=== PATIENT | female | born 1960 | race Two or more races ===

== ENCOUNTER → 2017-12-08 | Outpatient (CLI) | payer OTHER ==
--- NOTE | 2017-12-08 15:13 | RADIOLOGY REPORT (SQ) ---
EXAM DESCRIPTION: VENOUS BILATERAL LOWER COMPLETED DATE/TIME: 12/08/2017 3:01 pm REASON FOR STUDY: BLE LOCALIZED EDEMA R60.0 LOCALIZED EDEMA COMPARISON: None. TECHNIQUE: Dynamic and static mendoza scale and color images acquired of both lower extremity venous sy stems. Selected spectral images acquired with additional compression and augmentation maneuvers. Imag es stored on PACS. LIMITATIONS: None. FINDINGS: RIGHT LEG COMMON FEMORAL AND FEMORAL: Normal phasicity, compression and augmentation. No visualized echogenic m aterial on mendoza scale. No defects on color images. POPLITEAL: Normal compression and augmentation. No visualized echogenic material on mendoza scale. No de fects on color images. CALF VESSELS: Normal compression and augmentation. No visualized echogenic material on mendoza scale. No defects on color image. GSV AND SSV: Normal compression. No visualized echogenic material on mendoza scale. No defects on color images. ANY DEEP VENOUS INSUFFICIENCY: Not evaluated. ANY EVIDENCE OF POPLITEAL CYST: No. OTHER: No other significant finding. LEFT LEG COMMON FEMORAL AND FEMORAL: Normal phasicity, compression and augmentation. No visualized echogenic m aterial on mendoza scale. No defects on color images. POPLITEAL: Normal compression and augmentation. No visualized echogenic material on mendoza scale. No de fects on color images. CALF VESSELS: Normal compression and augmentation. No visualized echogenic material on mendoza scale. No defects on color images. GSV AND SSV: Normal compression. No visualized echogenic material on mendoza scale. No defects on color images. ANY DEEP VENOUS INSUFFICIENCY: Not evaluated. ANY EVIDENCE POPLITEAL CYST: No. OTHER: No other significant finding. IMPRESSION: NO EVIDENCE DVT OR SVT IN EITHER LEG. TECHNICAL DOCUMENTATION: JOB ID: [id number] [employer]- All Rights Reserved Reading location - IP/workstation name: [email or web address]
== END ==
LOC: SP 13:32
PROVIDERS: ATTEND Physician Assistant
DX: R60.0 Localized edema (principal)
CPT/HCPCS: 93970

== ENCOUNTER 2018-01-14 18:56 | Emergency (ER) | payer OTHER ==
--- NOTE | 2018-01-14 20:34 | EKG REPORT ---
SEVERITY:- BORDERLINE ECG - SINUS RHYTHM BORDERLINE PROLONGED QT INTERVAL : Confirmed by: Sp Fish 14-Jan-2018 17:34:01
[2018-01-14] MEDS ORDERED: ONDANSETRON HCL INJ/PF 4 MG/2 ML SDV IV ONE (20:36)
[2018-01-14] MEDS ORDERED: FENTANYL CITRATE INJ/PF 100 MCG/2 ML AMPUL IV ONE (20:37)
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
[2018-01-14] MEDS ORDERED: NORMAL SALINE 1000 ML 1,000 ML IV ONE (21:36)
--- NOTE | 2018-01-14 21:37 | ER Document Report ---
ED General - General Chief Complaint: Abdominal Pain Stated Complaint: ABDOMINAL PAIN, VOMITING Time Seen by Provider: 01/14/18 20:35 Notes: Patient is a 57-year-old female with a past medical history of hypertension, chronic alcohol use, restless leg syndrome, who presents with 4-5 hours of epigastric abdominal pain with associated nausea and vomiting. She states that the pain came on relatively abruptly and has been ongoing since that time. She describes it as a stabbing, moderate to severe pain to her epigastric region radiating through into her back. Nothing seems to improve or worsen her symptoms. She does admit to regular heavy alcohol use including today. She denies any history of pancreatitis in the past. She denies any history of alcohol withdrawal but does admit to drinking beer every day. She has not seen her general doctor regarding today's concerns. She denies any fever or constitutional symptoms. TRAVEL OUTSIDE OF THE [place] IN LAST 30 DAYS: No - Related Data Allergies/Adverse Reactions: No Known Allergies Allergy (Unverified 01/14/18 18:58) Past Medical History - General Information source: Patient - Social History Smoking Status: Current Every Day Smoker Cigarette use (# per day): Yes Frequency of alcohol use: Heavy Drug Abuse: None Lives with: Alone Family History: Reviewed & Not Pertinent Patient has suicidal ideation: No Patient has homicidal ideation: No Renal/ Medical History: Denies: Hx Peritoneal Dialysis Musculoskeletal Medical History: Reports Hx Arthritis Psychiatric Medical History: Reports: Hx Depression Past Surgical History: Reports: Hx Breast Surgery, Hx Oral Surgery, Hx Orthopedic Surgery Review of Systems - Review of Systems Notes: Constitutional: Negative for fever. HENT: Negative for sore throat. Eyes: Negative for visual changes. Cardiovascular: Negative for chest pain. Respiratory: Negative for shortness of breath. Gastrointestinal: Positive for abdominal pain and vomiting Genitourinary: Negative for dysuria. Musculoskeletal: Positive for mid back pain Skin: Negative for rash. Neurological: Negative for headaches, weakness or numbness. 10 point ROS negative except as marked above and in HPI. Physical Exam - Vital signs Vitals: Temp Pulse Resp BP Pulse Ox 97.5 F 64 20 128/70 H 96 01/14/18 19:11 01/14/18 19:11 01/14/18 19:11 01/14/18 19:11 01/14/18 19:11 Interpretation: Normal Notes: PHYSICAL EXAMINATION: GENERAL: Appears moderately uncomfortable but in no acute distress HEAD: Atraumatic, normocephalic. EYES: Pupils equal round and reactive to light, extraocular movements intact, sclera anicteric, conjunctiva are normal. ENT: nares patent, oropharynx clear without exudates. Moderately dry mucous membranes. NECK: Normal range of motion, supple without lymphadenopathy LUNGS: Breath sounds clear to auscultation bilaterally and equal. No wheezes rales or rhonchi. HEART: Regular rate and rhythm without murmurs ABDOMEN: Soft, focal tenderness to the epigastrium but no other localized areas of tenderness, normoactive bowel sounds. No guarding, no rebound. No masses appreciated. EXTREMITIES: Normal range of motion, no pitting or edema. No cyanosis. NEUROLOGICAL: No focal neurological deficits. Moves all extremities spontaneously and on command. PSYCH: Normal mood, normal affect. SKIN: Warm, Dry, normal turgor, no rashes or lesions noted. Course - Re-evaluation Re-evalutation: 01/14/18 21:36 Patient presents with clinical history and exam and labs to suggest acute pancreatitis. Lipase is markedly elevated today. Patient admits to alcohol use as the trigger for the acute episode of pancreatitis. Patient does have hyponatremia although we have no old for comparison but given both hyponatremia and hypochloremia consistent with heavy alcohol intake which patient does admit to. At time of arrival, patient's vitals are within normal limits, they are well-appearing and in no acute distress. The patient has tolerated oral intake without difficulty. Pain was able to be controlled here in the emergency department with oral medications. [place] score is 1. I have encouraged hospitalization for the patient given her hyponatremia and vomiting but she has declined stating she would like to go home and manage this as an outpatient. The patient states that she needs to go home, take care of her animals, and states that she will return if she is not improving. She has capacity, verbalizes understanding that she could get sicker as an outpatient which could include multiple complications including seizures, . I have emphasized with the patient that I am concerned about the low probability of success in outpatient management particularly given her frequent alcohol use. I have emphasized that I am also concerned about what would happen if she stopped drinking alcohol. The patient states that she has gone more than 24 hours repeatedly within the past 6 months without having any withdrawal symptoms and that she has never had significant alcohol withdrawal. She states that she is very confident that she can discontinue alcohol without any significant complications and does not wish to be hospitalized for management of any potential alcohol withdrawal symptoms. At this time, per patient request, will discharge with return precautions and follow-up recommendations. Verbal discharge instructions given a the bedside and opportunity for questions given. Medication warnings reviewed. Patient is in agreement with this plan and has verbalized understanding of return precautions and the need for primary care follow-up in the next 24 hours. - Vital Signs Vital signs: Temp Pulse Resp BP Pulse Ox 97.6 F 64 18 184/85 H 93 01/15/18 02:09 01/15/18 02:09 01/15/18 02:09 01/15/18 02:09 01/15/18 02:09 - Laboratory Result Diagrams: 01/14/18 21:43 01/14/18 21:43 Laboratory results interpreted by me: 01/14/18 01/14/18 01/14/18 21:43 21:43 21:43 RDW 16.1 H Seg Neutrophils % 86.7 H Lymphocytes % 9.0 L Sodium 121.5 L Potassium 3.5 L Chloride 79 L Direct Bilirubin 0.5 H AST 166 H ALT 64 H Alkaline Phosphatase 191 H Lipase 2945.5 H Urine Protein 30 H Urine Ketones TRACE H Urine Blood SMALL H - Diagnostic Test Radiology reviewed: Reports reviewed Discharge - Discharge Clinical Impression: Hyponatremia, Alcohol abuse Acute alcoholic pancreatitis Qualifiers: Acute pancreatitis complication: no infection or necrosis Qualified Code(s): K85.20 - Alcohol induced acute pancreatitis without necrosis or infection Nausea and vomiting Qualifiers: Vomiting type: unspecified Vomiting Intractability: non-intractable Qualified Code(s): R11.2 - Nausea with vomiting, unspecified Condition: Stable Disposition: HOME, SELF-CARE Additional Instructions: You were seen today for alcohol-induced pancreatitis. Please avoid alcohol in any quantity in the future as this could cause a recurrence of your pancreatitis. Please keep in mind that pancreatitis can be a very serious condition that can even result in . Your case today appears mild and it is safe for you to go home today with medications for pain and nausea. Please drink plenty of fluids such as Pedialyte, (try to avoid excessive plain water consumption because your salt level was low) over the next several days and try to avoid food ingestion until your pain is resolved. Please return to the emergency department immediately if you develop persistent vomiting that prohibits you from taking your medications or keeping fluids down, you have a seizure, you develop a fever of greater than 101F, you have worsening pain, you become confused, you become short of breath, or have any other symptoms that are worrisome to you. Please follow-up with your primary care doctor in the next 24-48 hours. Prescriptions: Morphine Sulfate [Morphine Ir 15 mg Tablet] 15 mg PO Q6HP PRN #12 tablet PRN Reason: Ondansetron [Zofran Odt 4 mg Tablet] 1 - 2 tab PO Q4H PRN #15 tab.rapdis PRN Reason: For Nausea/Vomiting Referrals: SAUL NÚÑEZ PA [Primary Care Provider] - Follow up tomorrow
[2018-01-14 22:02] LABS: ABSOLUTE LYMPHOCYTES (AUTO) 0.8 10^3/uL (0.5-4.7); ABSOLUTE MONOCYTES (AUTO) 0.3 10^3/uL (0.1-1.4); ABSOLUTE NEUT (AUTO) 7.3 10^3/uL (1.7-8.2); BASOPHILS % (AUTO) 0.3 % (0-2); EOSINOPHILS % (AUTO) 0.2 % (0-6); HEMATOCRIT 41.5 % (36.0-47.0); HEMOGLOBIN 14.7 g/dL (12.0-15.5); MEAN CORPUSCULAR HEMOGLOBIN 31.8 pg (27.0-33.4); MEAN CORPUSCULAR HGB CONC 35.4 g/dL (32.0-36.0); MEAN CORPUSCULAR VOLUME 90 fl (80-97); MONOCYTES % (AUTO) 3.8 % (3-13); PLATELET COUNT 215 10^3/uL (150-450); RED BLOOD COUNT 4.62 10^6/uL (3.72-5.28); RED CELL DISTRIBUTION WIDTH 16.1 % (11.5-14.0); SEGMENTED NEUTROPHILS % (AUTO) 86.7 % (42-78); TOTAL CELLS COUNTED % (AUTO) 100 %; WHITE BLOOD COUNT 8.4 10^3/uL (4.0-10.5)
[2018-01-14 22:18] LABS: APPEARANCE,URINE CLEAR; BILIRUBIN,URINE NEGATIVE (NEGATIVE); COLOR,URINE YELLOW; GLUCOSE, URINE NEGATIVE (NEGATIVE); KETONES,URINE TRACE mg/dL (NEGATIVE); LEUKOCYTE ESTERASE,URINE NEGATIVE (NEGATIVE); NITRITE,URINE NEGATIVE (NEGATIVE); PROTEIN,URINE 30 mg/dL (NEGATIVE); URINE SPECIFIC GRAVITY 1.016; UROBILINOGEN,URINE NEGATIVE mg/dL (<2.0)
[2018-01-14] MEDS: MORPHINE SULFATE 10 MG/ML INJ IV PRN (22:23)
[2018-01-14 22:43] LABS: ALANINE AMINOTRANSFERASE 64 U/L (9-52); ALBUMIN 4.1 g/dL (3.5-5.0); ALKALINE PHOSPHATASE 191 U/L (38-126); ANION GAP 16 (5-19); ASPARTATE AMINO TRANSFERASE 166 U/L (14-36); BILIRUBIN,DIRECT 0.5 mg/dL (0.0-0.4); BILIRUBIN,TOTAL 0.9 mg/dL (0.2-1.3); BLOOD UREA NITROGEN 11 mg/dL (7-20); CALCIUM 8.8 mg/dL (8.4-10.2); CARBON DIOXIDE 27 mmol/L (22-30); CHLORIDE 79 mmol/L (98-107); GLUCOSE 102 mg/dL (75-110); POTASSIUM 3.5 mmol/L (3.6-5.0); SODIUM 121.5 mmol/L (137-145); TOTAL PROTEIN 7.5 g/dL (6.3-8.2)
[2018-01-14 22:51] LABS: LIPASE 2945.5 U/L (23-300)
--- NOTE | 2018-01-15 00:22 | RADIOLOGY REPORT (SQ) ---
EXAM DESCRIPTION: US ABDOMEN LIMITED COMPLETED DATE/TME: 01/14/2018 21:37 CLINICAL HISTORY: upper abdominal pain, vomiting COMPARISON: None. TECHNIQUE: Real-time sonographic images of the right upper abdomen were obtained using a curved multihertz transducer. FINDINGS: Pancreas: Not visualized due to overlying structures. Vascular: The visualized portions of the aorta and IVC are unremarkable. Liver: The liver has normal contour and increased echogenicity. Hepatopedal flow in the portal vein. Findings confirmed with color and spectral Doppler imaging. The common bile duct is not visualized. Gallbladder: The gallbladder has a normal appearance. No gallstones identified. No wall thickening or pericholecystic fluid. Positive reported sonographic Albarran sign. Right Kidney: The right kidney measures 10.2 cm in length. No hydronephrosis, solid renal mass, or shadowing calculi. IMPRESSION: 1. No gallstones identified. 2. Hepatic steatosis.
[2018-01-15] MEDS: MORPHINE SULFATE 10 MG/ML INJ IV PRN (00:27)
[2018-01-15] MEDS ORDERED: NORMAL SALINE 1000 ML 1,000 ML IV ONE (00:29)
[2018-01-15] MEDS ORDERED: MORPHINE SULFATE IR 15 MG TABLET PO ONE (00:49)
[2018-01-15] MEDS ORDERED: ONDANSETRON ODT 4 MG TAB (6 TAB/ER DISP) PO PRN (00:57)
[2018-01-15 02:10] VITALS: BP 184/85
== END 2018-01-15 02:14 | disposition home or self-care (01) ==
LOC: ER 18:56
DX: K85.20 Alcohol induced acute pancreatitis without necrosis or infection (principal); F10.10 Alcohol abuse, uncomplicated; E87.1 Hypo-osmolality and hyponatremia; R11.2 Nausea with vomiting, unspecified; R10.13 Epigastric pain; F17.210 Nicotine dependence, cigarettes, uncomplicated
CPT/HCPCS: 93005; 99285; 96361; 96374; 96375; 36415; 83690; 85025; 80053; 81001; 87493; 76705; 93010; J3010; J2270 ×2; J2405; J7030

== ENCOUNTER 2018-03-24 18:19 | Emergency (ER) | payer OTHER ==
[2018-03-24] MEDS ORDERED: THIAMINE HCL 100 MG, FOLIC ACID 1 MG in NORMAL SALINE 250 ML IV ONE (19:31)
[2018-03-24] MEDS ORDERED: NORMAL SALINE 1000 ML 1,000 ML IV ONE (19:31)
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
[2018-03-24 19:39] LABS: HEMATOCRIT 37.6 % (36.0-47.0); HEMOGLOBIN 12.9 g/dL (12.0-15.5); MEAN CORPUSCULAR HEMOGLOBIN 31.8 pg (27.0-33.4); MEAN CORPUSCULAR HGB CONC 34.3 g/dL (32.0-36.0); MEAN CORPUSCULAR VOLUME 93 fl (80-97); PLATELET COUNT 114 10^3/uL (150-450); RED BLOOD COUNT 4.05 10^6/uL (3.72-5.28); RED CELL DISTRIBUTION WIDTH 14.5 % (11.5-14.0); WHITE BLOOD COUNT 2.4 10^3/uL (4.0-10.5)
[2018-03-24 19:55] LABS: ABSOLUTE MONOCYTES # (MANUAL) 0.1 10^3/uL (0.1-1.4); BASOPHILS % (MANUAL) 0 % (0-2); EOSINOPHILS % (MANUAL) 0 % (0-6); LYMPHOCYTES % (MANUAL) 26 % (13-45); MONOCYTES % (MANUAL) 4 % (3-13); SEGMENTED NEUTROPHILS % (MAN) 70 % (42-78); TOTAL CELLS COUNTED 100
[2018-03-24 19:56] LABS: ABSOLUTE LYMPHOCYTES# (MANUAL) 0.6 10^3/uL (0.5-4.7); ABSOLUTE NEUTROPHILS# (MANUAL) 1.7 10^3/uL (1.7-8.2)
[2018-03-24 19:57] LABS: ANISOCYTOSIS SLIGHT; PLATELET COMMENT ADEQUATE; POIKILOCYTOSIS SLIGHT; TARGET CELLS SLIGHT
[2018-03-24 21:18] LABS: APPEARANCE,URINE CLEAR; BILIRUBIN,URINE NEGATIVE (NEGATIVE); COLOR,URINE STRAW; GLUCOSE, URINE NEGATIVE (NEGATIVE); KETONES,URINE NEGATIVE (NEGATIVE); LEUKOCYTE ESTERASE,URINE NEGATIVE (NEGATIVE); NITRITE,URINE NEGATIVE (NEGATIVE); PROTEIN,URINE NEGATIVE (NEGATIVE); URINE SPECIFIC GRAVITY 1.002; UROBILINOGEN,URINE NEGATIVE mg/dL (<2.0)
[2018-03-24 21:23] LABS: ALANINE AMINOTRANSFERASE 132 U/L (9-52); ALCOHOL 213 mg/dL (NONE DETECTED); ALKALINE PHOSPHATASE 243 U/L (38-126); ANION GAP 18 (5-19); ASPARTATE AMINO TRANSFERASE 553 U/L (14-36); BILIRUBIN,DIRECT 0.4 mg/dL (0.0-0.4); BILIRUBIN,TOTAL 0.7 mg/dL (0.2-1.3); BLOOD UREA NITROGEN 3 mg/dL (7-20); CALCIUM 8.7 mg/dL (8.4-10.2); CARBON DIOXIDE 24 mmol/L (22-30); CHLORIDE 93 mmol/L (98-107); GLUCOSE 100 mg/dL (75-110); LIPASE 786.5 U/L (23-300); SODIUM 134.7 mmol/L (137-145)
[2018-03-24 21:36] LABS: ACETAMINOPHEN < 10 ug/mL (10-30); SALICYLATE < 1.0 mg/dL (2.0-20.0)
[2018-03-24 21:45] LABS: URINE AMPHETAMINES SCREEN NEGATIVE; URINE BARBITURATES SCREEN NEGATIVE; URINE BENZODIAZEPINES SCREEN UNCONFIRMED POSITIVE; URINE COCAINE SCREEN NEGATIVE; URINE MARIJUANA (THC) SCREEN NEGATIVE; URINE METHADONE SCREEN NEGATIVE; URINE PHENCYCLIDINE SCREEN NEGATIVE
[2018-03-24] MEDS ORDERED: KETOROLAC TROMETHAMINE INJ/PF 30 MG/1 ML SDV IV ONE (23:14)
[2018-03-24] MEDS ORDERED: LORAZEPAM 0.5 MG TABLET PO ONE (23:15)
[2018-03-24] MEDS ORDERED: BENZONATATE 100 MG CAPSULE PO ONE (23:15)
[2018-03-24] MEDS ORDERED: NICOTINE 21 MG/24 HR PATCH.TD24 TD ONE (23:15)
--- NOTE | 2018-03-24 23:44 | RADIOLOGY REPORT (SQ) ---
EXAM DESCRIPTION: XR THORACIC SPINE 2 VIEWS COMPLETED DATE/TME: 03/24/2018 23:14 CLINICAL HISTORY: 57 years, Female, pain COMPARISON: None. NUMBER OF VIEWS: 2 TECHNIQUE: Frontal and lateral views of the thoracic spine LIMITATIONS: None. FINDINGS: Vertebral body height and alignment is preserved. The disc spaces are maintained. IMPRESSION: Unremarkable exam 2010 [facility] [employer]- All Rights Reserved
[2018-03-25] MEDS ORDERED: DIPHENHYDRAMINE HCL 50 MG CAPSULE PO ONE (01:43)
[2018-03-25 06:07] VITALS: BP 177/85
[2018-03-25] MEDS ORDERED: BENZONATATE 100 MG CAPSULE PO ONE (06:08)
[2018-03-25] MEDS ORDERED: LORAZEPAM INJ 2 MG/1 ML VIAL IV ONE ×2 (06:08→08:06)
[2018-03-25] MEDS ORDERED: NORMAL SALINE 1000 ML 1,000 ML IV ONE (06:08)
[2018-03-25] MEDS ORDERED: LORAZEPAM INJ 2 MG/1 ML VIAL ONE (06:54)
[2018-03-25] MEDS ORDERED: KETOROLAC TROMETHAMINE INJ/PF 30 MG/1 ML SDV IV ONE (07:07)
[2018-03-25 07:17] LABS: ALANINE AMINOTRANSFERASE 116 U/L (9-52); ANION GAP 14 (5-19); ASPARTATE AMINO TRANSFERASE 542 U/L (14-36); BLOOD UREA NITROGEN 3 mg/dL (7-20); CALCIUM 8.7 mg/dL (8.4-10.2); CARBON DIOXIDE 28 mmol/L (22-30); CHLORIDE 94 mmol/L (98-107); GLUCOSE 99 mg/dL (75-110); POTASSIUM 3.7 mmol/L (3.6-5.0); SODIUM 136.3 mmol/L (137-145)
--- NOTE | 2018-03-25 12:40 | EKG REPORT ---
SEVERITY:- BORDERLINE ECG - SINUS RHYTHM BORDERLINE PROLONGED QT INTERVAL : Confirmed by: Cary Chopra MD 25-Mar-2018 12:39:07
--- NOTE | 2018-03-25 12:40 | EKG REPORT ---
SEVERITY:- OTHERWISE NORMAL ECG - SINUS TACHYCARDIA : Confirmed by: Cary Chopra MD 25-Mar-2018 12:39:04
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
== END 2018-03-25 14:49 | disposition home or self-care (01) ==
LOC: ER 18:19
DX: F10.10 Alcohol abuse, uncomplicated (principal); F17.200 Nicotine dependence, unspecified, uncomplicated; T43.591A Poisoning by other antipsychotics and neuroleptics, accidental (unintentional), initial encounter; X58.XXXA Exposure to other specified factors, initial encounter; Z88.2 Allergy status to sulfonamides; Z86.14 Personal history of Methicillin resistant Staphylococcus aureus infection
CPT/HCPCS: 93005 ×2; 96376; 99285; 96361; 96375; 96365; 36415; 80307 ×4; 83690; 84450; 84460; 85025; 80048; 80053; 81001; 72070; 93010 ×2; J3490; J1885 ×2; J2060; J3411; J7030 ×2; J7050

== ENCOUNTER 2018-03-26 15:39 | Emergency (ER) | payer OTHER ==
--- NOTE | 2018-03-26 16:40 | RADIOLOGY REPORT (SQ) ---
EXAM DESCRIPTION: CT HEAD WITHOUT COMPLETED DATE/TIME: 03/26/2018 4:18 pm REASON FOR STUDY: Fell and hit back of head, LOC, seizure COMPARISON: None. TECHNIQUE: Axial images acquired through the brain without intravenous contrast. Images reviewed wi th bone, brain and subdural windows. Images stored on PACS. All CT scanners at this facility use dose modulation, iterative reconstruction, and/or weight based d osing when appropriate to reduce radiation dose to as low as reasonably achievable (ALARA). [facility]: Dose Right [facility]: CareDose [facility]: Dose Right [facility]: Teradose 4D [facility]: [employer] RADIATION DOSE: CT Rad equipment meets quality standard of care and radiation dose reduction techniq ues were employed. CTDIvol: 53.2 mGy. DLP: 1070 mGy-cm. mGy. LIMITATIONS: None. FINDINGS: VENTRICLES: Normal size and contour. CEREBRUM: No masses. No hemorrhage. No midline shift. No evidence for acute infarction. Normal gra y/white matter differentiation. No areas of low density in the white matter. CEREBELLUM: No masses. No hemorrhage. No alteration of density. No evidence for acute infarction. EXTRAAXIAL SPACES: No fluid collections. No masses. ORBITS AND GLOBE: No intra- or extraconal masses. Normal contour of globe without masses. CALVARIUM: No fracture. PARANASAL SINUSES: No fluid or mucosal thickening. SOFT TISSUES: Posterior soft tissue swelling. OTHER: No other significant finding. IMPRESSION: No intracranial hemorrhage or fracture.Posterior soft tissue swelling. EVIDENCE OF ACUTE STROKE: NO. COMMENT: Quality ID # 436: Final reports with documentation of one or more dose reduction techniques (e.g., Automated exposure control, adjustment of the mA and/or kV according to patient size, use of iterative reconstruction technique) TECHNICAL DOCUMENTATION: JOB ID: [id number] [place]-72 2010 [email or web address]- All Rights Reserved Reading location - IP/workstation name: [email or web address]
--- NOTE | 2018-03-26 16:49 | RADIOLOGY REPORT (SQ) ---
EXAM DESCRIPTION: CT CERVICAL SPINE WITHOUT COMPLETED DATE/TIME: 03/26/2018 4:18 pm REASON FOR STUDY: Fell and hit back of head, LOC, seizure COMPARISON: None. TECHNIQUE: Axial images acquired through the cervical spine without intravenous contrast. Images re viewed with lung, soft tissue and bone windows. Reconstructed coronal and sagittal MPR images review ed. Images stored on PACS. All CT scanners at this facility use dose modulation, iterative reconstruction, and/or weight based d osing when appropriate to reduce radiation dose to as low as reasonably achievable (ALARA). [facility]: Dose Right [facility]: CareDose [facility]: Dose Right [facility]: Teradose 4D [facility]: [employer] RADIATION DOSE: CT Rad equipment meets quality standard of care and radiation dose reduction techniq ues were employed. CTDIvol: 21.3 mGy. DLP: 529 mGy-cm. mGy. LIMITATIONS: None. FINDINGS: ALIGNMENT: Anatomic. MINERALIZATION: Normal. VERTEBRAL BODIES: No fractures or dislocation. DISCS: No significant disc disease. FACETS, LATERAL MASSES, POSTERIOR ELEMENTS: No fractures. No dislocation. No acute findings. HARDWARE: None in the spine. VISUALIZED RIBS: No fractures. LUNG APICES AND SOFT TISSUES: Left thyroid inferior nodule with calcifications. OTHER: Fluid in the right middle ear, correlate for otitis. IMPRESSION: No evidence for acute osseous injury. Fluid in the right middle ear, correlate for otit is.Left thyroid inferior nodule with calcifications. TECHNICAL DOCUMENTATION: JOB ID: [id number] [place]-72 Quality ID # [id number]: Final reports with documentation of one or more dose reduction techniques (e.g., Au tomated exposure control, adjustment of the mA and/or kV according to patient size, use of iterative reconstruction technique) 2010 [employer]- All Rights Reserved Reading location - IP/workstation name: [email or web address]
[2018-03-26 17:18] LABS: ALANINE AMINOTRANSFERASE 111 U/L (9-52); ALBUMIN 4.2 g/dL (3.5-5.0); ALCOHOL 159 mg/dL (NONE DETECTED); ALKALINE PHOSPHATASE 254 U/L (38-126); ASPARTATE AMINO TRANSFERASE 408 U/L (14-36); BILIRUBIN,DIRECT 0.9 mg/dL (0.0-0.4); BILIRUBIN,TOTAL 1.8 mg/dL (0.2-1.3); BLOOD UREA NITROGEN 4 mg/dL (7-20); CALCIUM 8.9 mg/dL (8.4-10.2); GLUCOSE 105 mg/dL (75-110); POTASSIUM 3.8 mmol/L (3.6-5.0); TOTAL PROTEIN 7.4 g/dL (6.3-8.2)
[2018-03-26 17:23] LABS: ABSOLUTE LYMPHOCYTES (AUTO) 0.6 10^3/uL (0.5-4.7); ABSOLUTE MONOCYTES (AUTO) 0.4 10^3/uL (0.1-1.4); ABSOLUTE NEUT (AUTO) 6.6 10^3/uL (1.7-8.2); BASOPHILS % (AUTO) 0.2 % (0-2); CARBON DIOXIDE 26 mmol/L (22-30); CHLORIDE 79 mmol/L (98-107); EOSINOPHILS % (AUTO) 0.3 % (0-6); HEMATOCRIT 42.7 % (36.0-47.0); HEMOGLOBIN 14.8 g/dL (12.0-15.5); MEAN CORPUSCULAR HEMOGLOBIN 32.4 pg (27.0-33.4); MEAN CORPUSCULAR HGB CONC 34.7 g/dL (32.0-36.0); MEAN CORPUSCULAR VOLUME 93 fl (80-97); MONOCYTES % (AUTO) 4.7 % (3-13); RED BLOOD COUNT 4.58 10^6/uL (3.72-5.28); RED CELL DISTRIBUTION WIDTH 14.3 % (11.5-14.0); SEGMENTED NEUTROPHILS % (AUTO) 86.8 % (42-78); SODIUM 125.7 mmol/L (137-145); TOTAL CELLS COUNTED % (AUTO) 100 %
[2018-03-26 17:24] LABS: PLATELET COUNT 92 10^3/uL (150-450); WHITE BLOOD COUNT 7.6 10^3/uL (4.0-10.5)
[2018-03-26] MEDS ORDERED: LORAZEPAM INJ 2 MG/1 ML VIAL ONE (17:48)
[2018-03-26 17:51] LABS: ANION GAP 20 (5-19)
[2018-03-26] MEDS: NORMAL SALINE 1000 ML 1,000 ML IV PRN ×2 (18:00→18:01)
[2018-03-26] MEDS ORDERED: LORAZEPAM INJ 2 MG/1 ML VIAL IV ONE (18:32)
[2018-03-26] MEDS ORDERED: LEVETIRACETAM 1500 MG/NACL-ISO 1,500 MG/100 ML RTUPB IV ONE (18:40)
[2018-03-26] MEDS ORDERED: LIDOCAINE 1%/EPINEPHRINE INJ 20 ML VIAL INJ ONE (18:45)
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
--- NOTE | 2018-03-26 18:58 | RADIOLOGY REPORT (SQ) ---
EXAM DESCRIPTION: CHEST SINGLE VIEW COMPLETED DATE/TIME: 03/26/2018 6:47 pm REASON FOR STUDY: Seizure, rule out aspiration COMPARISON: None. EXAM PARAMETERS: NUMBER OF VIEWS: One view. TECHNIQUE: Single frontal radiographic view of the chest acquired. RADIATION DOSE: NA LIMITATIONS: None. FINDINGS: LUNGS AND PLEURA: No opacities, masses or pneumothorax. No pleural effusion. MEDIASTINUM AND HILAR STRUCTURES: No masses. Contour normal. HEART AND VASCULAR STRUCTURES: Heart normal in size. Normal vasculature. BONES: No acute findings. HARDWARE: None in the chest. OTHER: No other significant finding. IMPRESSION: NO ACUTE RADIOGRAPHIC FINDING IN THE CHEST. TECHNICAL DOCUMENTATION: JOB ID: [id number] [place]-72 2010 [employer]- All Rights Reserved Reading location - IP/workstation name: [email or web address]
[2018-03-26] MEDS ORDERED: LEVETIRACETAM INJ/PF 500 MG/5 ML SDV IV ONE (19:19)
[2018-03-26] MEDS ORDERED: LEVETIRACETAM 500 MG/NACL-ISO 500 MG/100 ML RTUPB IV ONE (20:26)
[2018-03-26] MEDS ORDERED: LEVETIRACETAM 1000 MG/NACL-ISO 1,000 MG/100 ML RTUPB IV ONE (20:26)
[2018-03-26] MEDS ORDERED: ONDANSETRON 4 MG TAB.RAPDIS PO ONE (20:26)
[2018-03-26] MEDS ORDERED: ONDANSETRON HCL INJ/PF 4 MG/2 ML SDV ONE (20:27)
[2018-03-26] MEDS ORDERED: ONDANSETRON HCL INJ/PF 4 MG/2 ML SDV IV ONE (20:32)
[2018-03-26 21:05] VITALS: BP 117/70
== END 2018-03-26 21:32 | disposition short-term general hospital (02) ==
LOC: ER 15:39
DX: S01.01XA Laceration without foreign body of scalp, initial encounter (principal); W19.XXXA Unspecified fall, initial encounter; Y92.009 Unspecified place in unspecified non-institutional (private) residence as the place of occurrence of the external cause; F10.129 Alcohol abuse with intoxication, unspecified; R56.9 Unspecified convulsions; E87.1 Hypo-osmolality and hyponatremia; F17.200 Nicotine dependence, unspecified, uncomplicated; Z88.2 Allergy status to sulfonamides
CPT/HCPCS: 99291; 96361; 96375; 96365; 36415; 80307; 85025; 80053; 71045; 70450; 72125; 12002; J3490; J2060; J2405; J7030; J1953

== ENCOUNTER 2018-07-29 11:23 | Inpatient (IN) | payer OTHER ==
[2018-07-29] MEDS ORDERED: NORMAL SALINE 500 ML IV ONE (11:44)
[2018-07-29 12:09] LABS: ABSOLUTE LYMPHOCYTES (AUTO) 0.9 10^3/uL (0.5-4.7); ABSOLUTE MONOCYTES (AUTO) 0.3 10^3/uL (0.1-1.4); ABSOLUTE NEUT (AUTO) 3.8 10^3/uL (1.7-8.2); BASOPHILS % (AUTO) 0.8 % (0-2); EOSINOPHILS % (AUTO) 0.2 % (0-6); HEMATOCRIT 37.9 % (36.0-47.0); HEMOGLOBIN 13.2 g/dL (12.0-15.5); LYMPHOCYTES % (AUTO) 17.6 % (13-45); MEAN CORPUSCULAR HEMOGLOBIN 30.5 pg (27.0-33.4); MEAN CORPUSCULAR VOLUME 87 fl (80-97); MONOCYTES % (AUTO) 6.7 % (3-13); PLATELET COUNT 130 10^3/uL (150-450); RED BLOOD COUNT 4.33 10^6/uL (3.72-5.28); RED CELL DISTRIBUTION WIDTH 15.8 % (11.5-14.0); SEGMENTED NEUTROPHILS % (AUTO) 74.7 % (42-78); TOTAL CELLS COUNTED % (AUTO) 100 %
[2018-07-29 12:39] LABS: ALANINE AMINOTRANSFERASE 144 U/L (9-52); ALKALINE PHOSPHATASE 280 U/L (38-126); ASPARTATE AMINO TRANSFERASE 506 U/L (14-36); BILIRUBIN,DIRECT 0.8 mg/dL (0.0-0.4); BILIRUBIN,TOTAL 1.3 mg/dL (0.2-1.3); BLOOD UREA NITROGEN 7 mg/dL (7-20); CARBON DIOXIDE 26 mmol/L (22-30); CHLORIDE 78 mmol/L (98-107); GLUCOSE 92 mg/dL (75-110); SODIUM 124.5 mmol/L (137-145); TOTAL PROTEIN 8.1 g/dL (6.3-8.2)
[2018-07-29 12:40] LABS: ACETAMINOPHEN < 10 ug/mL (10-30); SALICYLATE < 1.0 mg/dL (2.0-20.0)
[2018-07-29 12:45] LABS: ANION GAP 21 (5-19)
[2018-07-29 12:49] LABS: ALCOHOL 426 mg/dL (NONE DETECTED)
--- NOTE | 2018-07-29 13:06 | RADIOLOGY REPORT (SQ) ---
EXAM DESCRIPTION: CT HEAD WITHOUT COMPLETED DATE/TIME: 07/29/2018 12:43 pm REASON FOR STUDY: fall trauma SI attempt COMPARISON: 03/26/2018 TECHNIQUE: Axial images acquired through the brain without intravenous contrast. Images reviewed wi th bone, brain and subdural windows. Images stored on PACS. All CT scanners at this facility use dose modulation, iterative reconstruction, and/or weight based d osing when appropriate to reduce radiation dose to as low as reasonably achievable (ALARA). [facility]: Dose Right [facility]: CareDose [facility]: Dose Right [facility]: Teradose 4D [facility]: Smart [employer] RADIATION DOSE: CT Rad equipment meets quality standard of care and radiation dose reduction techniq ues were employed. CTDIvol: 53.2 mGy. DLP: 1070 mGy-cm. mGy. LIMITATIONS: None. FINDINGS: VENTRICLES: Normal size and contour. CEREBRUM: No masses. No hemorrhage. No midline shift. No evidence for acute infarction. Normal gra y/white matter differentiation. No areas of low density in the white matter. CEREBELLUM: No masses. No hemorrhage. No alteration of density. No evidence for acute infarction. EXTRAAXIAL SPACES: No fluid collections. No masses. ORBITS AND GLOBE: No intra- or extraconal masses. Normal contour of globe without masses. CALVARIUM: No fracture. PARANASAL SINUSES: No fluid or mucosal thickening. SOFT TISSUES: No mass or hematoma. OTHER: No other significant finding. IMPRESSION: No acute intracranial findings. EVIDENCE OF ACUTE STROKE: NO. COMMENT: Quality ID # 436: Final reports with documentation of one or more dose reduction techniques (e.g., Automated exposure control, adjustment of the mA and/or kV according to patient size, use of iterative reconstruction technique) TECHNICAL DOCUMENTATION: JOB ID: [id number] [place]-72 2010 [employer]- All Rights Reserved Reading location - IP/workstation name: [email or web address]
--- NOTE | 2018-07-29 13:11 | RADIOLOGY REPORT (SQ) ---
EXAM DESCRIPTION: CT CERVICAL SPINE WITHOUT COMPLETED DATE/TIME: 07/29/2018 12:43 pm REASON FOR STUDY: fall trauma SI attempt COMPARISON: None. TECHNIQUE: Axial images acquired through the cervical spine without intravenous contrast. Images re viewed with lung, soft tissue and bone windows. Reconstructed coronal and sagittal MPR images review ed. Images stored on PACS. All CT scanners at this facility use dose modulation, iterative reconstruction, and/or weight based d osing when appropriate to reduce radiation dose to as low as reasonably achievable (ALARA). [facility]: Dose Right [facility]: CareDose [facility]: Dose Right [facility]: Teradose 4D [facility]: [employer] RADIATION DOSE: CT Rad equipment meets quality standard of care and radiation dose reduction techniq ues were employed. CTDIvol: 22.3 mGy. DLP: 451 mGy-cm. mGy. LIMITATIONS: None. FINDINGS: ALIGNMENT: Anatomic. MINERALIZATION: Normal. VERTEBRAL BODIES: No fractures or dislocation. DISCS: Multilevel disc space narrowing with osteophytes. FACETS, LATERAL MASSES, POSTERIOR ELEMENTS: Facet arthropathy. No fractures. No dislocation. No ac dari findings. HARDWARE: None in the spine. VISUALIZED RIBS: No fractures. LUNG APICES AND SOFT TISSUES: No acute findings. Similar left thyroid nodule with calcifications. OTHER: No other significant finding. IMPRESSION: CHRONIC DEGENERATIVE CHANGES. NO ACUTE FINDINGS. Similar left thyroid nodule with calci fications. TECHNICAL DOCUMENTATION: JOB ID: [id number] [place]-72 Quality ID # [id number]: Final reports with documentation of one or more dose reduction techniques (e.g., Au tomated exposure control, adjustment of the mA and/or kV according to patient size, use of iterative reconstruction technique) 2010 [employer]- All Rights Reserved Reading location - IP/workstation name: [email or web address]
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
--- NOTE | 2018-07-29 13:26 | RADIOLOGY REPORT (SQ) ---
EXAM DESCRIPTION: CT ABD/PELVIS WITH IV ONLY COMPLETED DATE/TIME: 07/29/2018 12:48 pm REASON FOR STUDY: fall trauma SI attempt COMPARISON: None. TECHNIQUE: CT scan of the abdomen and pelvis performed using helical scanning technique with dynamic intravenous contrast injection. No oral contrast. Images reviewed with lung, soft tissue, and bone windows. Reconstructed coronal and sagittal MPR images reviewed. Delayed images for evaluation of the urinary system also acquired. All images stored on PACS. All CT scanners at this facility use dose modulation, iterative reconstruction, and/or weight based d osing when appropriate to reduce radiation dose to as low as reasonably achievable (ALARA). [facility]: Dose Right [facility]: CareDose [facility]: Dose Right [facility]: Teradose 4D [facility]: [employer] CONTRAST TYPE AND DOSE: contrast/concentration: Isovue 350.00 mg/ml; Total Contrast Delivered: 100.0 ml; Total Saline Delivered: 56.7 ml RENAL FUNCTION: Deferred by the emergency room physician RADIATION DOSE: 14 mGy. LIMITATIONS: None. FINDINGS: LOWER CHEST: No significant findings. No nodules or infiltrates. LIVER: Normal size. Diffuse low attenuation throughout the liver from profound fatty infiltration. SPLEEN: Normal size. No focal lesions. PANCREAS: Peripancreatic inflammation in the retroperitoneum on coronal image 31. No pancreatic pseu docyst is identified. GALLBLADDER: Multiple stones in the gallbladder ADRENAL GLANDS: No significant masses or asymmetry. RIGHT KIDNEY AND URETER: No solid masses. No significant calcifications. No hydronephrosis or hyd roureter. LEFT KIDNEY AND URETER: No solid masses. No significant calcifications. No hydronephrosis or hydr oureter. AORTA AND VESSELS: No aneurysm. No dissection. Renal arteries, SMA, celiac without stenosis. RETROPERITONEUM: No retroperitoneal adenopathy, hemorrhage or masses. BOWEL AND PERITONEAL CAVITY: No free intraperitoneal air or free intra-abdominal or pelvic fluid. No CT evidence of bowel obstruction. APPENDIX: Normal. PELVIS: No mass. No free fluid. Normal bladder. Normal size female pelvic organs ABDOMINAL WALL: No masses. No hernias. BONES: Biconcave vertebral body deformity at L2 with kyphoplasty. No acute fractures over the lumbar spine and bony pelvis OTHER: No other significant finding. IMPRESSION: Fatty liver Gallstones Peripancreatic retroperitoneal inflammation, question pancreatitis TECHNICAL DOCUMENTATION: JOB ID: [id number] Quality ID # [id number]: Final reports with documentation of one or more dose reduction techniques (e.g., Au tomated exposure control, adjustment of the mA and/or kV according to patient size, use of iterative reconstruction technique) 2010 [email or web address]- All Rights Reserved Reading location - IP/workstation name: [email or web address]
--- NOTE | 2018-07-29 13:33 | RADIOLOGY REPORT (SQ) ---
EXAM DESCRIPTION: CT CHEST WITH COMPLETED DATE/TIME: 07/29/2018 12:48 pm REASON FOR STUDY: fall trauma SI attempt COMPARISON: CT cervical spine same date TECHNIQUE: CT scan of the chest performed using helical scanning technique with dynamic intravenous contrast injection. Images reviewed with lung, soft tissue and bone windows. Reconstructed coronal and sagittal MPR and MIP images reviewed. All images stored on PACS. All CT scanners at this facility use dose modulation, iterative reconstruction, and/or weight based d osing when appropriate to reduce radiation dose to as low as reasonably achievable (ALARA). [facility]: Dose Right [facility]: CareDose [facility]: Dose Right [facility]: Teradose 4D [facility]: [email or web address] CONTRAST TYPE AND DOSE: 100 mL IV Omnipaque 350- low osmolar. RENAL FUNCTION: Deferred by the emergency room physician RADIATION DOSE: CT Rad equipment meets quality standard of care and radiation dose reduction techniq ues were employed. CTDIvol: 9.6 - 14.4 mGy. DLP: 1528 mGy-cm. . LIMITATIONS: None. FINDINGS: LUNGS AND PLEURA: No opacities, nodules, masses. No pneumothorax. No effusions. HILAR AND MEDIASTINAL STRUCTURES: No identified masses or abnormal nodes. HEART AND VASCULAR STRUCTURES: No aneurysm or dissection. No central pulmonary emboli. No pericardi al effusion. HARDWARE: None in the chest. UPPER ABDOMEN: Fatty liver, gallstones, peripancreatic retroperitoneal fluid worrisome for acute panc reatitis THYROID AND OTHER SOFT TISSUES: Partially calcified 1 cm left lower pole thyroid nodule BONES: No significant finding. OTHER: No other significant finding. IMPRESSION: No acute changes TECHNICAL DOCUMENTATION: JOB ID: [id number] Quality ID # [id number]: Final reports with documentation of one or more dose reduction techniques (e.g., Au tomated exposure control, adjustment of the mA and/or kV according to patient size, use of iterative reconstruction technique) 2010 [employer]- All Rights Reserved Reading location - IP/workstation name: [email or web address]
[2018-07-29 13:55] LABS: APPEARANCE,URINE SLIGHTLY-CLOUDY; BILIRUBIN,URINE NEGATIVE (NEGATIVE); COLOR,URINE YELLOW; GLUCOSE, URINE NEGATIVE (NEGATIVE); KETONES,URINE 20 mg/dL (NEGATIVE); LEUKOCYTE ESTERASE,URINE TRACE (NEGATIVE); NITRITE,URINE NEGATIVE (NEGATIVE); PROTEIN,URINE 30 mg/dL (NEGATIVE); URINE SPECIFIC GRAVITY 1.025; UROBILINOGEN,URINE NEGATIVE mg/dL (<2.0)
[2018-07-29 14:09] LABS: URINE AMPHETAMINES SCREEN NEGATIVE; URINE BARBITURATES SCREEN NEGATIVE; URINE BENZODIAZEPINES SCREEN NEGATIVE; URINE COCAINE SCREEN NEGATIVE; URINE MARIJUANA (THC) SCREEN NEGATIVE; URINE METHADONE SCREEN NEGATIVE; URINE PHENCYCLIDINE SCREEN NEGATIVE
[2018-07-29] MEDS ORDERED: KETOROLAC TROMETHAMINE INJ/PF 30 MG/1 ML SDV IV ONE (14:21)
[2018-07-29] MEDS ORDERED: NORMAL SALINE 1000 ML 1,000 ML IV ONE (14:21)
[2018-07-29] MEDS ORDERED: DIAZEPAM INJ 10 MG/2 ML DISP.SYRIN IV ONE (14:23)
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
[2018-07-29] MEDS: PROPRANOLOL HCL 20 MG TABLET PO SCH ×2 (17:35→21:54)
[2018-07-29] MEDS: LORAZEPAM INJ 2 MG/1 ML VIAL IV PRN ×2 (17:35→20:54)
[2018-07-29] MEDS: NORMAL SALINE 1000 ML 1,000 ML IV PRN (17:35)
[2018-07-29] MEDS ORDERED: THIAMINE HCL 500 MG in NORMAL SALINE 250 ML IV SCH (18:45)
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
[2018-07-29] MEDS: ACETAMINOPHEN 325 MG TABLET PO PRN (19:12)
[2018-07-29] MEDS: DULOXETINE HCL 30 MG CAPSULE.DR PO SCH (19:12)
[2018-07-29] MEDS: HYDROXYZINE PAMOATE 25 MG CAPSULE PO SCH ×2 (19:12→21:54)
--- NOTE | 2018-07-29 20:53 | EKG REPORT ---
SEVERITY:- OTHERWISE NORMAL ECG - SINUS TACHYCARDIA : Confirmed by: Cary Chopra MD 29-Jul-2018 20:52:44
[2018-07-29] MEDS: HEPARIN SOD (PORCINE) 5,000 UNIT/ML 1 ML SYRINGE SUBCUT SCH (21:51)
[2018-07-29] MEDS: THIAMINE HCL 100 MG TABLET PO SCH (21:51)
[2018-07-29] MEDS: ROPINIROLE HCL 1 MG TABLET PO SCH (21:54)
[2018-07-29] MEDS: QUETIAPINE FUMARATE 25 MG TABLET PO SCH (21:54)
[2018-07-29] MEDS: NALBUPHINE HCL INJ 10 MG/1 ML AMPULE IV PRN (21:55)
[2018-07-29] MEDS ORDERED: (PENDING PHARMACY ID) (Ropinirole Hcl [Requip] 0.5 MG) PO SCH (22:00)
[2018-07-30] MEDS: LORAZEPAM INJ 2 MG/1 ML VIAL IV PRN ×5 (02:28→23:26)
[2018-07-30] MEDS: NORMAL SALINE 1000 ML 1,000 ML IV PRN ×2 (02:33→13:48)
[2018-07-30] MEDS: NALBUPHINE HCL INJ 10 MG/1 ML AMPULE IV PRN (05:21)
[2018-07-30] MEDS: THIAMINE HCL 100 MG TABLET PO SCH ×3 (05:21→21:06)
[2018-07-30] MEDS: HEPARIN SOD (PORCINE) 5,000 UNIT/ML 1 ML SYRINGE SUBCUT SCH ×3 (05:21→21:07)
[2018-07-30 08:24] LABS: HEMOGLOBIN 12.5 g/dL (12.0-15.5); MEAN CORPUSCULAR HEMOGLOBIN 30.3 pg (27.0-33.4); MEAN CORPUSCULAR HGB CONC 34.8 g/dL (32.0-36.0); MEAN CORPUSCULAR VOLUME 87 fl (80-97); PLATELET COUNT 101 10^3/uL (150-450); RED BLOOD COUNT 4.14 10^6/uL (3.72-5.28); RED CELL DISTRIBUTION WIDTH 15.8 % (11.5-14.0); WHITE BLOOD COUNT 6.9 10^3/uL (4.0-10.5)
[2018-07-30] MEDS: DULOXETINE HCL 30 MG CAPSULE.DR PO SCH ×2 (09:01→17:43)
[2018-07-30] MEDS: PROPRANOLOL HCL 20 MG TABLET PO SCH ×2 (09:01→21:07)
[2018-07-30] MEDS: HYDROXYZINE PAMOATE 25 MG CAPSULE PO SCH ×4 (09:01→21:07)
[2018-07-30 09:43] LABS: CHOLESTEROL 256.45 mg/dL (0-200); TRIGLYCERIDES 56 mg/dL (<150)
[2018-07-30 09:53] LABS: DIRECT LDL 54 mg/dL (<100)
[2018-07-30 10:04] LABS: LIPASE 9352.1 U/L (23-300)
[2018-07-30] MEDS: AMLODIPINE BESYLATE 10 MG TABLET PO SCH (13:45)
[2018-07-30] MEDS: MAGNESIUM SULFATE/D5W 1 GM/100 ML RTUPB IV SCH ×2 (13:45→15:02)
[2018-07-30 15:20] LABS: ALANINE AMINOTRANSFERASE 125 U/L (9-52); ALBUMIN 4.5 g/dL (3.5-5.0); ALKALINE PHOSPHATASE 248 U/L (38-126); ANION GAP 16 (5-19); ASPARTATE AMINO TRANSFERASE 345 U/L (14-36); BILIRUBIN,DIRECT 0.7 mg/dL (0.0-0.4); BILIRUBIN,TOTAL 1.8 mg/dL (0.2-1.3); BLOOD UREA NITROGEN 5 mg/dL (7-20); CALCIUM 9.1 mg/dL (8.4-10.2); CARBON DIOXIDE 29 mmol/L (22-30); CHLORIDE 83 mmol/L (98-107); GLUCOSE 99 mg/dL (75-110); SODIUM 128.3 mmol/L (137-145); TOTAL PROTEIN 7.5 g/dL (6.3-8.2)
[2018-07-30 15:42] LABS: POTASSIUM 2.9 mmol/L (3.6-5.0)
--- NOTE | 2018-07-30 16:02 | PDOC PROGRESS REPORT ---
Subjective Progress Note for:: 07/30/18 Subjective:: The patient was seen earlier today on rounds. The patient was lying in bed. The patient was more awake and alert but still very slow to process. The patient has been tolerating her clear liquids without issue and denies any pain when asked. The patient denies any nausea, vomiting, diarrhea, shortness of breath, dizziness, chest pain, heart palpitations, fevers, or chills. The patient has remained afebrile. Blood pressures have been elevated. When prompted the patient voices no other concerns at this time. Review of systems: The rest of the review of systems is negative. Reason For Visit: PANCREATITIS, ETOH INTOXICATION Physical Exam Vital Signs: Temp Pulse Resp BP Pulse Ox 97.4 F 74 16 180/78 H 94 07/30/18 08:28 07/30/18 10:10 07/30/18 08:28 07/30/18 10:10 07/30/18 08:28 Intake & Output 07/28/18 07/29/18 07/30/18 23:59 23:59 23:59 Intake Total 1500 2574 Balance 1500 2574 Weight 69.7 kg 70.9 kg On examination the patient is awake, alert, oriented, to place but without insight to situation. The patient is verbal, conversational, ambulatory with assistance. Does not appear to be in any acute distress. Skin is warm and dry, no rash, not diaphoretic. Multiple areas of bruising. HEENT: no JVD. Pupils are reactive. CVS: Heart is regular, is no murmur or rub. Chest: Is clear to auscultation. Abdomen: Is soft, bowel sounds present. Extremities: There is no edema. Healing cuts. Psychiatric: Wernicke's type presentation Neurological: Uncooperative Results Laboratory Results: 07/30/18 07:09 07/30/18 08:58 07/29/18 07/30/18 07/30/18 11:47 07:09 07:09 WBC 6.9 RBC 4.14 Hgb 12.5 Hct 36.0 MCV 87 MCH 30.3 MCHC 34.8 RDW 15.8 H Plt Count 101 L Sodium Potassium Chloride Carbon Dioxide Anion Gap BUN Creatinine Est GFR ( Amer) Est GFR (Non-Af Amer) Glucose Calcium Magnesium 1.9 Cancelled Total Bilirubin AST ALT Alkaline Phosphatase Total Protein Albumin Triglycerides Cancelled Cholesterol Cancelled LDL Cholesterol Direct Cancelled VLDL Cholesterol Cancelled HDL Cholesterol Cancelled Lipase Cancelled 07/30/18 07/30/18 08:58 08:58 WBC RBC Hgb Hct MCV MCH MCHC RDW Plt Count Sodium 128.3 L Potassium 2.9 L* D Chloride 83 L Carbon Dioxide 29 Anion Gap 16 BUN 5 L Creatinine 0.34 L Est GFR ( Amer) > 60 Est GFR (Non-Af Amer) > 60 Glucose 99 Calcium 9.1 Magnesium 1.5 L Total Bilirubin 1.8 H AST 345 H ALT 125 H Alkaline Phosphatase 248 H Total Protein 7.5 Albumin 4.5 Triglycerides 56 Cholesterol 256.45 H LDL Cholesterol Direct 54 VLDL Cholesterol 11.0 HDL Cholesterol 86 Lipase 9352.1 H 07/29/18 11:47 Troponin I < 0.012 Impressions: Abdomen/Pelvis CT 07/29/18 11:42 IMPRESSION: Fatty liver Gallstones Peripancreatic retroperitoneal inflammation, question pancreatitis Cervical Spine CT 07/29/18 11:42 IMPRESSION: CHRONIC DEGENERATIVE CHANGES. NO ACUTE FINDINGS. Similar left thyroid nodule with calcifications. Chest CT 07/29/18 11:42 IMPRESSION: No acute changes Head CT 07/29/18 11:42 IMPRESSION: No acute intracranial findings. EVIDENCE OF ACUTE STROKE: NO. Assessment & Plan - Diagnosis (1) Acute alcohol intoxication Qualifiers: Complication of substance-induced condition: uncomplicated Qualified Code(s): F10.920 - Alcohol use, unspecified with intoxication, uncomplicated Is this a current diagnosis for this admission?: Yes Plan: Continue CIWA protocol. Replete magnesium level. Supplement high-dose thiamine. (2) Alcohol dependence, continuous Is this a current diagnosis for this admission?: Yes Plan: As per #1 (3) Hyponatremia Is this a current diagnosis for this admission?: Yes Plan: Secondary to the patient's alcoholism. Patient is being gently hydrated. (4) Pancreatitis Qualifiers: Pancreatitis type: unspecified pancreatitis type Acute pancreatitis complication: unspecified Is this a current diagnosis for this admission?: Yes Plan: Most likely due to her alcohol intake. Will continue to hydrate and continue fat-free clear liquids. (5) Suicide attempt Is this a current diagnosis for this admission?: Yes Plan: The patient has been IV DC'd and will be followed by mental health. Patient can be placed when medically cleared. (6) Hypokalemia Is this a current diagnosis for this admission?: Yes Plan: Will replete after magnesium. (7) Alcoholic hepatitis Qualifiers: Ascites presence: without ascites Qualified Code(s): K70.10 - Alcoholic hepatitis without ascites Is this a current diagnosis for this admission?: Yes Plan: Most likely has an underlying cirrhosis. It is trending down we will follow LFTs. - Time Time Spent with patient: 25-34 minutes Medications reviewed and adjusted accordingly: Yes Anticipated discharge: Other - Alcohol rehab Within: within 72 hours Disposition: The patient is a full code. Pending patient's symptomatology and diagnostic findings will reevaluate in the a.m.
[2018-07-30] MEDS ORDERED: HYDROXYZINE PAMOATE 50 MG CAPSULE PO PRN (17:33)
[2018-07-30] MEDS: BUSPIRONE HCL 10 MG TABLET PO SCH (17:42)
[2018-07-30] MEDS: OLANZAPINE 5 MG TABLET PO SCH (17:43)
[2018-07-30] MEDS: POTASSI CL 20 MEQ/50 ML RIDER 20 MEQ/50 ML RTUPB IV SCH ×2 (17:55→19:39)
[2018-07-30] MEDS ORDERED: POTASSIUM CHLORIDE 10 MEQ CAPSULE.ER PO ONE (17:55)
[2018-07-30] MEDS: ACETAMINOPHEN 325 MG TABLET PO PRN (21:07)
[2018-07-30] MEDS: ROPINIROLE HCL 1 MG TABLET PO SCH (21:07)
[2018-07-30] MEDS: QUETIAPINE FUMARATE 25 MG TABLET PO SCH (21:07)
[2018-07-31] MEDS: NORMAL SALINE 1000 ML 1,000 ML IV PRN ×3 (01:16→19:00)
[2018-07-31] MEDS: LORAZEPAM INJ 2 MG/1 ML VIAL IV PRN ×4 (03:20→23:46)
[2018-07-31] MEDS: HEPARIN SOD (PORCINE) 5,000 UNIT/ML 1 ML SYRINGE SUBCUT SCH ×3 (05:30→21:45)
[2018-07-31] MEDS: THIAMINE HCL 100 MG TABLET PO SCH ×3 (05:30→21:49)
[2018-07-31] MEDS: OLANZAPINE 5 MG TABLET PO SCH ×2 (09:02→17:38)
[2018-07-31] MEDS: DULOXETINE HCL 30 MG CAPSULE.DR PO SCH ×2 (09:02→17:37)
[2018-07-31] MEDS: HYDROXYZINE PAMOATE 25 MG CAPSULE PO SCH ×4 (09:02→21:48)
[2018-07-31] MEDS: PROPRANOLOL HCL 20 MG TABLET PO SCH ×2 (09:03→21:48)
[2018-07-31] MEDS: BUSPIRONE HCL 10 MG TABLET PO SCH ×2 (09:03→17:37)
[2018-07-31] MEDS: AMLODIPINE BESYLATE 10 MG TABLET PO SCH (09:03)
[2018-07-31] MEDS: BENZTROPINE MESYLATE 1 MG TABLET PO SCH (09:04)
[2018-07-31] MEDS: NICOTINE 21 MG/24 HR PATCH.TD24 TD SCH (09:04)
[2018-07-31 12:30] LABS: ALANINE AMINOTRANSFERASE 91 U/L (9-52); ALBUMIN 4.4 g/dL (3.5-5.0); ALKALINE PHOSPHATASE 250 U/L (38-126); ANION GAP 15 (5-19); ASPARTATE AMINO TRANSFERASE 157 U/L (14-36); BILIRUBIN,DIRECT 0.6 mg/dL (0.0-0.4); BILIRUBIN,TOTAL 1.8 mg/dL (0.2-1.3); BLOOD UREA NITROGEN 5 mg/dL (7-20); CALCIUM 9.6 mg/dL (8.4-10.2); CARBON DIOXIDE 27 mmol/L (22-30); CHLORIDE 84 mmol/L (98-107); GLUCOSE 123 mg/dL (75-110); POTASSIUM 3.1 mmol/L (3.6-5.0); SODIUM 125.6 mmol/L (137-145); TOTAL PROTEIN 7.5 g/dL (6.3-8.2)
[2018-07-31 12:39] LABS: LIPASE 2927.3 U/L (23-300)
--- NOTE | 2018-07-31 14:07 | PDOC PROGRESS REPORT ---
Subjective Progress Note for:: 07/31/18 Subjective:: The patient was seen earlier today on rounds. The patient was lying in bed. The patient was more awake and alert but still very slow to process. The patient has been tolerating her clear liquids without issue and denies any pain when asked. The patient denies any nausea, vomiting, diarrhea, shortness of breath, dizziness, chest pain, heart palpitations, fevers, or chills. The patient has remained afebrile. Blood pressures have been elevated. Remains confused. Brief history: The patient was admitted on Wednesday due to dehydration, hyponatremia, alcohol int oxication, alcoholic pancreatitis, and suicide attempt by slashing her wrist. The patient was admitted to [facility] and was placed on CIWA protocol. The patient has been supplemented high-dose thiamine and has been hydrated. Of course the patient has required significant electrolyte correction including magnesium and potassium. The patient has been evaluated by the psychiatric service for whom she is familiar with. Medication adjustments have been made by recommendation. Once the patient is stabilized she is to go to [facility]. Reason For Visit: PANCREATITIS, ETOH INTOXICATION Physical Exam Vital Signs: Temp Pulse Resp BP Pulse Ox 97.7 F 97 22 H 155/89 H 95 07/31/18 11:43 07/31/18 13:32 07/31/18 11:43 07/31/18 11:43 07/31/18 11:43 Intake & Output 07/29/18 07/30/18 08/01/18 23:59 23:59 00:59 Intake Total 1500 3989 1083 Output Total 1700 700 Balance 1500 2289 383 Weight 69.7 kg 70.9 kg 70.5 kg On examination the patient is awake, alert, oriented, to place but without insight to situation. The patient is verbal, conversational, ambulatory with assistance. Does not appear to be in any acute distress. Skin is warm and dry, no rash, not diaphoretic. Multiple areas of bruising. HEENT: no JVD. Pupils are reactive. CVS: Heart is regular, is no murmur or rub. Chest: Is clear to auscultation. Abdomen: Is soft, bowel sounds present. Extremities: There is no edema. Healing cuts. Psychiatric: Remains delirious Neurological: Uncooperative Results Laboratory Results: 07/30/18 07:09 07/31/18 12:02 07/30/18 07/31/18 07/31/18 08:58 12:02 12:02 Sodium 128.3 L 125.6 L Potassium 2.9 L* D 3.1 L Chloride 83 L 84 L Carbon Dioxide 29 27 Anion Gap 16 15 BUN 5 L 5 L Creatinine 0.34 L 0.34 L Est GFR ( Amer) > 60 > 60 Est GFR (Non-Af Amer) > 60 > 60 Glucose 99 123 H Calcium 9.1 9.6 Magnesium 1.5 L Total Bilirubin 1.8 H 1.8 H AST 345 H 157 H ALT 125 H 91 H Alkaline Phosphatase 248 H 250 H Ammonia 10.0 Total Protein 7.5 7.5 Albumin 4.5 4.4 Lipase 2927.3 H 07/29/18 11:47 Troponin I < 0.012 Impressions: Abdomen/Pelvis CT 07/29/18 11:42 IMPRESSION: Fatty liver Gallstones Peripancreatic retroperitoneal inflammation, question pancreatitis Cervical Spine CT 07/29/18 11:42 IMPRESSION: CHRONIC DEGENERATIVE CHANGES. NO ACUTE FINDINGS. Similar left thyroid nodule with calcifications. Chest CT 07/29/18 11:42 IMPRESSION: No acute changes Head CT 07/29/18 11:42 IMPRESSION: No acute intracranial findings. EVIDENCE OF ACUTE STROKE: NO. Assessment & Plan - Diagnosis (1) Acute alcohol intoxication Qualifiers: Complication of substance-induced condition: uncomplicated Qualified Code(s): F10.920 - Alcohol use, unspecified with intoxication, uncomplicated Is this a current diagnosis for this admission?: Yes Plan: Continue CIWA protocol. Replete magnesium level. Supplement high-dose thiamine. (2) Alcohol dependence, continuous Is this a current diagnosis for this admission?: Yes Plan: As per #1 (3) Hyponatremia Is this a current diagnosis for this admission?: Yes Plan: Secondary to the patient's alcoholism and most likely underlying cirrhosis (4) Pancreatitis Qualifiers: Chronicity: acute Pancreatitis type: alcohol induced Acute pancreatitis complication: unspecified Qualified Code(s): K85.20 - Alcohol induced acute pancreatitis without necrosis or infection Is this a current diagnosis for this admission?: Yes Plan: Most likely due to her alcohol intake. Will continue to hydrate and continue fat-free full liquids (5) Suicide attempt Is this a current diagnosis for this admission?: Yes Plan: The patient was IV DC'd and will be followed by mental health. Psych has rescinded the IVC. Patient can be placed when medically cleared. (6) Hypokalemia Is this a current diagnosis for this admission?: Yes Plan: Will replete after magnesium. (7) Alcoholic hepatitis Qualifiers: Ascites presence: without ascites Qualified Code(s): K70.10 - Alcoholic hepatitis without ascites Is this a current diagnosis for this admission?: Yes Plan: Most likely has an underlying cirrhosis. Transaminitis is clearing - Time Time Spent with patient: 25-34 minutes Medications reviewed and adjusted accordingly: Yes Anticipated discharge: Other - [facility] Within: within 48 hours Disposition: The patient is a full code. Pending patient's symptomatology and diagnostic findings will reevaluate in the a.m.
[2018-07-31] MEDS: MAGNESIUM SULFATE/D5W 1 GM/100 ML RTUPB IV SCH ×2 (14:24→15:34)
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
[2018-07-31] MEDS: POTASSI CL 20 MEQ/50 ML RIDER 20 MEQ/50 ML RTUPB IV SCH ×2 (17:39→18:59)
[2018-07-31] MEDS: ROPINIROLE HCL 1 MG TABLET PO SCH (21:48)
[2018-07-31] MEDS: QUETIAPINE FUMARATE 25 MG TABLET PO SCH (21:49)
[2018-08-01] MEDS: NORMAL SALINE 1000 ML 1,000 ML IV PRN ×3 (03:18→19:59)
[2018-08-01] MEDS: HEPARIN SOD (PORCINE) 5,000 UNIT/ML 1 ML SYRINGE SUBCUT SCH ×3 (06:11→21:58)
[2018-08-01] MEDS: THIAMINE HCL 100 MG TABLET PO SCH ×3 (06:12→22:16)
[2018-08-01 06:27] LABS: ALANINE AMINOTRANSFERASE 57 U/L (9-52); ALBUMIN 3.1 g/dL (3.5-5.0); ALKALINE PHOSPHATASE 185 U/L (38-126); ANION GAP 11 (5-19); ASPARTATE AMINO TRANSFERASE 84 U/L (14-36); BILIRUBIN,DIRECT 0.3 mg/dL (0.0-0.4); BILIRUBIN,TOTAL 1.3 mg/dL (0.2-1.3); BLOOD UREA NITROGEN 8 mg/dL (7-20); CALCIUM 8.6 mg/dL (8.4-10.2); CARBON DIOXIDE 25 mmol/L (22-30); CHLORIDE 92 mmol/L (98-107); GLUCOSE 110 mg/dL (75-110); LIPASE 1005.1 U/L (23-300); SODIUM 128.3 mmol/L (137-145); TOTAL PROTEIN 5.8 g/dL (6.3-8.2)
[2018-08-01 06:30] LABS: POTASSIUM 2.7 mmol/L (3.6-5.0)
[2018-08-01] MEDS: POTASSIUM CHLORIDE 20 MEQ/50 ML RTU IV SCH ×2 (06:56→09:08)
[2018-08-01] MEDS ORDERED: POTASSIUM CHLORIDE 10 MEQ CAPSULE.ER PO ONE (07:00)
[2018-08-01] MEDS: HYDROXYZINE PAMOATE 25 MG CAPSULE PO SCH ×4 (09:52→22:16)
[2018-08-01] MEDS: BENZTROPINE MESYLATE 1 MG TABLET PO SCH (09:52)
[2018-08-01] MEDS: BUSPIRONE HCL 10 MG TABLET PO SCH ×2 (09:53→18:07)
[2018-08-01] MEDS: NICOTINE 21 MG/24 HR PATCH.TD24 TD SCH (09:53)
[2018-08-01] MEDS: PROPRANOLOL HCL 20 MG TABLET PO SCH ×2 (09:53→22:16)
[2018-08-01] MEDS: OLANZAPINE 5 MG TABLET PO SCH ×2 (09:53→18:07)
[2018-08-01] MEDS: DULOXETINE HCL 30 MG CAPSULE.DR PO SCH ×2 (09:53→18:06)
[2018-08-01] MEDS: AMLODIPINE BESYLATE 10 MG TABLET PO SCH (09:53)
[2018-08-01 16:08] LABS: APPEARANCE,URINE SLIGHTLY-CLOUDY; BILIRUBIN,URINE NEGATIVE (NEGATIVE); COLOR,URINE AMBER; GLUCOSE, URINE NEGATIVE (NEGATIVE); KETONES,URINE TRACE mg/dL (NEGATIVE); LEUKOCYTE ESTERASE,URINE TRACE (NEGATIVE); NITRITE,URINE NEGATIVE (NEGATIVE); PROTEIN,URINE 100 mg/dL (NEGATIVE); URINE SPECIFIC GRAVITY 1.021
--- NOTE | 2018-08-01 16:18 | PDOC PROGRESS REPORT ---
Subjective Progress Note for:: 08/01/18 Subjective:: This is a 57 years old female patient with past medical history of depression and alcohol abuse brought by EMS for being suicide. Her initial blood work shows markedly elevated lipase of 9352 she has also elevated liver chemistry. Her BMP shows hypokalemia with potassium of 2.7. This morning I seen patient resting in bed and she has foul-smelling diarrhea which tested positive for C. difficile colitis. Reason For Visit: PANCREATITIS, ETOH INTOXICATION Physical Exam Vital Signs: Temp Pulse Resp BP Pulse Ox 98.4 F 74 18 122/73 99 08/01/18 11:21 08/01/18 11:21 08/01/18 11:21 08/01/18 11:21 08/01/18 11:21 Intake & Output 07/31/18 08/01/18 08/02/18 06:59 06:59 06:59 Intake Total 3521 1150 Output Total Balance 3521 1150 Weight 70.5 kg Results Laboratory Results: 07/30/18 07:09 08/01/18 05:20 08/01/18 08/01/18 05:20 12:30 Sodium 128.3 L Potassium 2.7 L* Chloride 92 L Carbon Dioxide 25 Anion Gap 11 BUN 8 Creatinine 0.43 L Est GFR ( Amer) > 60 Est GFR (Non-Af Amer) > 60 Glucose 110 Calcium 8.6 Magnesium 1.9 Total Bilirubin 1.3 AST 84 H ALT 57 H Alkaline Phosphatase 185 H Total Protein 5.8 L Albumin 3.1 L Lipase 1005.1 H Stool Occult Blood NEGATIVE 07/29/18 11:47 Troponin I < 0.012 Impressions: Abdomen/Pelvis CT 07/29/18 11:42 IMPRESSION: Fatty liver Gallstones Peripancreatic retroperitoneal inflammation, question pancreatitis Cervical Spine CT 07/29/18 11:42 IMPRESSION: CHRONIC DEGENERATIVE CHANGES. NO ACUTE FINDINGS. Similar left thyroid nodule with calcifications. Chest CT 07/29/18 11:42 IMPRESSION: No acute changes Head CT 07/29/18 11:42 IMPRESSION: No acute intracranial findings. EVIDENCE OF ACUTE STROKE: NO. Assessment & Plan - Diagnosis (1) Clostridium difficile colitis Is this a current diagnosis for this admission?: Yes Plan: Patient has been started on Flagyl and vancomycin. (2) Hypokalemia Is this a current diagnosis for this admission?: Yes Plan: Repleted (3) Acute pancreatitis Qualifiers: Pancreatitis type: alcohol induced Is this a current diagnosis for this admission?: Yes Plan: Bowel rest aggressive hydration and pain control. (4) Suicide attempt Is this a current diagnosis for this admission?: Yes Plan: Patient denies she is suicidal. Had been evaluated by psych and she is clipped.
[2018-08-01] MEDS: METRONIDAZOLE 500 MG TABLET PO SCH ×2 (18:06→23:53)
[2018-08-01] MEDS: VANCOMYCIN HCL INJ 500 MG VIAL PO SCH ×2 (18:07→23:53)
[2018-08-01] MEDS: LORAZEPAM INJ 2 MG/1 ML VIAL IV PRN (18:34)
[2018-08-01] MEDS: ROPINIROLE HCL 1 MG TABLET PO SCH (22:16)
[2018-08-01] MEDS: QUETIAPINE FUMARATE 25 MG TABLET PO SCH (22:16)
[2018-08-02] MEDS: NORMAL SALINE 1000 ML 1,000 ML IV PRN ×2 (04:05→12:06)
[2018-08-02] MEDS: HEPARIN SOD (PORCINE) 5,000 UNIT/ML 1 ML SYRINGE SUBCUT SCH ×3 (05:24→21:14)
[2018-08-02] MEDS: VANCOMYCIN HCL INJ 500 MG VIAL PO SCH ×4 (05:30→23:26)
[2018-08-02] MEDS: THIAMINE HCL 100 MG TABLET PO SCH ×3 (05:30→21:26)
[2018-08-02] MEDS: METRONIDAZOLE 500 MG TABLET PO SCH ×4 (05:30→23:26)
[2018-08-02] MEDS: AMLODIPINE BESYLATE 10 MG TABLET PO SCH (09:10)
[2018-08-02] MEDS: DULOXETINE HCL 30 MG CAPSULE.DR PO SCH ×2 (09:11→17:32)
[2018-08-02] MEDS: BENZTROPINE MESYLATE 1 MG TABLET PO SCH (09:11)
[2018-08-02] MEDS: NICOTINE 21 MG/24 HR PATCH.TD24 TD SCH (09:11)
[2018-08-02] MEDS: BUSPIRONE HCL 10 MG TABLET PO SCH ×2 (09:11→17:33)
[2018-08-02] MEDS: OLANZAPINE 5 MG TABLET PO SCH ×2 (09:11→17:33)
[2018-08-02] MEDS: PROPRANOLOL HCL 20 MG TABLET PO SCH ×2 (09:11→21:25)
[2018-08-02] MEDS: HYDROXYZINE PAMOATE 25 MG CAPSULE PO SCH ×4 (09:11→21:26)
[2018-08-02] MEDS: NALBUPHINE HCL INJ 10 MG/1 ML AMPULE IV PRN (11:59)
[2018-08-02 12:03] LABS: ANION GAP 9 (5-19); BLOOD UREA NITROGEN 5 mg/dL (7-20); CALCIUM 8.4 mg/dL (8.4-10.2); CARBON DIOXIDE 24 mmol/L (22-30); CHLORIDE 98 mmol/L (98-107); GLUCOSE 125 mg/dL (75-110); SODIUM 131.1 mmol/L (137-145)
[2018-08-02 12:09] LABS: POTASSIUM 2.7 mmol/L (3.6-5.0)
[2018-08-02] MEDS: POTASSIUM CHLORIDE 20 MEQ/50 ML RTU IV SCH ×4 (13:32→19:47)
--- NOTE | 2018-08-02 14:32 | PDOC PROGRESS REPORT ---
Subjective Progress Note for:: 08/02/18 Subjective:: I seen patient resting in bed comfortably. She does not have new complaint. And she reports that the frequency of her diarrhea is relatively decreasing. Her repeat BMP shows still she has hypokalemia with potassium of 2.7. Despite getting K rider. Reason For Visit: PANCREATITIS, ETOH INTOXICATION Physical Exam Vital Signs: Temp Pulse Resp BP Pulse Ox 98.4 F 81 17 125/68 96 08/02/18 11:39 08/02/18 11:39 08/02/18 11:39 08/02/18 11:39 08/02/18 11:39 Intake & Output 08/01/18 08/02/18 08/03/18 06:59 06:59 06:59 Intake Total 3521 3268 1100 Balance 3521 3268 1100 Weight 70.5 kg 74.3 kg General appearance: PRESENT: no acute distress Eye exam: PRESENT: conjunctiva pink Mouth exam: PRESENT: moist Neck exam: ABSENT: carotid bruit, JVD, lymphadenopathy, thyromegaly Respiratory exam: PRESENT: clear to auscultation jose. ABSENT: rales, rhonchi, wheezes Cardiovascular exam: PRESENT: RRR. ABSENT: diastolic murmur, rubs, systolic murmur GI/Abdominal exam: PRESENT: normal bowel sounds, soft. ABSENT: distended, guarding, mass, organolmegaly, rebound, tenderness Neurological exam: PRESENT: alert, awake, oriented to person, oriented to place, oriented to time, oriented to situation, CN II-XII grossly intact. ABSENT: motor sensory deficit Psychiatric exam: PRESENT: normal mood Results Laboratory Results: 07/30/18 07:09 08/02/18 10:24 08/01/18 08/02/18 15:10 10:24 Sodium 131.1 L Potassium 2.7 L* Chloride 98 Carbon Dioxide 24 Anion Gap 9 BUN 5 L Creatinine 0.37 L Est GFR ( Amer) > 60 Est GFR (Non-Af Amer) > 60 Glucose 125 H Calcium 8.4 Urine Color MALCOM Urine Appearance SLIGHTLY-CLOUDY Urine pH 6.0 Ur Specific [place] 1.021 Urine Protein 100 H Urine Glucose (UA) NEGATIVE Urine Ketones TRACE H Urine Blood SMALL H Urine Nitrite NEGATIVE Ur Leukocyte Esterase TRACE H Urine WBC (Auto) 15 Urine RBC (Auto) 15 07/29/18 11:47 Troponin I < 0.012 Impressions: Abdomen/Pelvis CT 07/29/18 11:42 IMPRESSION: Fatty liver Gallstones Peripancreatic retroperitoneal inflammation, question pancreatitis Cervical Spine CT 07/29/18 11:42 IMPRESSION: CHRONIC DEGENERATIVE CHANGES. NO ACUTE FINDINGS. Similar left thyroid nodule with calcifications. Chest CT 07/29/18 11:42 IMPRESSION: No acute changes Head CT 07/29/18 11:42 IMPRESSION: No acute intracranial findings. EVIDENCE OF ACUTE STROKE: NO. Assessment & Plan - Diagnosis (1) Clostridium difficile colitis Is this a current diagnosis for this admission?: Yes Plan: Patient has been started on Flagyl and vancomycin. (2) Hypokalemia Is this a current diagnosis for this admission?: Yes Plan: I started her with Sean hernandez (3) Acute pancreatitis Qualifiers: Pancreatitis type: alcohol induced Is this a current diagnosis for this admission?: Yes Plan: Bowel rest aggressive hydration and pain control. (4) Suicide attempt Is this a current diagnosis for this admission?: Yes Plan: Patient denies she is suicidal. Had been evaluated by psych and she is clipped. (5) Alcoholism /alcohol abuse Is this a current diagnosis for this admission?: Yes Plan: Patient advised to remain sober.
[2018-08-02] MEDS: LORAZEPAM INJ 2 MG/1 ML VIAL IV PRN (18:51)
[2018-08-02] MEDS: ROPINIROLE HCL 1 MG TABLET PO SCH (21:25)
[2018-08-02] MEDS: QUETIAPINE FUMARATE 25 MG TABLET PO SCH (21:26)
[2018-08-02] MEDS: ACETAMINOPHEN 325 MG TABLET PO PRN (21:26)
[2018-08-03] MEDS: LORAZEPAM INJ 2 MG/1 ML VIAL IV PRN ×3 (02:51→21:26)
[2018-08-03] MEDS: HEPARIN SOD (PORCINE) 5,000 UNIT/ML 1 ML SYRINGE SUBCUT SCH ×3 (05:15→21:22)
[2018-08-03] MEDS: METRONIDAZOLE 500 MG TABLET PO SCH ×3 (05:18→18:17)
[2018-08-03] MEDS: THIAMINE HCL 100 MG TABLET PO SCH ×3 (05:18→21:23)
[2018-08-03] MEDS: VANCOMYCIN HCL INJ 500 MG VIAL PO SCH ×3 (05:18→18:17)
[2018-08-03] MEDS: ACETAMINOPHEN 325 MG TABLET PO PRN (05:19)
[2018-08-03 06:47] LABS: ALANINE AMINOTRANSFERASE 45 U/L (9-52); ALBUMIN 3.3 g/dL (3.5-5.0); ALKALINE PHOSPHATASE 142 U/L (38-126); ANION GAP 7 (5-19); ASPARTATE AMINO TRANSFERASE 47 U/L (14-36); BILIRUBIN,DIRECT 0.2 mg/dL (0.0-0.4); BILIRUBIN,TOTAL 0.7 mg/dL (0.2-1.3); BLOOD UREA NITROGEN 5 mg/dL (7-20); CALCIUM 8.7 mg/dL (8.4-10.2); CARBON DIOXIDE 25 mmol/L (22-30); CHLORIDE 101 mmol/L (98-107); GLUCOSE 157 mg/dL (75-110); POTASSIUM 3.1 mmol/L (3.6-5.0); SODIUM 133.2 mmol/L (137-145); TOTAL PROTEIN 6.2 g/dL (6.3-8.2)
[2018-08-03] MEDS: DULOXETINE HCL 30 MG CAPSULE.DR PO SCH ×2 (10:38→18:16)
[2018-08-03] MEDS: AMLODIPINE BESYLATE 10 MG TABLET PO SCH (10:38)
[2018-08-03] MEDS: PROPRANOLOL HCL 20 MG TABLET PO SCH ×2 (10:38→21:23)
[2018-08-03] MEDS: BUSPIRONE HCL 10 MG TABLET PO SCH ×2 (10:38→18:17)
[2018-08-03] MEDS: BENZTROPINE MESYLATE 1 MG TABLET PO SCH (10:38)
[2018-08-03] MEDS: OLANZAPINE 5 MG TABLET PO SCH ×2 (10:38→18:17)
[2018-08-03] MEDS: HYDROXYZINE PAMOATE 25 MG CAPSULE PO SCH ×4 (10:38→21:24)
[2018-08-03] MEDS: NICOTINE 21 MG/24 HR PATCH.TD24 TD SCH (10:39)
--- NOTE | 2018-08-03 14:16 | PDOC PROGRESS REPORT ---
Subjective Progress Note for:: 08/03/18 Subjective:: No new complaint. Has diarrhea is subsiding. Her hypokalemia also improving. Reason For Visit: PANCREATITIS, ETOH INTOXICATION Physical Exam Vital Signs: Temp Pulse Resp BP Pulse Ox 97.8 F 83 18 140/95 H 95 08/03/18 12:41 08/03/18 12:41 08/03/18 12:41 08/03/18 12:41 08/03/18 12:41 Intake & Output 08/02/18 08/03/18 08/04/18 06:59 06:59 06:59 Intake Total 3268 2534 340 Output Total 550 500 Balance 3268 1984 -160 Weight 74.3 kg 76.3 kg General appearance: PRESENT: no acute distress Head exam: PRESENT: atraumatic Eye exam: PRESENT: conjunctiva pink Mouth exam: PRESENT: moist Neck exam: ABSENT: carotid bruit, JVD, lymphadenopathy, thyromegaly Respiratory exam: PRESENT: clear to auscultation jose. ABSENT: rales, rhonchi, wheezes Cardiovascular exam: PRESENT: RRR. ABSENT: diastolic murmur, rubs, systolic murmur GI/Abdominal exam: PRESENT: normal bowel sounds, soft. ABSENT: distended, guarding, mass, organolmegaly, rebound, tenderness Neurological exam: PRESENT: alert, awake, oriented to time, oriented to situation. ABSENT: motor sensory deficit Results Laboratory Results: 07/30/18 07:09 08/03/18 05:39 08/03/18 05:39 Sodium 133.2 L Potassium 3.1 L Chloride 101 Carbon Dioxide 25 Anion Gap 7 BUN 5 L Creatinine 0.42 L Est GFR ( Amer) > 60 Est GFR (Non-Af Amer) > 60 Glucose 157 H Calcium 8.7 Total Bilirubin 0.7 AST 47 H ALT 45 Alkaline Phosphatase 142 H Total Protein 6.2 L Albumin 3.3 L 07/29/18 11:47 Troponin I < 0.012 Impressions: Abdomen/Pelvis CT 07/29/18 11:42 IMPRESSION: Fatty liver Gallstones Peripancreatic retroperitoneal inflammation, question pancreatitis Cervical Spine CT 07/29/18 11:42 IMPRESSION: CHRONIC DEGENERATIVE CHANGES. NO ACUTE FINDINGS. Similar left thyroid nodule with calcifications. Chest CT 07/29/18 11:42 IMPRESSION: No acute changes Head CT 07/29/18 11:42 IMPRESSION: No acute intracranial findings. EVIDENCE OF ACUTE STROKE: NO. Assessment & Plan - Diagnosis (1) Elevated liver chemistry Is this a current diagnosis for this admission?: Yes Plan: Most probably related to her pancreatitis. Now it is trending down. (2) Clostridium difficile colitis Is this a current diagnosis for this admission?: Yes Plan: Patient has been started on Flagyl and vancomycin. (3) Hypokalemia Is this a current diagnosis for this admission?: Yes Plan: Improving (4) Acute pancreatitis Qualifiers: Pancreatitis type: alcohol induced Is this a current diagnosis for this admission?: Yes Plan: Bowel rest aggressive hydration and pain control. (5) Suicide attempt Is this a current diagnosis for this admission?: Yes Plan: Patient denies she is suicidal. Had been evaluated by psych and she is clipped. (6) Alcoholism /alcohol abuse Is this a current diagnosis for this admission?: Yes Plan: Patient advised to remain sober.
[2018-08-03] MEDS ORDERED: POTASSIUM CHLORIDE 10 MEQ CAPSULE.ER PO ONE (15:00)
[2018-08-03] MEDS: NALBUPHINE HCL INJ 10 MG/1 ML AMPULE IV PRN (19:51)
[2018-08-03] MEDS: ROPINIROLE HCL 1 MG TABLET PO SCH (21:24)
[2018-08-03] MEDS: QUETIAPINE FUMARATE 25 MG TABLET PO SCH (21:26)
[2018-08-04] MEDS: VANCOMYCIN HCL INJ 500 MG VIAL PO SCH ×4 (00:17→17:01)
[2018-08-04] MEDS: METRONIDAZOLE 500 MG TABLET PO SCH ×4 (00:17→17:05)
[2018-08-04] MEDS: NALBUPHINE HCL INJ 10 MG/1 ML AMPULE IV PRN ×4 (03:35→21:24)
[2018-08-04] MEDS: THIAMINE HCL 100 MG TABLET PO SCH ×3 (05:29→21:36)
[2018-08-04] MEDS: HEPARIN SOD (PORCINE) 5,000 UNIT/ML 1 ML SYRINGE SUBCUT SCH ×3 (05:30→21:22)
[2018-08-04] MEDS: LORAZEPAM INJ 2 MG/1 ML VIAL IV PRN ×4 (07:11→19:34)
[2018-08-04 07:22] LABS: ANION GAP 10 (5-19); BLOOD UREA NITROGEN 5 mg/dL (7-20); CALCIUM 9.1 mg/dL (8.4-10.2); CARBON DIOXIDE 26 mmol/L (22-30); CHLORIDE 101 mmol/L (98-107); GLUCOSE 153 mg/dL (75-110); LIPASE 611.7 U/L (23-300); POTASSIUM 3.5 mmol/L (3.6-5.0); SODIUM 137.2 mmol/L (137-145)
[2018-08-04] MEDS: AMLODIPINE BESYLATE 10 MG TABLET PO SCH (09:43)
[2018-08-04] MEDS: OLANZAPINE 5 MG TABLET PO SCH ×2 (09:43→17:02)
[2018-08-04] MEDS: NICOTINE 21 MG/24 HR PATCH.TD24 TD SCH (09:44)
[2018-08-04] MEDS: BUSPIRONE HCL 10 MG TABLET PO SCH ×2 (09:44→17:02)
[2018-08-04] MEDS: BENZTROPINE MESYLATE 1 MG TABLET PO SCH (09:44)
[2018-08-04] MEDS: PROPRANOLOL HCL 20 MG TABLET PO SCH ×2 (09:44→21:22)
[2018-08-04] MEDS: HYDROXYZINE PAMOATE 25 MG CAPSULE PO SCH ×4 (09:44→21:22)
[2018-08-04] MEDS: DULOXETINE HCL 30 MG CAPSULE.DR PO SCH ×2 (09:44→17:02)
[2018-08-04] MEDS ORDERED: POTASSIUM CHLORIDE 10 MEQ CAPSULE.ER PO ONE (10:30)
--- NOTE | 2018-08-04 10:38 | PDOC PROGRESS REPORT ---
Subjective Progress Note for:: 08/04/18 Subjective:: Seen patient sitting up in bed enjoying her breakfast. The frequency" assistance of her diarrhea has markedly improved. Since patient is deconditioned physical therapy consulted and will follow their recommendation. Reason For Visit: PANCREATITIS, ETOH INTOXICATION Physical Exam Vital Signs: Temp Pulse Resp BP Pulse Ox 97.7 F 79 16 136/83 H 96 08/04/18 08:14 08/04/18 08:14 08/04/18 08:14 08/04/18 08:14 08/04/18 08:14 Intake & Output 08/03/18 08/04/18 08/05/18 06:59 06:59 06:59 Intake Total 2534 577 Output Total 550 1950 Balance 1983 Weight 76.3 kg 73.7 kg General appearance: PRESENT: no acute distress, well-developed, well-nourished Head exam: PRESENT: atraumatic, normocephalic Eye exam: PRESENT: conjunctiva pink, EOMI, PERRLA. ABSENT: scleral icterus Ear exam: PRESENT: normal external ear exam Mouth exam: PRESENT: moist, tongue midline Neck exam: ABSENT: carotid bruit, JVD, lymphadenopathy, thyromegaly Respiratory exam: PRESENT: clear to auscultation jose. ABSENT: rales, rhonchi, wheezes Cardiovascular exam: PRESENT: RRR. ABSENT: diastolic murmur, rubs, systolic murmur Pulses: PRESENT: normal dorsalis pedis pul Vascular exam: PRESENT: normal capillary refill GI/Abdominal exam: PRESENT: normal bowel sounds, soft. ABSENT: distended, guarding, mass, organolmegaly, rebound, tenderness Rectal exam: PRESENT: deferred Extremities exam: PRESENT: full ROM. ABSENT: calf tenderness, clubbing, pedal edema Neurological exam: PRESENT: alert, awake, oriented to person, oriented to place, oriented to time, oriented to situation, CN II-XII grossly intact. ABSENT: motor sensory deficit Psychiatric exam: PRESENT: appropriate affect, normal mood. ABSENT: homicidal ideation, suicidal ideation Skin exam: PRESENT: dry, intact, warm. ABSENT: cyanosis, rash Results Laboratory Results: 07/30/18 07:09 08/04/18 06:12 08/04/18 06:12 Sodium 137.2 Potassium 3.5 L Chloride 101 Carbon Dioxide 26 Anion Gap 10 BUN 5 L Creatinine 0.45 L Est GFR ( Amer) > 60 Est GFR (Non-Af Amer) > 60 Glucose 153 H Calcium 9.1 Lipase 611.7 H 08/01/18 12:30 Stool - Stool - Final 07/29/18 11:47 Troponin I < 0.012 Impressions: Abdomen/Pelvis CT 07/29/18 11:42 IMPRESSION: Fatty liver Gallstones Peripancreatic retroperitoneal inflammation, question pancreatitis Cervical Spine CT 07/29/18 11:42 IMPRESSION: CHRONIC DEGENERATIVE CHANGES. NO ACUTE FINDINGS. Similar left thyroid nodule with calcifications. Chest CT 07/29/18 11:42 IMPRESSION: No acute changes Head CT 07/29/18 11:42 IMPRESSION: No acute intracranial findings. EVIDENCE OF ACUTE STROKE: NO. Assessment & Plan - Diagnosis (1) Elevated liver chemistry Is this a current diagnosis for this admission?: Yes Plan: Most probably related to her pancreatitis. Now it is trending down. (2) Clostridium difficile colitis Is this a current diagnosis for this admission?: Yes Plan: Patient has been started on Flagyl and vancomycin. (3) Hypokalemia Is this a current diagnosis for this admission?: Yes Plan: Improving (4) Acute pancreatitis Qualifiers: Pancreatitis type: alcohol induced Is this a current diagnosis for this admission?: Yes Plan: Bowel rest aggressive hydration and pain control. (5) Suicide attempt Is this a current diagnosis for this admission?: Yes Plan: Patient denies she is suicidal. Had been evaluated by psych and she is clipped. (6) Alcoholism /alcohol abuse Is this a current diagnosis for this admission?: Yes Plan: Patient advised to remain sober.
[2018-08-04] MEDS: ACETAMINOPHEN 325 MG TABLET PO PRN (15:30)
[2018-08-04] MEDS: QUETIAPINE FUMARATE 25 MG TABLET PO SCH (21:22)
[2018-08-04] MEDS: ROPINIROLE HCL 1 MG TABLET PO SCH (21:22)
[2018-08-05] MEDS: LORAZEPAM INJ 2 MG/1 ML VIAL IV PRN ×4 (00:03→22:41)
[2018-08-05] MEDS: METRONIDAZOLE 500 MG TABLET PO SCH ×5 (00:05→23:12)
[2018-08-05] MEDS: VANCOMYCIN HCL INJ 500 MG VIAL PO SCH ×5 (00:05→23:12)
[2018-08-05] MEDS: THIAMINE HCL 100 MG TABLET PO SCH ×3 (05:01→21:23)
[2018-08-05] MEDS: HEPARIN SOD (PORCINE) 5,000 UNIT/ML 1 ML SYRINGE SUBCUT SCH ×3 (05:08→21:26)
[2018-08-05] MEDS: NALBUPHINE HCL INJ 10 MG/1 ML AMPULE IV PRN (10:24)
[2018-08-05] MEDS: HYDROXYZINE PAMOATE 25 MG CAPSULE PO SCH ×4 (10:25→21:19)
[2018-08-05] MEDS: BUSPIRONE HCL 10 MG TABLET PO SCH ×2 (10:25→17:17)
[2018-08-05] MEDS: PROPRANOLOL HCL 20 MG TABLET PO SCH ×2 (10:25→21:19)
[2018-08-05] MEDS: AMLODIPINE BESYLATE 10 MG TABLET PO SCH (10:25)
[2018-08-05] MEDS: BENZTROPINE MESYLATE 1 MG TABLET PO SCH (10:25)
[2018-08-05] MEDS: NICOTINE 21 MG/24 HR PATCH.TD24 TD SCH (10:25)
[2018-08-05] MEDS: DULOXETINE HCL 30 MG CAPSULE.DR PO SCH ×2 (10:25→17:17)
[2018-08-05] MEDS: OLANZAPINE 5 MG TABLET PO SCH ×2 (10:25→17:17)
[2018-08-05] MEDS: DIAZEPAM 5 MG TABLET PO SCH ×3 (11:27→21:19)
--- NOTE | 2018-08-05 12:45 | PDOC PROGRESS REPORT ---
Subjective Progress Note for:: 08/05/18 Subjective:: I seen patient resting in bed. Reportedly she had an episode of hallucination agitation and reportedly patient is awake alert but oriented to self only. Physical therapy recommended SNF placement at Reason For Visit: PANCREATITIS, ETOH INTOXICATION Physical Exam Vital Signs: Temp Pulse Resp BP Pulse Ox 97.5 F 97 18 149/77 H 97 08/05/18 11:17 08/05/18 11:17 08/05/18 11:17 08/05/18 11:17 08/05/18 11:17 Intake & Output 08/04/18 08/05/18 08/06/18 06:59 06:59 06:59 Intake Total 577 1700 360 Output Total 1950 1200 0 Balance -1373 500 360 Weight 73.7 kg 74.7 kg General appearance: PRESENT: no acute distress Eye exam: PRESENT: conjunctiva pink Respiratory exam: PRESENT: clear to auscultation jose. ABSENT: rales, rhonchi, wheezes Cardiovascular exam: PRESENT: RRR. ABSENT: diastolic murmur, rubs, systolic murmur GI/Abdominal exam: PRESENT: normal bowel sounds, soft. ABSENT: distended, guarding, mass, organolmegaly, rebound, tenderness Neurological exam: PRESENT: alert, awake Results Laboratory Results: 07/30/18 07:09 08/04/18 06:12 07/31/18 12:02 Blood Blood Culture - Final NO GROWTH IN 5 DAYS 08/01/18 12:30 Stool - Stool - Final 08/01/18 12:30 Stool - Stool Stool Culture - Final NO SALMONELLA, SHIGELLA, CAMPYLOBACTER, OR E.COLI 0157 RECOVERED. NEGATIVE FOR SHIGA TOXINS 1&2. 07/29/18 11:47 Troponin I < 0.012 Impressions: Abdomen/Pelvis CT 07/29/18 11:42 IMPRESSION: Fatty liver Gallstones Peripancreatic retroperitoneal inflammation, question pancreatitis Cervical Spine CT 07/29/18 11:42 IMPRESSION: CHRONIC DEGENERATIVE CHANGES. NO ACUTE FINDINGS. Similar left thyroid nodule with calcifications. Chest CT 07/29/18 11:42 IMPRESSION: No acute changes Head CT 07/29/18 11:42 IMPRESSION: No acute intracranial findings. EVIDENCE OF ACUTE STROKE: NO. Assessment & Plan - Diagnosis (1) Elevated liver chemistry Is this a current diagnosis for this admission?: Yes Plan: Trended down markedly (2) Clostridium difficile colitis Is this a current diagnosis for this admission?: Yes Plan: Patient has been started on Flagyl and vancomycin. (3) Hypokalemia Is this a current diagnosis for this admission?: Yes Plan: Improving (4) Acute pancreatitis Qualifiers: Pancreatitis type: alcohol induced Is this a current diagnosis for this admission?: Yes Plan: Her lipase trended down markedly (5) Suicide attempt Is this a current diagnosis for this admission?: Yes Plan: Patient denies she is suicidal. Had been evaluated by psych and she is clipped. (6) Alcoholism /alcohol abuse Is this a current diagnosis for this admission?: Yes Plan: Patient advised to remain sober.
[2018-08-05] MEDS: ROPINIROLE HCL 1 MG TABLET PO SCH (21:19)
[2018-08-05] MEDS: QUETIAPINE FUMARATE 25 MG TABLET PO SCH (21:23)
[2018-08-06] MEDS: LORAZEPAM INJ 2 MG/1 ML VIAL IV PRN ×3 (00:38→14:35)
[2018-08-06] MEDS: DIAZEPAM 5 MG TABLET PO SCH ×3 (06:00→18:26)
[2018-08-06] MEDS: METRONIDAZOLE 500 MG TABLET PO SCH ×3 (06:01→18:26)
[2018-08-06] MEDS: THIAMINE HCL 100 MG TABLET PO SCH ×3 (06:01→21:41)
[2018-08-06] MEDS: VANCOMYCIN HCL INJ 500 MG VIAL PO SCH ×3 (06:02→18:27)
[2018-08-06] MEDS: HEPARIN SOD (PORCINE) 5,000 UNIT/ML 1 ML SYRINGE SUBCUT SCH ×3 (06:02→21:41)
[2018-08-06] MEDS: NICOTINE 21 MG/24 HR PATCH.TD24 TD SCH (09:40)
[2018-08-06] MEDS: OLANZAPINE 5 MG TABLET PO SCH ×2 (09:41→18:26)
[2018-08-06] MEDS: BENZTROPINE MESYLATE 1 MG TABLET PO SCH (09:41)
[2018-08-06] MEDS: BUSPIRONE HCL 10 MG TABLET PO SCH ×2 (09:41→18:26)
[2018-08-06] MEDS: DULOXETINE HCL 30 MG CAPSULE.DR PO SCH ×2 (09:41→18:26)
[2018-08-06] MEDS: PROPRANOLOL HCL 20 MG TABLET PO SCH ×2 (09:41→21:38)
[2018-08-06] MEDS: HYDROXYZINE PAMOATE 25 MG CAPSULE PO SCH ×4 (09:41→21:41)
[2018-08-06] MEDS: AMLODIPINE BESYLATE 10 MG TABLET PO SCH (09:41)
--- NOTE | 2018-08-06 10:52 | PDOC PROGRESS REPORT ---
Subjective Progress Note for:: 08/06/18 Subjective:: I seen patient sleeping quietly. Reportedly patient still confused. Her diarrhea has subsided. PT recommended nursing home facility placement. Reason For Visit: PANCREATITIS, ETOH INTOXICATION Physical Exam Vital Signs: Temp Pulse Resp BP Pulse Ox 98.0 F 83 16 153/75 H 99 08/06/18 07:42 08/06/18 07:42 08/06/18 04:07 08/06/18 07:42 08/06/18 07:42 Intake & Output 08/05/18 08/06/18 08/07/18 06:59 06:59 06:59 Intake Total 1700 1060 Output Total 1200 1550 Balance 500 -490 Weight 74.7 kg 68.1 kg General appearance: PRESENT: no acute distress Eye exam: PRESENT: conjunctiva pink Neck exam: ABSENT: carotid bruit, JVD, lymphadenopathy, thyromegaly Respiratory exam: PRESENT: clear to auscultation jose. ABSENT: rales, rhonchi, wheezes Cardiovascular exam: PRESENT: RRR. ABSENT: diastolic murmur, rubs, systolic murmur GI/Abdominal exam: PRESENT: normal bowel sounds, soft. ABSENT: distended, guarding, mass, organolmegaly, rebound, tenderness Results Laboratory Results: 07/30/18 07:09 08/04/18 06:12 07/31/18 13:25 Blood Blood Culture - Final NO GROWTH IN 5 DAYS 07/31/18 12:02 Blood Blood Culture - Final NO GROWTH IN 5 DAYS 07/29/18 11:47 Troponin I < 0.012 Impressions: Abdomen/Pelvis CT 07/29/18 11:42 IMPRESSION: Fatty liver Gallstones Peripancreatic retroperitoneal inflammation, question pancreatitis Cervical Spine CT 07/29/18 11:42 IMPRESSION: CHRONIC DEGENERATIVE CHANGES. NO ACUTE FINDINGS. Similar left thyroid nodule with calcifications. Chest CT 07/29/18 11:42 IMPRESSION: No acute changes Head CT 07/29/18 11:42 IMPRESSION: No acute intracranial findings. EVIDENCE OF ACUTE STROKE: NO. Assessment & Plan - Diagnosis (1) Elevated liver chemistry Is this a current diagnosis for this admission?: Yes Plan: Improved (2) Clostridium difficile colitis Is this a current diagnosis for this admission?: Yes Plan: Patient has been started on Flagyl and vancomycin. (3) Hypokalemia Is this a current diagnosis for this admission?: Yes Plan: Improving (4) Acute pancreatitis Qualifiers: Pancreatitis type: alcohol induced Is this a current diagnosis for this admission?: Yes Plan: Her lipase trended down markedly (5) Suicide attempt Is this a current diagnosis for this admission?: Yes Plan: Patient denies she is suicidal. Had been evaluated by psych and she is clipped. (6) Alcoholism /alcohol abuse Is this a current diagnosis for this admission?: Yes Plan: Patient advised to remain sober.
[2018-08-06] MEDS: NALBUPHINE HCL INJ 10 MG/1 ML AMPULE IV PRN (11:11)
[2018-08-06] MEDS: ROPINIROLE HCL 1 MG TABLET PO SCH (21:40)
[2018-08-06] MEDS: QUETIAPINE FUMARATE 25 MG TABLET PO SCH (21:41)
[2018-08-07] MEDS: VANCOMYCIN HCL INJ 500 MG VIAL PO SCH ×5 (00:11→23:06)
[2018-08-07] MEDS: DIAZEPAM 5 MG TABLET PO SCH ×5 (00:12→23:05)
[2018-08-07] MEDS: METRONIDAZOLE 500 MG TABLET PO SCH ×5 (00:12→23:06)
[2018-08-07] MEDS: ACETAMINOPHEN 325 MG TABLET PO PRN (03:11)
[2018-08-07] MEDS: THIAMINE HCL 100 MG TABLET PO SCH ×3 (05:06→22:24)
[2018-08-07] MEDS: HEPARIN SOD (PORCINE) 5,000 UNIT/ML 1 ML SYRINGE SUBCUT SCH ×3 (05:07→22:10)
[2018-08-07 05:42] LABS: ANION GAP 9 (5-19); BLOOD UREA NITROGEN 5 mg/dL (7-20); CALCIUM 9.6 mg/dL (8.4-10.2); CARBON DIOXIDE 32 mmol/L (22-30); CHLORIDE 98 mmol/L (98-107); GLUCOSE 137 mg/dL (75-110); LIPASE 457.8 U/L (23-300); POTASSIUM 3.6 mmol/L (3.6-5.0); SODIUM 138.8 mmol/L (137-145)
[2018-08-07] MEDS: LORAZEPAM INJ 2 MG/1 ML VIAL IV PRN (08:26)
[2018-08-07] MEDS ORDERED: ROPINIROLE HCL 1 MG TABLET PO ONE ×2 (08:28→10:00)
[2018-08-07] MEDS: HYDROXYZINE PAMOATE 25 MG CAPSULE PO SCH ×4 (09:49→22:19)
[2018-08-07] MEDS: AMLODIPINE BESYLATE 10 MG TABLET PO SCH (09:49)
[2018-08-07] MEDS: DULOXETINE HCL 30 MG CAPSULE.DR PO SCH ×2 (09:49→18:30)
[2018-08-07] MEDS: BENZTROPINE MESYLATE 1 MG TABLET PO SCH (09:49)
[2018-08-07] MEDS: OLANZAPINE 5 MG TABLET PO SCH ×2 (09:49→18:31)
[2018-08-07] MEDS: BUSPIRONE HCL 10 MG TABLET PO SCH ×2 (09:49→18:30)
[2018-08-07] MEDS: NICOTINE 21 MG/24 HR PATCH.TD24 TD SCH (09:50)
[2018-08-07] MEDS: PROPRANOLOL HCL 20 MG TABLET PO SCH ×2 (09:50→22:19)
[2018-08-07] MEDS: GABAPENTIN 400 MG CAPSULE PO SCH ×3 (09:51→22:19)
--- NOTE | 2018-08-07 10:33 | PDOC PROGRESS REPORT ---
Subjective Progress Note for:: 08/07/18 Subjective:: Patient seen awake alert and conversant. She complains of restless leg syndrome and she requested to increase the frequency of her Requip from once a day to twice a day. Her diarrhea has subsided. Patient is severely deconditioned. She may benefit short-term acute rehab. Physical therapy recommended SNF placement Reason For Visit: PANCREATITIS, ETOH INTOXICATION Physical Exam Vital Signs: Temp Pulse Resp BP Pulse Ox 99.0 F 79 14 137/74 H 97 08/07/18 07:17 08/07/18 07:17 08/07/18 07:17 08/07/18 07:17 08/07/18 07:17 Intake & Output 08/06/18 08/07/18 08/08/18 06:59 06:59 06:59 Intake Total 1060 1000 Output Total 1550 600 Balance -490 400 Weight 68.1 kg 67.5 kg General appearance: PRESENT: no acute distress Eye exam: PRESENT: conjunctiva pink Mouth exam: PRESENT: moist Neck exam: ABSENT: carotid bruit, JVD, lymphadenopathy, thyromegaly Respiratory exam: PRESENT: clear to auscultation jose. ABSENT: rales, rhonchi, wheezes Cardiovascular exam: PRESENT: RRR. ABSENT: diastolic murmur, rubs, systolic murmur GI/Abdominal exam: PRESENT: normal bowel sounds, soft. ABSENT: distended, guarding, mass, organolmegaly, rebound, tenderness Neurological exam: PRESENT: alert, awake Results Laboratory Results: 07/30/18 07:09 08/07/18 05:07 08/07/18 05:07 Sodium 138.8 Potassium 3.6 Chloride 98 Carbon Dioxide 32 H Anion Gap 9 BUN 5 L Creatinine 0.51 L Est GFR ( Amer) > 60 Est GFR (Non-Af Amer) > 60 Glucose 137 H Calcium 9.6 Lipase 457.8 H 07/29/18 11:47 Troponin I < 0.012 Impressions: Abdomen/Pelvis CT 07/29/18 11:42 IMPRESSION: Fatty liver Gallstones Peripancreatic retroperitoneal inflammation, question pancreatitis Cervical Spine CT 07/29/18 11:42 IMPRESSION: CHRONIC DEGENERATIVE CHANGES. NO ACUTE FINDINGS. Similar left thy roid nodule with calcifications. Chest CT 07/29/18 11:42 IMPRESSION: No acute changes Head CT 07/29/18 11:42 IMPRESSION: No acute intracranial findings. EVIDENCE OF ACUTE STROKE: NO. Assessment & Plan - Diagnosis (1) Elevated liver chemistry Is this a current diagnosis for this admission?: Yes Plan: Resolved (2) Clostridium difficile colitis Is this a current diagnosis for this admission?: Yes Plan: Improving (3) Hypokalemia Is this a current diagnosis for this admission?: Yes Plan: Improving (4) Acute pancreatitis Qualifiers: Pancreatitis type: alcohol induced Is this a current diagnosis for this admission?: Yes Plan: Her lipase trended down markedly her latest lipase is 457.8 (5) Suicide attempt Is this a current diagnosis for this admission?: Yes Plan: Patient denies she is suicidal. Had been evaluated by psych and she is clipped. (6) Alcoholism /alcohol abuse Is this a current diagnosis for this admission?: Yes Plan: Patient advised to remain sober.
[2018-08-07] MEDS: NALBUPHINE HCL INJ 10 MG/1 ML AMPULE IV PRN (11:16)
[2018-08-07] MEDS ORDERED: ROPINIROLE HCL 1 MG TABLET PO SCH (22:00)
[2018-08-07] MEDS: ROPINIROLE HCL 1 MG TABLET PO SCH ×2 (22:19→22:20)
[2018-08-07] MEDS: QUETIAPINE FUMARATE 25 MG TABLET PO SCH (22:23)
[2018-08-08] MEDS: METRONIDAZOLE 500 MG TABLET PO SCH ×2 (05:38→12:08)
[2018-08-08] MEDS: THIAMINE HCL 100 MG TABLET PO SCH ×3 (05:38→21:17)
[2018-08-08] MEDS: VANCOMYCIN HCL INJ 500 MG VIAL PO SCH ×2 (05:38→12:08)
[2018-08-08] MEDS: DIAZEPAM 5 MG TABLET PO SCH ×4 (05:38→23:20)
[2018-08-08] MEDS: GABAPENTIN 400 MG CAPSULE PO SCH ×3 (05:39→21:18)
[2018-08-08] MEDS: HEPARIN SOD (PORCINE) 5,000 UNIT/ML 1 ML SYRINGE SUBCUT SCH ×3 (05:39→21:14)
[2018-08-08] MEDS: LORAZEPAM INJ 2 MG/1 ML VIAL IV PRN (08:34)
[2018-08-08] MEDS: ROPINIROLE HCL 1 MG TABLET PO SCH ×3 (10:01→21:18)
[2018-08-08] MEDS: BENZTROPINE MESYLATE 1 MG TABLET PO SCH (10:01)
[2018-08-08] MEDS: AMLODIPINE BESYLATE 10 MG TABLET PO SCH (10:01)
[2018-08-08] MEDS: DULOXETINE HCL 30 MG CAPSULE.DR PO SCH ×2 (10:01→17:44)
[2018-08-08] MEDS: BUSPIRONE HCL 10 MG TABLET PO SCH ×2 (10:01→17:44)
[2018-08-08] MEDS: OLANZAPINE 5 MG TABLET PO SCH ×2 (10:01→17:44)
[2018-08-08] MEDS: HYDROXYZINE PAMOATE 25 MG CAPSULE PO SCH ×4 (10:01→21:18)
[2018-08-08] MEDS: NICOTINE 21 MG/24 HR PATCH.TD24 TD SCH (10:01)
[2018-08-08] MEDS: PROPRANOLOL HCL 20 MG TABLET PO SCH ×2 (10:01→21:18)
--- NOTE | 2018-08-08 10:52 | PDOC PROGRESS REPORT ---
Subjective Subjective:: This is a 57 years old female patient with past medical history of depression and alcohol abuse brought by EMS for being suicide. Her initial blood work shows markedly elevated lipase of 9352 she has also elevated liver chemistry no both values has remarkably improved. Patient able to eat and tolerate well. Her BMP shows hypokalemia with potassium of 2.7 which is replaced now it is 3.6. Admission patient also found to have very foul-smelling diarrhea and her stool test is positive for C. difficile colitis and she has been managed with p.o. Flagyl and vancomycin. Now her diarrhea has subsided now that she is constipated. Patient evaluated by PT who recommended SNF placement. Reason For Visit: PANCREATITIS, ETOH INTOXICATION Physical Exam Vital Signs: Temp Pulse Resp BP Pulse Ox 98.2 F 92 14 136/72 H 95 08/08/18 04:30 08/08/18 07:59 08/08/18 07:59 08/08/18 07:59 08/08/18 07:59 Intake & Output 08/07/18 08/08/18 08/09/18 06:59 06:59 06:59 Intake Total 1000 1147 Output Total 600 950 Balance 400 197 Weight 67.5 kg 67.5 kg General appearance: PRESENT: no acute distress Eye exam: PRESENT: conjunctiva pink Mouth exam: PRESENT: moist Neck exam: ABSENT: carotid bruit, JVD, lymphadenopathy, thyromegaly Cardiovascular exam: PRESENT: RRR. ABSENT: diastolic murmur, rubs, systolic murmur GI/Abdominal exam: PRESENT: normal bowel sounds, soft. ABSENT: distended, guarding, mass, organolmegaly, rebound, tenderness Neurological exam: PRESENT: alert, awake Results Laboratory Results: 07/30/18 07:09 08/07/18 05:07 07/29/18 11:47 Troponin I < 0.012 Impressions: Abdomen/Pelvis CT 07/29/18 11:42 IMPRESSION: Fatty liver Gallstones Peripancreatic retroperitoneal inflammation, question pancreatitis Cervical Spine CT 07/29/18 11:42 IMPRESSION: CHRONIC DEGENERATIVE CHANGES. NO ACUTE FINDINGS. Similar left thyroid nodule with calcifications. Chest CT 07/29/18 11:42 IMPRESSION: No acute changes Head CT 07/29/18 11:42 IMPRESSION: No acute intracranial findings. EVIDENCE OF ACUTE STROKE: NO. Assessment & Plan - Diagnosis (1) Intermittent altered mental status Is this a current diagnosis for this admission?: Yes Plan: Most probably related to her underlying psychiatric disorder and alcohol withdrawal. She is on Ativan and diazepam. (2) Elevated liver chemistry Is this a current diagnosis for this admission?: Yes (3) Clostridium difficile colitis Is this a current diagnosis for this admission?: Yes (4) Hypokalemia Is this a current diagnosis for this admission?: Yes (5) Acute pancreatitis Qualifiers: Pancreatitis type: alcohol induced Is this a current diagnosis for this admission?: Yes (6) Suicide attempt Is this a current diagnosis for this admission?: Yes (7) Alcoholism /alcohol abuse Is this a current diagnosis for this admission?: Yes
[2018-08-08] MEDS: ACETAMINOPHEN 325 MG TABLET PO PRN (21:17)
[2018-08-08] MEDS: QUETIAPINE FUMARATE 25 MG TABLET PO SCH (21:17)
[2018-08-08] MEDS ORDERED: DIAZEPAM 5 MG TABLET ONE (23:25)
[2018-08-09] MEDS: HEPARIN SOD (PORCINE) 5,000 UNIT/ML 1 ML SYRINGE SUBCUT SCH ×3 (05:04→21:21)
[2018-08-09] MEDS: DIAZEPAM 5 MG TABLET PO SCH ×4 (05:15→23:40)
[2018-08-09] MEDS: GABAPENTIN 400 MG CAPSULE PO SCH ×3 (05:15→21:21)
[2018-08-09] MEDS: THIAMINE HCL 100 MG TABLET PO SCH ×3 (05:15→23:06)
[2018-08-09] MEDS: NICOTINE 21 MG/24 HR PATCH.TD24 TD SCH (09:55)
[2018-08-09] MEDS: ROPINIROLE HCL 1 MG TABLET PO SCH ×2 (09:58→21:21)
[2018-08-09] MEDS: BENZTROPINE MESYLATE 1 MG TABLET PO SCH (09:58)
[2018-08-09] MEDS: AMLODIPINE BESYLATE 10 MG TABLET PO SCH (09:58)
[2018-08-09] MEDS: BUSPIRONE HCL 10 MG TABLET PO SCH ×2 (09:58→17:21)
[2018-08-09] MEDS: DULOXETINE HCL 30 MG CAPSULE.DR PO SCH ×2 (09:58→17:21)
[2018-08-09] MEDS: PROPRANOLOL HCL 20 MG TABLET PO SCH ×2 (09:59→21:21)
[2018-08-09] MEDS: OLANZAPINE 5 MG TABLET PO SCH ×2 (09:59→17:21)
[2018-08-09] MEDS: HYDROXYZINE PAMOATE 25 MG CAPSULE PO SCH ×4 (09:59→21:21)
[2018-08-09] MEDS ORDERED: BISACODYL 10 MG SUPP.RECT PR PRN (14:17)
--- NOTE | 2018-08-09 14:37 | PDOC PROGRESS REPORT ---
Subjective Progress Note for:: 08/09/18 Subjective:: 57 years old female patient with past medical history of depression and alcohol abuse brought by EMS for being suicide. Her initial blood work shows markedly elevated lipase of 9352 she has also elevated liver chemistry no both values has remarkably improved. Patient able to eat and tolerate well. Her BMP shows hypokalemia with potassium of 2.7 which is replaced now it is 3.6. Admission patient also found to have very foul-smelling diarrhea and her stool test is positive for C. difficile colitis and she has been managed with p.o. Flagyl and vancomycin. Now her diarrhea has subsided now that she is constipated. Patient evaluated by PT who recommended SNF placement. 08/09/2018-I had a long discussion with the patient's daughter and the she re ally thinks patient has hallucinations on daily bais/ having the suicidal thoughts and ideations she thinks she is unsafe for her mom to be discharged she wants this psychiatric team to come and evaluate her mom but I spoke to the 1 of the staff from the psychiatric team they told me that patient is cleared no need for further follow-up and I was also notified that patient does not qualify for inpatient psych rehab. May be the hospital administration will help in arranging a meeting with the psychiatric team and the patient's daughter so they can come to a understandable plan and management. Nurse is telling me patient is constipated requesting suppositories and was to start on mechanical soft diet agreed with the request. Nurse called me just now to notify me that patient is agitated and anxious combative requesting soft restraints. Reason For Visit: PANCREATITIS, ETOH INTOXICATION Physical Exam Vital Signs: Temp Pulse Resp BP Pulse Ox 98.0 F 82 20 124/69 97 08/09/18 11:38 08/09/18 14:00 08/09/18 11:38 08/09/18 11:38 08/09/18 11:38 Intake & Output 08/08/18 08/09/18 08/10/18 06:59 06:59 06:59 Intake Total 1147 1403 474 Output Total 950 800 550 Balance 197 603 -76 Weight 67.5 kg 67 kg General appearance: PRESENT: mild distress Head exam: PRESENT: atraumatic Eye exam: PRESENT: PERRLA Mouth exam: PRESENT: moist, tongue midline Neck exam: ABSENT: carotid bruit, JVD, lymphadenopathy, thyromegaly Respiratory exam: PRESENT: decreased breath sounds Cardiovascular exam: PRESENT: tachycardia GI/Abdominal exam: PRESENT: normal bowel sounds, soft. ABSENT: distended, guarding, mass, organolmegaly, rebound, tenderness Extremities exam: PRESENT: full ROM. ABSENT: calf tenderness, clubbing, pedal edema Neurological exam: PRESENT: alert, awake, CN II-XII grossly intact Psychiatric exam: PRESENT: agitated, anxious Results Laboratory Results: 07/30/18 07:09 08/07/18 05:07 07/29/18 11:47 Troponin I < 0.012 Impressions: Abdomen/Pelvis CT 07/29/18 11:42 IMPRESSION: Fatty liver Gallstones Peripancreatic retroperitoneal inflammation, question pancreatitis Cervical Spine CT 07/29/18 11:42 IMPRESSION: CHRONIC DEGENERATIVE CHANGES. NO ACUTE FINDINGS. Similar left thyroid nodule with calcifications. Chest CT 07/29/18 11:42 IMPRESSION: No acute changes Head CT 07/29/18 11:42 IMPRESSION: No acute intracranial findings. EVIDENCE OF ACUTE STROKE: NO. Assessment and Plan - Diagnosis (1) Intermittent altered mental status Is this a current diagnosis for this admission?: Yes Plan: Most probably related to her underlying psychiatric disorder and alcohol withdrawal. She is on Ativan and diazepam. 08/09/2018-patient was agitated and anxious today not cooperative and combative going to put her on a soft restraints. Altered mental status probably secondary to underlying psychiatric disorders. Patient is presently on IV Ativan and po diazepam. Patient's home medications are restarted today. (2) Elevated liver chemistry Is this a current diagnosis for this admission?: Yes Plan: 08/09/18 14:34 Patient is admitted with elevated liver enzymes the gradually coming back to normal. It is most likely secondary to alcoholic liver disease. (3) Clostridium difficile colitis Is this a current diagnosis for this admission?: Yes Plan: 08/09/18 14:35 Patient was admitted with C. difficile colitis and a severe diarrhea stool culture is positive for C. difficile now she is severely constipated to start her on Dulcolax suppositories p.o. vancomycin was discontinued. (4) Acute pancreatitis Qualifiers: Pancreatitis type: alcohol induced Is this a current diagnosis for this admission?: Yes Plan: 08/09/18 14:36 08/09/2018 patient is admitted with acute pancreatitis most likely secondary to chronic alcohol abuse. (5) Suicide attempt Is this a current diagnosis for this admission?: Yes Plan: 08/09/18 14:36 08/09/2018 patient admitted with suicidal ideation and attempt patient is cleared by psychiatric team. - Time Time Spent with patient: 15-24 minutes Smoking Cessation Education: over 10 minutes Medications reviewed and adjusted accordingly: Yes Anticipated discharge: Home
[2018-08-09] MEDS: QUETIAPINE FUMARATE 25 MG TABLET PO SCH (23:06)
[2018-08-10] MEDS: LORAZEPAM INJ 2 MG/1 ML VIAL IV PRN ×3 (00:30→10:45)
[2018-08-10] MEDS: HEPARIN SOD (PORCINE) 5,000 UNIT/ML 1 ML SYRINGE SUBCUT SCH ×3 (05:26→21:30)
[2018-08-10] MEDS: THIAMINE HCL 100 MG TABLET PO SCH ×3 (05:54→21:29)
[2018-08-10] MEDS: GABAPENTIN 400 MG CAPSULE PO SCH ×3 (05:54→21:29)
[2018-08-10] MEDS: DIAZEPAM 5 MG TABLET PO SCH ×4 (05:55→23:17)
[2018-08-10 07:12] LABS: ALANINE AMINOTRANSFERASE 25 U/L (9-52); ALBUMIN 3.2 g/dL (3.5-5.0); ALKALINE PHOSPHATASE 116 U/L (38-126); ANION GAP 11 (5-19); ASPARTATE AMINO TRANSFERASE 39 U/L (14-36); BILIRUBIN,DIRECT 0.4 mg/dL (0.0-0.4); BILIRUBIN,TOTAL 0.4 mg/dL (0.2-1.3); BLOOD UREA NITROGEN 6 mg/dL (7-20); CALCIUM 9.6 mg/dL (8.4-10.2); CARBON DIOXIDE 27 mmol/L (22-30); CHLORIDE 101 mmol/L (98-107); GLUCOSE 122 mg/dL (75-110); POTASSIUM 4.2 mmol/L (3.6-5.0); SODIUM 138.9 mmol/L (137-145); TOTAL PROTEIN 6.4 g/dL (6.3-8.2)
[2018-08-10 08:43] LABS: ABSOLUTE BASOPHILS # (AUTO) 0.1 10^3/uL (0.0-0.2); ABSOLUTE EOSINOPHILS # (AUTO) 0.1 10^3/uL (0.0-0.6); ABSOLUTE LYMPHOCYTES (AUTO) 1.3 10^3/uL (0.5-4.7); ABSOLUTE MONOCYTES (AUTO) 0.8 10^3/uL (0.1-1.4); ABSOLUTE NEUT (AUTO) 3.9 10^3/uL (1.7-8.2); BASOPHILS % (AUTO) 1.3 % (0-2); EOSINOPHILS % (AUTO) 1.8 % (0-6); HEMATOCRIT 35.7 % (36.0-47.0); HEMOGLOBIN 12.1 g/dL (12.0-15.5); LYMPHOCYTES % (AUTO) 21.1 % (13-45); MEAN CORPUSCULAR HEMOGLOBIN 30.8 pg (27.0-33.4); MEAN CORPUSCULAR HGB CONC 33.9 g/dL (32.0-36.0); PLATELET COUNT 461 10^3/uL (150-450); RED BLOOD COUNT 3.94 10^6/uL (3.72-5.28); RED CELL DISTRIBUTION WIDTH 15.5 % (11.5-14.0); SEGMENTED NEUTROPHILS % (AUTO) 62.8 % (42-78); TOTAL CELLS COUNTED % (AUTO) 100 %; WHITE BLOOD COUNT 6.3 10^3/uL (4.0-10.5)
[2018-08-10 08:44] LABS: MEAN CORPUSCULAR VOLUME 91 fl (80-97)
[2018-08-10] MEDS ORDERED: GABAPENTIN 300 MG CAPSULE PO SCH (10:00)
[2018-08-10] MEDS: OLANZAPINE 5 MG TABLET PO SCH ×2 (10:19→18:33)
[2018-08-10] MEDS: ROPINIROLE HCL 1 MG TABLET PO SCH ×2 (10:19→21:29)
[2018-08-10] MEDS: DULOXETINE HCL 30 MG CAPSULE.DR PO SCH ×2 (10:19→18:33)
[2018-08-10] MEDS: HYDROXYZINE PAMOATE 25 MG CAPSULE PO SCH ×4 (10:19→21:29)
[2018-08-10] MEDS: AMLODIPINE BESYLATE 10 MG TABLET PO SCH (10:19)
[2018-08-10] MEDS: PROPRANOLOL HCL 20 MG TABLET PO SCH ×2 (10:19→21:29)
[2018-08-10] MEDS: NICOTINE 21 MG/24 HR PATCH.TD24 TD SCH (10:19)
[2018-08-10] MEDS: BENZTROPINE MESYLATE 1 MG TABLET PO SCH (10:19)
[2018-08-10] MEDS: BUSPIRONE HCL 10 MG TABLET PO SCH ×2 (10:19→18:33)
--- NOTE | 2018-08-10 13:50 | PDOC PROGRESS REPORT ---
Subjective Progress Note for:: 08/10/18 Subjective:: 57 years old female patient with past medical history of depression and alcohol abuse brought by EMS for being suicide. Her initial blood work shows markedly elevated lipase of 9352 she has also elevated liver chemistry no both values has remarkably improved. Patient able to eat and tolerate well. Her BMP shows hypokalemia with potassium of 2.7 which is replaced now it is 3.6. Admission patient also found to have very foul-smelling diarrhea and her stool test is positive for C. difficile colitis and she has been managed with p.o. Flagyl and vancomycin. Now her diarrhea has subsided now that she is constipated. Patient evaluated by PT who recommended SNF placement. 08/09/2018-I had a long discussion with the patient's daughter and the she re ally thinks patient has hallucinations on daily bais/ having the suicidal thoughts and ideations she thinks she is unsafe for her mom to be discharged she wants this psychiatric team to come and evaluate her mom but I spoke to the 1 of the staff from the psychiatric team they told me that patient is cleared no need for further follow-up and I was also notified that patient does not qualify for inpatient psych rehab. May be the hospital administration will help in arranging a meeting with the psychiatric team and the patient's daughter so they can come to a understandable plan and management. Nurse is telling me patient is constipated requesting suppositories and was to start on mechanical soft diet agreed with the request. Nurse called me just now to notify me that patient is agitated and anxious combative requesting soft restraints. 08/10/2018-no acute events in the last 24 hours. Patient is afebrile. Patient had fluctuation in the moods. I spoke to patient's daughter Tracy she want her mom to go to AA long-term care facility and she is not in a situation to take care of her mom at home. But the patient is insisting that she is going home she is not going to a long-term care facility. The daughter and psychiatric team going to meet today to evaluate the plan of care. Reason For Visit: PANCREATITIS, ETOH INTOXICATION Physical Exam Vital Signs: Temp Pulse Resp BP Pulse Ox 98.1 F 83 18 129/66 H 95 08/10/18 11:24 08/10/18 11:24 08/10/18 11:24 08/10/18 11:24 08/10/18 11:24 Intake & Output 08/09/18 08/10/18 08/11/18 06:59 06:59 06:59 Intake Total 1403 1001 Output Total 800 1705 650 Balance 084 -426 -140 Weight 67 kg 68.6 kg General appearance: PRESENT: no acute distress Head exam: PRESENT: atraumatic Eye exam: PRESENT: PERRLA Mouth exam: PRESENT: moist, tongue midline Neck exam: ABSENT: carotid bruit, JVD, lymphadenopathy, thyromegaly Respiratory exam: PRESENT: decreased breath sounds Cardiovascular exam: PRESENT: tachycardia GI/Abdominal exam: PRESENT: normal bowel sounds, soft. ABSENT: distended, guarding, mass, organolmegaly, rebound, tenderness Extremities exam: PRESENT: full ROM. ABSENT: calf tenderness, clubbing, pedal edema Neurological exam: PRESENT: alert, awake, oriented to person, oriented to place, oriented to time, oriented to situation, CN II-XII grossly intact. ABSENT: motor sensory deficit Psychiatric exam: PRESENT: appropriate affect, normal mood. ABSENT: homicidal ideation, suicidal ideation Results Laboratory Results: 08/10/18 08:10 08/10/18 05:51 08/09/18 08/10/18 08/10/18 19:21 05:51 05:51 WBC Cancelled RBC Cancelled Hgb Cancelled Hct Cancelled MCV Cancelled MCH Cancelled MCHC Cancelled RDW Cancelled Plt Count Cancelled Seg Neutrophils % Cancelled Lymphocytes % Cancelled Monocytes % Cancelled Eosinophils % Cancelled Basophils % Cancelled Absolute Neutrophils Cancelled Absolute Lymphocytes Cancelled Absolute Monocytes Cancelled Absolute Eosinophils Cancelled Absolute Basophils Cancelled Sodium 138.9 Potassium 4.2 Chloride 101 Carbon Dioxide 27 Anion Gap 11 BUN 6 L Creatinine 0.50 L Est GFR ( Amer) > 60 Est GFR (Non-Af Amer) > 60 Glucose 122 H Calcium 9.6 Magnesium 1.9 Total Bilirubin 0.4 AST 39 H ALT 25 Alkaline Phosphatase 116 Total Protein 6.4 Albumin 3.2 L Lipase 279.8 08/10/18 08:10 WBC 6.3 RBC 3.94 Hgb 12.1 Hct 35.7 L MCV 91 D MCH 30.8 MCHC 33.9 RDW 15.5 H Plt Count 461 H Seg Neutrophils % 62.8 Lymphocytes % 21.1 Monocytes % 13.0 Eosinophils % 1.8 Basophils % 1.3 Absolute Neutrophils 3.9 Absolute Lymphocytes 1.3 Absolute Monocytes 0.8 Absolute Eosinophils 0.1 Absolute Basophils 0.1 Sodium Potassium Chloride Carbon Dioxide Anion Gap BUN Creatinine Est GFR ( Amer) Est GFR (Non-Af Amer) Glucose Calcium Magnesium Total Bilirubin AST ALT Alkaline Phosphatase Total Protein Albumin Lipase 07/29/18 11:47 Troponin I < 0.012 Impressions: Abdomen/Pelvis CT 07/29/18 11:42 IMPRESSION: Fatty liver Gallstones Peripancreatic retroperitoneal inflammation, question pancreatitis Cervical Spine CT 07/29/18 11:42 IMPRESSION: CHRONIC DEGENERATIVE CHANGES. NO ACUTE FINDINGS. Similar left thyroid nodule with calcifications. Chest CT 07/29/18 11:42 IMPRESSION: No acute changes Head CT 07/29/18 11:42 IMPRESSION: No acute intracranial findings. EVIDENCE OF ACUTE STROKE: NO. Assessment and Plan - Diagnosis (1) Intermittent altered mental status Is this a current diagnosis for this admission?: Yes Plan: Most probably related to her underlying psychiatric disorder and alcohol withdrawal. She is on Ativan and diazepam. 08/09/2018-patient was agitated and anxious today not cooperative and combative going to put her on a soft restraints. Altered mental status probably secondary to underlying psychiatric disorders. Patient is presently on IV Ativan and po diazepam. Patient's home medications are restarted today. 08/10/2018-patient has fluctuation in the mood most likely secondary to underlying psychiatric disorders psych is going to reevaluate her today and they have plans to sit down and discuss the care with patient's daughter today. The meantime will continue the present management. (2) Elevated liver chemistry Is this a current diagnosis for this admission?: Yes Plan: 08/09/18 14:34 Patient is admitted with elevated liver enzymes the gradually coming back to normal. It is most likely secondary to alcoholic liver disease. 08/10/2018-patient was admitted with elevated liver enzymes the progressively coming towards normal. Today AST is 39 slightly elevated, ALT is 25 normal, alkaline phosphatase is 160 normal. Elevated liver enzymes probably acute insul t on the liver secondary to alcohol abuse. (3) Clostridium difficile colitis Is this a current diagnosis for this admission?: Yes Plan: 08/09/18 14:35 Patient was admitted with C. difficile colitis and a severe diarrhea stool cul ture is positive for C. difficile now she is severely constipated to start her on Dulcolax suppositories p.o. vancomycin was discontinued. 08/10/2018-patient was admitted with C. difficile colitis. C. difficile was positive. Diarrhea resolved. She has not had any bowel movement for the last 2 days. She still on contact isolation until repeat stool cultures are negative for C. difficile. She is off p.o. vancomycin. (4) Acute pancreatitis Qualifiers: Pancreatitis type: alcohol induced Is this a current diagnosis for this admission?: Yes Plan: 08/09/18 14:36 08/09/2018 patient is admitted with acute pancreatitis most likely secondary to chronic alcohol abuse. 08/10/2018-patient was admitted with acute on chronic pancreatitis most likely secondary to chronic alcohol abuse. Latest lipase is 279. (5) Suicide attempt Is this a current diagnosis for this admission?: Yes Plan: 08/09/18 14:36 08/09/2018 patient admitted with suicidal ideation and attempt patient is cleared by psychiatric team. 08/10/2018-patient is still having the mood swings and hallucinations. Denies any suicidal thoughts and ideations. - Time Time Spent with patient: 15-24 minutes Smoking Cessation Education: over 10 minutes Medications reviewed and adjusted accordingly: Yes Anticipated discharge: SNF
[2018-08-10] MEDS: QUETIAPINE FUMARATE 25 MG TABLET PO SCH (21:30)
[2018-08-11] MEDS: HEPARIN SOD (PORCINE) 5,000 UNIT/ML 1 ML SYRINGE SUBCUT SCH ×3 (05:45→22:34)
[2018-08-11] MEDS: THIAMINE HCL 100 MG TABLET PO SCH ×3 (07:54→22:33)
[2018-08-11] MEDS: DIAZEPAM 5 MG TABLET PO SCH ×3 (07:54→18:07)
[2018-08-11] MEDS: LORAZEPAM INJ 2 MG/1 ML VIAL IV PRN (07:54)
[2018-08-11] MEDS: GABAPENTIN 400 MG CAPSULE PO SCH ×3 (07:55→22:33)
[2018-08-11 09:39] LABS: HEPATITIS A AB IGM Negative (Negative); HEPATITIS B CORE AB IGM Negative (Negative); HEPATITS B SURFACE ANTIGEN Negative (Negative)
[2018-08-11] MEDS: DULOXETINE HCL 30 MG CAPSULE.DR PO SCH ×2 (09:52→18:07)
[2018-08-11] MEDS: AMLODIPINE BESYLATE 10 MG TABLET PO SCH (09:52)
[2018-08-11] MEDS: POLYETHYLENE GLYCOL 3350 POWDER 17 GM/1 PACKET PO SCH (09:52)
[2018-08-11] MEDS: BUSPIRONE HCL 10 MG TABLET PO SCH ×2 (09:52→18:07)
[2018-08-11] MEDS: NICOTINE 21 MG/24 HR PATCH.TD24 TD SCH (09:53)
[2018-08-11] MEDS: OLANZAPINE 5 MG TABLET PO SCH ×2 (09:53→18:07)
[2018-08-11] MEDS: ROPINIROLE HCL 1 MG TABLET PO SCH ×2 (09:53→22:34)
[2018-08-11] MEDS: BENZTROPINE MESYLATE 1 MG TABLET PO SCH (09:53)
[2018-08-11] MEDS: PROPRANOLOL HCL 20 MG TABLET PO SCH ×2 (09:53→22:33)
[2018-08-11] MEDS: HYDROXYZINE PAMOATE 25 MG CAPSULE PO SCH ×4 (09:53→22:33)
[2018-08-11 11:09] LABS: HEPATITIS C VIRUS ANTIBODY <0.1 s/co ratio (0.0-0.9)
--- NOTE | 2018-08-11 14:34 | PDOC PROGRESS REPORT ---
Subjective Progress Note for:: 08/11/18 Subjective:: 57 years old female patient with past medical history of depression and alcohol abuse brought by EMS for being suicide. Her initial blood work shows markedly elevated lipase of 9352 she has also elevated liver chemistry no both values has remarkably improved. Patient able to eat and tolerate well. Her BMP shows hypokalemia with potassium of 2.7 which is replaced now it is 3.6. Admission patient also found to have very foul-smelling diarrhea and her stool test is positive for C. difficile colitis and she has been managed with p.o. Flagyl and vancomycin. Now her diarrhea has subsided now that she is constipated. Patient evaluated by PT who recommended SNF placement. 08/09/2018-I had a long discussion with the patient's daughter and the she re ally thinks patient has hallucinations on daily bais/ having the suicidal thoughts and ideations she thinks she is unsafe for her mom to be discharged she wants this psychiatric team to come and evaluate her mom but I spoke to the 1 of the staff from the psychiatric team they told me that patient is cleared no need for further follow-up and I was also notified that patient does not qualify for inpatient psych rehab. May be the hospital administration will help in arranging a meeting with the psychiatric team and the patient's daughter so they can come to a understandable plan and management. Nurse is telling me patient is constipated requesting suppositories and was to start on mechanical soft diet agreed with the request. Nurse called me just now to notify me that patient is agitated and anxious combative requesting soft restraints. 08/10/2018-no acute events in the last 24 hours. Patient is afebrile. Patient had fluctuation in the moods. I spoke to patient's daughter Tracy she want her mom to go to AA long-term care facility and she is not in a situation to take care of her mom at home. But the patient is insisting that she is going home she is not going to a long-term care facility. The daughter and psychiatric team going to meet today to evaluate the plan of care. 08/11/2018-patient still agitated and confused having the occasional hallucinations. Patient is in restraints. Patient is to be off restraints at least for 24 hours for the [facility] to [facility]. So far it is not happening. No acute events in the last 24 hours. Patient is afebrile. Reason For Visit: PANCREATITIS, ETOH INTOXICATION Physical Exam Vital Signs: Temp Pulse Resp BP Pulse Ox 97.7 F 82 22 H 116/86 H 95 08/11/18 11:30 08/11/18 11:30 08/11/18 11:30 08/11/18 11:30 08/11/18 11:30 Intake & Output 08/10/18 08/11/18 08/12/18 06:59 06:59 06:59 Intake Total 1001 Output Total 1705 1075 Balance -704 -1075 Weight 68.6 kg 66.9 kg General appearance: PRESENT: mild distress, well-developed Head exam: PRESENT: atraumatic Eye exam: PRESENT: PERRLA Neck exam: ABSENT: carotid bruit, JVD, lymphadenopathy, thyromegaly Respiratory exam: PRESENT: clear to auscultation jose. ABSENT: rales, rhonchi, wheezes GI/Abdominal exam: PRESENT: normal bowel sounds, soft. ABSENT: distended, guarding, mass, organolmegaly, rebound, tenderness Extremities exam: PRESENT: full ROM. ABSENT: calf tenderness, clubbing, pedal edema Neurological exam: PRESENT: alert, awake, oriented to person, oriented to place, oriented to time, oriented to situation, CN II-XII grossly intact. ABSENT: motor sensory deficit Psychiatric exam: PRESENT: appropriate affect, normal mood. ABSENT: homicidal ideation, suicidal ideation Results Laboratory Results: 08/10/18 08:10 08/10/18 05:51 07/29/18 11:47 Troponin I < 0.012 Impressions: Abdomen/Pelvis CT 07/29/18 11:42 IMPRESSION: Fatty liver Gallstones Peripancreatic retroperitoneal inflammation, question pancreatitis Cervical Spine CT 07/29/18 11:42 IMPRESSION: CHRONIC DEGENERATIVE CHANGES. NO ACUTE FINDINGS. Similar left thyroid nodule with calcifications. Chest CT 07/29/18 11:42 IMPRESSION: No acute changes Head CT 07/29/18 11:42 IMPRESSION: No acute intracranial findings. EVIDENCE OF ACUTE STROKE: NO. Assessment and Plan - Diagnosis (1) Intermittent altered mental status Is this a current diagnosis for this admission?: Yes Plan: Most probably related to her underlying psychiatric disorder and alcohol withdrawal. She is on Ativan and diazepam. 08/09/2018-patient was agitated and anxious today not cooperative and combative going to put her on a soft restraints. Altered mental status probably secondary to underlying psychiatric disorders. Patient is presently on IV Ativan and po diazepam. Patient's home medications are restarted today. 08/10/2018-patient has fluctuation in the mood most likely secondary to underlying psychiatric disorders psych is going to reevaluate her today and they have plans to sit down and discuss the care with patient's daughter today. The meantime will continue the present management. 08/11/2018-patient has intermittent altered mental status with hallucinations agitation and anxiety. She is on soft restraints. We will try to remove the restraints this morning but patient try to come out of the bed and if she is at high risk for fall. Unfortunately we had to put the restraints back on. Psychiatric team is following the patient. (2) Elevated liver chemistry Is this a current diagnosis for this admission?: Yes Plan: 08/09/18 14:34 Patient is admitted with elevated liver enzymes the gradually coming back to normal. It is most likely secondary to alcoholic liver disease. 08/10/2018-patient was admitted with elevated liver enzymes the progressively coming towards normal. Today AST is 39 slightly elevated, ALT is 25 normal, alkaline phosphatase is 160 normal. Elevated liver enzymes probably acute insult on the liver secondary to alcohol abuse. 08/11/2018-elevated liver enzymes may be secondary to heavy alcohol use and toxic injury to the liver. Today LFTs are almost normal. (3) Clostridium difficile colitis Is this a current diagnosis for this admission?: Yes Plan: 08/09/18 14:35 Patient was admitted with C. difficile colitis and a severe diarrhea stool culture is positive for C. difficile now she is severely constipated to start her on Dulcolax suppositories p.o. vancomycin was discontinued. 08/10/2018-patient was admitted with C. difficile colitis. C. difficile was positive. Diarrhea resolved. She has not had any bowel movement for the last 2 days. She still on contact isolation until repeat stool cultures are negative for C. difficile. She is off p.o. vancomycin. 08/11/2018 patient is still on contact isolation is a C. difficile positive having the diarrhea now she is severely constipated we tried suppositories which had a lax is not helping I am going to put her on mag citrate from today. If this C. difficile is negative we will discontinue isolation. (4) Acute pancreatitis Qualifiers: Pancreatitis type: alcohol induced Is this a current diagnosis for this admission?: Yes Plan: 08/09/18 14:36 08/09/2018 patient is admitted with acute pancreatitis most likely secondary to chronic alcohol abuse. 08/10/2018-patient was admitted with acute on chronic pancreatitis most likely secondary to chronic alcohol abuse. Latest lipase is 279. 07/14/2018 patient was admitted with acute on chronic pancreatitis most likely secondary to chronic alcohol use. Denies any abdominal pains. Lipase levels are back to normal. (5) Suicide attempt Is this a current diagnosis for this admission?: Yes Plan: 08/09/18 14:36 08/09/2018 patient admitted with suicidal ideation and attempt patient is cleared by psychiatric team. 08/10/2018-patient is still having the mood swings and hallucinations. Denies any suicidal thoughts and ideations. 08/11/2018 -patient still having the episodes of agitation anxiety and h allucinations. Psychiatric team is following the patient. - Time Time Spent with patient: 15-24 minutes Medications reviewed and adjusted accordingly: Yes Anticipated discharge: SNF
[2018-08-11] MEDS ORDERED: MAGNESIUM CITRATE 296 ML BOTTLE PO ONE (15:00)
[2018-08-11] MEDS: QUETIAPINE FUMARATE 25 MG TABLET PO SCH (22:33)
[2018-08-12] MEDS ORDERED: RINGERS SOLUTION,LACTATED 1,000 ML IV ONE (01:30)
[2018-08-12] MEDS ORDERED: NORMAL SALINE 1000 ML 1,000 ML IV ONE (01:30)
[2018-08-12] MEDS: DIAZEPAM 5 MG TABLET PO SCH ×5 (01:42→23:52)
[2018-08-12] MEDS: THIAMINE HCL 100 MG TABLET PO SCH ×4 (05:56→22:07)
[2018-08-12] MEDS: GABAPENTIN 400 MG CAPSULE PO SCH ×4 (05:56→22:07)
[2018-08-12] MEDS: HEPARIN SOD (PORCINE) 5,000 UNIT/ML 1 ML SYRINGE SUBCUT SCH ×3 (05:57→21:26)
[2018-08-12] MEDS: LORAZEPAM INJ 2 MG/1 ML VIAL IV PRN (06:18)
[2018-08-12 07:04] LABS: ABSOLUTE EOSINOPHILS # (AUTO) 0.2 10^3/uL (0.0-0.6); ABSOLUTE LYMPHOCYTES (AUTO) 2.2 10^3/uL (0.5-4.7); ABSOLUTE MONOCYTES (AUTO) 0.7 10^3/uL (0.1-1.4); BASOPHILS % (AUTO) 0.3 % (0-2); EOSINOPHILS % (AUTO) 2.8 % (0-6); HEMOGLOBIN 12.9 g/dL (12.0-15.5); LYMPHOCYTES % (AUTO) 30.5 % (13-45); MEAN CORPUSCULAR HEMOGLOBIN 30.9 pg (27.0-33.4); MEAN CORPUSCULAR HGB CONC 34.1 g/dL (32.0-36.0); MEAN CORPUSCULAR VOLUME 91 fl (80-97); MONOCYTES % (AUTO) 9.3 % (3-13); PLATELET COUNT 447 10^3/uL (150-450); RED BLOOD COUNT 4.19 10^6/uL (3.72-5.28); RED CELL DISTRIBUTION WIDTH 15.2 % (11.5-14.0); SEGMENTED NEUTROPHILS % (AUTO) 57.1 % (42-78); TOTAL CELLS COUNTED % (AUTO) 100 %; WHITE BLOOD COUNT 7.1 10^3/uL (4.0-10.5)
[2018-08-12 07:26] LABS: ALANINE AMINOTRANSFERASE 27 U/L (9-52); ALBUMIN 2.6 g/dL (3.5-5.0); ALKALINE PHOSPHATASE 68 U/L (38-126); ANION GAP 5 (5-19); ASPARTATE AMINO TRANSFERASE 32 U/L (14-36); BILIRUBIN,DIRECT 0.3 mg/dL (0.0-0.4); BILIRUBIN,TOTAL 0.6 mg/dL (0.2-1.3); BLOOD UREA NITROGEN 18 mg/dL (7-20); CARBON DIOXIDE 21 mmol/L (22-30); CHLORIDE 116 mmol/L (98-107); GLUCOSE 75 mg/dL (75-110); POTASSIUM 3.9 mmol/L (3.6-5.0); SODIUM 142.3 mmol/L (137-145); TOTAL PROTEIN 5.7 g/dL (6.3-8.2)
[2018-08-12] MEDS: PROPRANOLOL HCL 20 MG TABLET PO SCH ×3 (10:15→22:06)
[2018-08-12] MEDS: BENZTROPINE MESYLATE 1 MG TABLET PO SCH (10:15)
[2018-08-12] MEDS: OLANZAPINE 5 MG TABLET PO SCH ×2 (10:15→17:45)
[2018-08-12] MEDS: NICOTINE 21 MG/24 HR PATCH.TD24 TD SCH (10:15)
[2018-08-12] MEDS: ROPINIROLE HCL 1 MG TABLET PO SCH ×3 (10:15→22:07)
[2018-08-12] MEDS: AMLODIPINE BESYLATE 10 MG TABLET PO SCH (10:15)
[2018-08-12] MEDS: HYDROXYZINE PAMOATE 25 MG CAPSULE PO SCH ×5 (10:15→22:07)
[2018-08-12] MEDS: BUSPIRONE HCL 10 MG TABLET PO SCH ×2 (10:15→17:46)
[2018-08-12] MEDS: DULOXETINE HCL 30 MG CAPSULE.DR PO SCH ×2 (10:15→17:45)
[2018-08-12] MEDS: POLYETHYLENE GLYCOL 3350 POWDER 17 GM/1 PACKET PO SCH (10:17)
--- NOTE | 2018-08-12 12:22 | PDOC PROGRESS REPORT ---
Subjective Progress Note for:: 08/12/18 Subjective:: 57 years old female patient with past medical history of depression and alcohol abuse brought by EMS for being suicide. Her initial blood work shows markedly elevated lipase of 9352 she has also elevated liver chemistry no both values has remarkably improved. Patient able to eat and tolerate well. Her BMP shows hypokalemia with potassium of 2.7 which is replaced now it is 3.6. Admission patient also found to have very foul-smelling diarrhea and her stool test is positive for C. difficile colitis and she has been managed with p.o. Flagyl and vancomycin. Now her diarrhea has subsided now that she is constipated. Patient evaluated by PT who recommended SNF placement. 08/09/2018-I had a long discussion with the patient's daughter and the she re ally thinks patient has hallucinations on daily bais/ having the suicidal thoughts and ideations she thinks she is unsafe for her mom to be discharged she wants this psychiatric team to come and evaluate her mom but I spoke to the 1 of the staff from the psychiatric team they told me that patient is cleared no need for further follow-up and I was also notified that patient does not qualify for inpatient psych rehab. May be the hospital administration will help in arranging a meeting with the psychiatric team and the patient's daughter so they can come to a understandable plan and management. Nurse is telling me patient is constipated requesting suppositories and was to start on mechanical soft diet agreed with the request. Nurse called me just now to notify me that patient is agitated and anxious combative requesting soft restraints. 08/10/2018-no acute events in the last 24 hours. Patient is afebrile. Patient had fluctuation in the moods. I spoke to patient's daughter Tracy she want her mom to go to AA long-term care facility and she is not in a situation to take care of her mom at home. But the patient is insisting that she is going home she is not going to a long-term care facility. The daughter and psychiatric team going to meet today to evaluate the plan of care. 08/11/2018-patient still agitated and confused having the occasional hallucinations. Patient is in restraints. Patient is to be off restraints at least for 24 hours for [facility]. So far it is not happening. No acute events in the last 24 hours. Patient is afebrile. 08/12/2018-patient found to be hypotensive last night she was given 1 L of normal saline bolus, bolus was given around 2 AM the creatinine is 1.6 3 in the morning labs today. Plan is to recheck the labs tomorrow. She is still agitated confused and having the hallucinations on soft restraints. Reason For Visit: PANCREATITIS, ETOH INTOXICATION Physical Exam Vital Signs: Temp Pulse Resp BP Pulse Ox 97.8 F 85 17 133/69 H 92 08/12/18 07:43 08/12/18 07:43 08/12/18 07:43 08/12/18 07:43 08/12/18 07:43 Intake & Output 08/11/18 08/12/18 08/13/18 06:59 06:59 06:59 Intake Total 1500 Output Total 1075 600 Balance -1075 900 Weight 66.9 kg 66.7 kg General appearance: PRESENT: mild distress Head exam: PRESENT: atraumatic Eye exam: PRESENT: PERRLA Neck exam: ABSENT: carotid bruit, JVD, lymphadenopathy, thyromegaly Respiratory exam: PRESENT: decreased breath sounds Cardiovascular exam: PRESENT: tachycardia GI/Abdominal exam: PRESENT: normal bowel sounds, soft. ABSENT: distended, guard ing, mass, organolmegaly, rebound, tenderness Extremities exam: PRESENT: full ROM. ABSENT: calf tenderness, clubbing, pedal edema Neurological exam: PRESENT: other - Patient was agitated and anxious unable to participate in neurological examination. Psychiatric exam: PRESENT: agitated, anxious Results Laboratory Results: 08/12/18 06:37 08/12/18 06:37 08/12/18 08/12/18 06:37 06:37 WBC 7.1 RBC 4.19 Hgb 12.9 Hct 38.0 MCV 91 MCH 30.9 MCHC 34.1 RDW 15.2 H Plt Count 447 Seg Neutrophils % 57.1 Lymphocytes % 30.5 Monocytes % 9.3 Eosinophils % 2.8 Basophils % 0.3 Absolute Neutrophils 4.0 Absolute Lymphocytes 2.2 Absolute Monocytes 0.7 Absolute Eosinophils 0.2 Absolute Basophils 0.0 Sodium 142.3 Potassium 3.9 Chloride 116 H Carbon Dioxide 21 L Anion Gap 5 BUN 18 Creatinine 1.63 H Est GFR ( Amer) 39 L Est GFR (Non-Af Amer) 33 L Glucose 75 Calcium 10.0 Magnesium 1.9 Total Bilirubin 0.6 AST 32 ALT 27 Alkaline Phosphatase 68 Total Protein 5.7 L Albumin 2.6 L 07/29/18 11:47 Troponin I < 0.012 Impressions: Abdomen/Pelvis CT 07/29/18 11:42 IMPRESSION: Fatty liver Gallstones Peripancreatic retroperitoneal inflammation, question pancreatitis Cervical Spine CT 07/29/18 11:42 IMPRESSION: CHRONIC DEGENERATIVE CHANGES. NO ACUTE FINDINGS. Similar left thyroid nodule with calcifications. Chest CT 07/29/18 11:42 IMPRESSION: No acute changes Head CT 07/29/18 11:42 IMPRESSION: No acute intracranial findings. EVIDENCE OF ACUTE STROKE: NO. Assessment and Plan - Diagnosis (1) Intermittent altered mental status Is this a current diagnosis for this admission?: Yes Plan: Most probably related to her underlying psychiatric disorder and alcohol withdrawal. She is on Ativan and diazepam. 08/09/2018-patient was agitated and anxious today not cooperative and combative going to put her on a soft restraints. Altered mental status probably secondary to underlying psychiatric disorders. Patient is presently on IV Ativan and po diazepam. Patient's home medications are restarted today. 08/10/2018-patient has fluctuation in the mood most likely secondary to underlying psychiatric disorders psych is going to reevaluate her today and they have plans to sit down and discuss the care with patient's daughter today. The meantime will continue the present management. 08/11/2018-patient has intermittent altered mental status with hallucinations agitation and anxiety. She is on soft restraints. We will try to remove the restraints this morning but patient try to come out of the bed and if she is at high risk for fall. Unfortunately we had to put the restraints back on. Psychiatric team is following the patient. 08/12/2018-patient has his altered mental status with hallucinations, agitation and anxiety most likely secondary to underlying psychiatric disorders. Patient is on restraints. Patient has a bed available at rehab but we are unable to take her off the restraints. Psychiatric evaluation was done we will follow the recommendations. (2) Elevated liver chemistry Is this a current diagnosis for this admission?: Yes Plan: 08/09/18 14:34 Patient is admitted with elevated liver enzymes the gradually coming back to normal. It is most likely secondary to alcoholic liver disease. 08/10/2018-patient was admitted with elevated liver enzymes the progressively coming towards normal. Today AST is 39 slightly elevated, ALT is 25 normal, alkaline phosphatase is 160 normal. Elevated liver enzymes probably acute insult on the liver secondary to alcohol abuse. 08/11/2018-elevated liver enzymes may be secondary to heavy alcohol use and toxic injury to the liver. Today LFTs are almost normal. 08/12/2018-patient has elevated liver enzymes on admission most likely secondary to heavy alcohol use under toxic injury to the liver the LFTs are came back to normal now. Patient came down to 279. (3) Clostridium difficile colitis Is this a current diagnosis for this admission?: Yes Plan: 08/09/18 14:35 Patient was admitted with C. difficile colitis and a severe diarrhea stool culture is positive for C. difficile now she is severely constipated to start her on Dulcolax suppositories p.o. vancomycin was discontinued. 08/10/2018-patient was admitted with C. difficile colitis. C. difficile was positive. Diarrhea resolved. She has not had any bowel movement for the last 2 days. She still on contact isolation until repeat stool cultures are negative for C. difficile. She is off p.o. vancomycin. 08/11/2018 patient is still on contact isolation is a C. difficile positive having the diarrhea now she is severely constipated we tried suppositories which had a lax is not helping I am going to put her on mag citrate from today. If this C. difficile is negative we will discontinue isolation. 08/12/2018-on admission stool was positive for C. difficile she received p.o. vancomycin for the next several days she has constipation now she has a good bowel movements patient is still on contact isolation requested the nurse to send a stool for C. difficile again. (4) Acute pancreatitis Qualifiers: Pancreatitis type: alcohol induced Is this a current diagnosis for this admission?: Yes Plan: 08/09/18 14:36 08/09/2018 patient is admitted with acute pancreatitis most likely secondary to chronic alcohol abuse. 08/10/2018-patient was admitted with acute on chronic pancreatitis most likely secondary to chronic alcohol abuse. Latest lipase is 279. 08/11/2018 patient was admitted with acute on chronic pancreatitis most likely secondary to chronic alcohol use. Denies any abdominal pains. Lipase levels are back to normal. 08/12/2018 patient was admitted with acute on chronic pancreatitis secondary to chronic alcohol abuse. Lipase came down to 279. (5) Suicide attempt Is this a current diagnosis for this admission?: Yes (6) Acute kidney failure Is this a current diagnosis for this admission?: Yes Plan: 08/12/2018-patient's baseline creatinine is around 0.5 creatinine jumped to 1.63 today. Patient was hypotensive last night received 1 L of normal saline bolus acute kidney injury most likely secondary to prerenal causes plan is to recheck the labs again tomorrow. - Time Time Spent with patient: 15-24 minutes Smoking Cessation Education: over 10 minutes Medications reviewed and adjusted accordingly: Yes Anticipated discharge: SNF
[2018-08-12] MEDS: QUETIAPINE FUMARATE 25 MG TABLET PO SCH ×2 (21:24→22:06)
[2018-08-13] MEDS: GABAPENTIN 400 MG CAPSULE PO SCH ×3 (05:46→21:05)
[2018-08-13] MEDS: THIAMINE HCL 100 MG TABLET PO SCH ×3 (05:46→21:05)
[2018-08-13] MEDS: HEPARIN SOD (PORCINE) 5,000 UNIT/ML 1 ML SYRINGE SUBCUT SCH ×3 (05:46→21:05)
[2018-08-13] MEDS: DIAZEPAM 5 MG TABLET PO SCH ×2 (05:46→12:57)
[2018-08-13] MEDS: DULOXETINE HCL 30 MG CAPSULE.DR PO SCH ×2 (11:13→17:18)
[2018-08-13] MEDS: PROPRANOLOL HCL 20 MG TABLET PO SCH ×2 (11:14→21:05)
[2018-08-13] MEDS: HYDROXYZINE PAMOATE 25 MG CAPSULE PO SCH ×4 (11:16→21:04)
[2018-08-13] MEDS: ROPINIROLE HCL 1 MG TABLET PO SCH ×2 (11:16→21:04)
[2018-08-13] MEDS: AMLODIPINE BESYLATE 10 MG TABLET PO SCH (11:16)
[2018-08-13] MEDS: BUSPIRONE HCL 10 MG TABLET PO SCH ×2 (11:16→17:18)
[2018-08-13] MEDS: OLANZAPINE 5 MG TABLET PO SCH ×2 (11:16→17:18)
[2018-08-13] MEDS: POLYETHYLENE GLYCOL 3350 POWDER 17 GM/1 PACKET PO SCH (11:17)
[2018-08-13] MEDS: BENZTROPINE MESYLATE 1 MG TABLET PO SCH (11:17)
[2018-08-13] MEDS: NICOTINE 21 MG/24 HR PATCH.TD24 TD SCH (11:17)
[2018-08-13 12:02] LABS: ABSOLUTE BASOPHILS # (AUTO) 0.1 10^3/uL (0.0-0.2); ABSOLUTE EOSINOPHILS # (AUTO) 0.2 10^3/uL (0.0-0.6); ABSOLUTE LYMPHOCYTES (AUTO) 1.6 10^3/uL (0.5-4.7); ABSOLUTE MONOCYTES (AUTO) 0.6 10^3/uL (0.1-1.4); ABSOLUTE NEUT (AUTO) 7.6 10^3/uL (1.7-8.2); BASOPHILS % (AUTO) 0.8 % (0-2); EOSINOPHILS % (AUTO) 1.7 % (0-6); HEMATOCRIT 39.3 % (36.0-47.0); HEMOGLOBIN 13.3 g/dL (12.0-15.5); LYMPHOCYTES % (AUTO) 16.1 % (13-45); MEAN CORPUSCULAR HEMOGLOBIN 30.6 pg (27.0-33.4); MEAN CORPUSCULAR HGB CONC 33.8 g/dL (32.0-36.0); MEAN CORPUSCULAR VOLUME 90 fl (80-97); MONOCYTES % (AUTO) 5.9 % (3-13); PLATELET COUNT 476 10^3/uL (150-450); RED BLOOD COUNT 4.35 10^6/uL (3.72-5.28); RED CELL DISTRIBUTION WIDTH 15.3 % (11.5-14.0); SEGMENTED NEUTROPHILS % (AUTO) 75.5 % (42-78); TOTAL CELLS COUNTED % (AUTO) 100 %
[2018-08-13 12:12] LABS: ALANINE AMINOTRANSFERASE 20 U/L (9-52); ALBUMIN 3.6 g/dL (3.5-5.0); ALKALINE PHOSPHATASE 122 U/L (38-126); ANION GAP 11 (5-19); ASPARTATE AMINO TRANSFERASE 35 U/L (14-36); BILIRUBIN,DIRECT 0.2 mg/dL (0.0-0.4); BILIRUBIN,TOTAL 0.3 mg/dL (0.2-1.3); BLOOD UREA NITROGEN 13 mg/dL (7-20); CALCIUM 9.9 mg/dL (8.4-10.2); CARBON DIOXIDE 29 mmol/L (22-30); CHLORIDE 99 mmol/L (98-107); GLUCOSE 210 mg/dL (75-110); POTASSIUM 4.4 mmol/L (3.6-5.0); TOTAL PROTEIN 7.2 g/dL (6.3-8.2)
--- NOTE | 2018-08-13 13:02 | PDOC PROGRESS REPORT ---
Subjective Progress Note for:: 08/13/18 Subjective:: 57 years old female patient with past medical history of depression and alcohol abuse brought by EMS for being suicide. Her initial blood work shows markedly elevated lipase of 9352 she has also elevated liver chemistry no both values has remarkably improved. Patient able to eat and tolerate well. Her BMP shows hypokalemia with potassium of 2.7 which is replaced now it is 3.6. Admission patient also found to have very foul-smelling diarrhea and her stool test is positive for C. difficile colitis and she has been managed with p.o. Flagyl and vancomycin. Now her diarrhea has subsided now that she is constipated. Patient evaluated by PT who recommended SNF placement. 08/09/2018-I had a long discussion with the patient's daughter and the she re ally thinks patient has hallucinations on daily bais/ having the suicidal thoughts and ideations she thinks she is unsafe for her mom to be discharged she wants this psychiatric team to come and evaluate her mom but I spoke to the 1 of the staff from the psychiatric team they told me that patient is cleared no need for further follow-up and I was also notified that patient does not qualify for inpatient psych rehab. May be the hospital administration will help in arranging a meeting with the psychiatric team and the patient's daughter so they can come to a understandable plan and management. Nurse is telling me patient is constipated requesting suppositories and was to start on mechanical soft diet agreed with the request. Nurse called me just now to notify me that patient is agitated and anxious combative requesting soft restraints. 08/10/2018-no acute events in the last 24 hours. Patient is afebrile. Patient had fluctuation in the moods. I spoke to patient's daughter Tracy she want her mom to go to AA long-term care facility and she is not in a situation to take care of her mom at home. But the patient is insisting that she is going home she is not going to a long-term care facility. The daughter and psychiatric team going to meet today to evaluate the plan of care. 08/11/2018-patient still agitated and confused having the occasional hallucinations. Patient is in restraints. Patient is to be off restraints at least for 24 hours for the [facility]f to accept the patient. So far it is not happening. No acute events in the last 24 hours. Patient is afebrile. 08/12/2018-patient found to be hypotensive last night she was given 1 L of normal saline bolus, bolus was given around 2 AM the creatinine is 1.6 3 in the morning labs today. Plan is to recheck the labs tomorrow. She is still agitated confused and having the hallucinations on soft restraints. 08/13/2018-no acute events in the last 24 hours. Patient is afebrile. She is off the restraints. Patient's creatinine yesterday is 1.6 3 repeat creatinine today is 0.57 improved. Comfortably in the bed not in distress. Communicating reasonably denies any problems. Reason For Visit: PANCREATITIS, ETOH INTOXICATION Physical Exam Vital Signs: Temp Pulse Resp BP Pulse Ox 98.1 F 115 H 16 129/90 H 97 08/13/18 12:13 08/13/18 12:13 08/13/18 12:13 08/13/18 12:13 08/13/18 12:13 Intake & Output 08/12/18 08/13/18 08/14/18 06:59 06:59 06:59 Intake Total 1500 120 Output Total 600 0 Balance 900 120 Weight 66.7 kg 62.7 kg General appearance: PRESENT: no acute distress Head exam: PRESENT: atraumatic Eye exam: PRESENT: PERRLA Neck exam: ABSENT: carotid bruit, JVD, lymphadenopathy, thyromegaly Respiratory exam: PRESENT: decreased breath sounds Cardiovascular exam: PRESENT: tachycardia GI/Abdominal exam: PRESENT: normal bowel sounds, soft. ABSENT: distended, guarding, mass, organolmegaly, rebound, tenderness Extremities exam: PRESENT: full ROM. ABSENT: calf tenderness, clubbing, pedal edema Neurological exam: PRESENT: alert, awake, CN II-XII grossly intact. ABSENT: motor sensory deficit Psychiatric exam: PRESENT: appropriate affect, normal mood. ABSENT: homicidal ideation, suicidal ideation Results Laboratory Results: 08/13/18 11:41 08/13/18 11:41 08/13/18 08/13/18 11:41 11:41 WBC 10.0 RBC 4.35 Hgb 13.3 Hct 39.3 MCV 90 MCH 30.6 MCHC 33.8 RDW 15.3 H Plt Count 476 H Seg Neutrophils % 75.5 Lymphocytes % 16.1 Monocytes % 5.9 Eosinophils % 1.7 Basophils % 0.8 Absolute Neutrophils 7.6 Absolute Lymphocytes 1.6 Absolute Monocytes 0.6 Absolute Eosinophils 0.2 Absolute Basophils 0.1 Sodium 139.0 Potassium 4.4 Chloride 99 Carbon Dioxide 29 Anion Gap 11 BUN 13 Creatinine 0.57 Est GFR ( Amer) > 60 Est GFR (Non-Af Amer) > 60 Glucose 210 H Calcium 9.9 Magnesium 2.1 Total Bilirubin 0.3 AST 35 ALT 20 Alkaline Phosphatase 122 Total Protein 7.2 Albumin 3.6 07/29/18 11:47 Troponin I < 0.012 Impressions: Abdomen/Pelvis CT 07/29/18 11:42 IMPRESSION: Fatty liver Gallstones Peripancreatic retroperitoneal inflammation, question pancreatitis Cervical Spine CT 07/29/18 11:42 IMPRESSION: CHRONIC DEGENERATIVE CHANGES. NO ACUTE FINDINGS. Similar left thyroid nodule with calcifications. Chest CT 07/29/18 11:42 IMPRESSION: No acute changes Head CT 07/29/18 11:42 IMPRESSION: No acute intracranial findings. EVIDENCE OF ACUTE STROKE: NO. Assessment and Plan - Diagnosis (1) Intermittent altered mental status Is this a current diagnosis for this admission?: Yes Plan: Most probably related to her underlying psychiatric disorder and alcohol withdrawal. She is on Ativan and diazepam. 08/09/2018-patient was agitated and anxious today not cooperative and combative going to put her on a soft restraints. Altered mental status probably secondary to underlying psychiatric disorders. Patient is presently on IV Ativan and po diazepam. Patient's home medications are restarted today. 08/10/2018-patient has fluctuation in the mood most likely secondary to underlying psychiatric disorders psych is going to reevaluate her today and they have plans to sit down and discuss the care with patient's daughter today. The meantime will continue the present management. 08/11/2018-patient has intermittent altered mental status with hallucinations agitation and anxiety. She is on soft restraints. We will try to remove the restraints this morning but patient try to come out of the bed and if she is at high risk for fall. Unfortunately we had to put the restraints back on. Psychiatric team is following the patient. 08/12/2018-patient has his altered mental status with hallucinations, agitation and anxiety most likely secondary to underlying psychiatric disorders. Patient is on restraints. Patient has a bed available at rehab but we are unable to take her off the restraints. Psychiatric evaluation was done we will follow the recommendations. 08/13/2018-patient still having the episodes of change in mental status associated with hallucinations agitation and anxiety she is off the restraints for now. (2) Elevated liver chemistry Is this a current diagnosis for this admission?: Yes Plan: 08/09/18 14:34 Patient is admitted with elevated liver enzymes the gradually coming back to normal. It is most likely secondary to alcoholic liver disease. 08/10/2018-patient was admitted with elevated liver enzymes the progressively coming towards normal. Today AST is 39 slightly elevated, ALT is 25 normal, alkaline phosphatase is 160 normal. Elevated liver enzymes probably acute insult on the liver secondary to alcohol abuse. 08/11/2018-elevated liver enzymes may be secondary to heavy alcohol use and toxic injury to the liver. Today LFTs are almost normal. 08/12/2018-patient has elevated liver enzymes on admission most likely secondary to heavy alcohol use under toxic injury to the liver the LFTs are came back to normal now. Patient came down to 279. 08/13/2018-LFTs came back to normal. High LFTs initially most likely secondary to toxic liver injury due to alcohol abuse. (3) Clostridium difficile colitis Is this a current diagnosis for this admission?: Yes Plan: 08/09/18 14:35 Patient was admitted with C. difficile colitis and a severe diarrhea stool culture is positive for C. difficile now she is severely constipated to start her on Dulcolax suppositories p.o. vancomycin was discontinued. 08/10/2018-patient was admitted with C. difficile colitis. C. difficile was p ositive. Diarrhea resolved. She has not had any bowel movement for the last 2 days. She still on contact isolation until repeat stool cultures are negative for C. difficile. She is off p.o. vancomycin. 08/11/2018 patient is still on contact isolation is a C. difficile positive having the diarrhea now she is severely constipated we tried suppositories which had a lax is not helping I am going to put her on mag citrate from today. If this C. difficile is negative we will discontinue isolation. 08/12/2018-on admission stool was positive for C. difficile she received p.o. vancomycin for the next several days she has constipation now she has a good bowel movements patient is still on contact isolation requested the nurse to send a stool for C. difficile again. 08/13/2018 patient was admitted with diarrhea and C. difficile positive she was treated with p.o. vancomycin repeat serologies negative for C. difficile. (4) Acute pancreatitis Qualifiers: Pancreatitis type: alcohol induced Is this a current diagnosis for this admission?: Yes Plan: 08/09/18 14:36 08/09/2018 patient is admitted with acute pancreatitis most likely secondary to chronic alcohol abuse. 08/10/2018-patient was admitted with acute on chronic pancreatitis most likely secondary to chronic alcohol abuse. Latest lipase is 279. 08/11/2018 patient was admitted with acute on chronic pancreatitis most likely secondary to chronic alcohol use. Denies any abdominal pains. Lipase levels are back to normal. 08/12/2018 patient was admitted with acute on chronic pancreatitis secondary to chronic alcohol abuse. Lipase came down to 279. 08/13/2018-patient was admitted with acute on chronic pancreatitis secondary to alcohol abuse. Lipase came down to normal. (5) Suicide attempt Is this a current diagnosis for this admission?: Yes (6) Acute kidney failure Is this a current diagnosis for this admission?: Yes Plan: 08/12/2018-patient's baseline creatinine is around 0.5 creatinine jumped to 1.63 today. Patient was hypotensive last night received 1 L of normal saline bolus acute kidney injury most likely secondary to prerenal causes plan is to recheck the labs again tomorrow. 2018-since baseline creatinine is around 0.5 it is jumped to 1.63 yesterday after giving 1 L of IV fluid bolus creatinine came down to 0.57 today. Acute kidney injury most likely secondary to prerenal causes including dehydration resolved. - Time Time Spent with patient: 15-24 minutes Medications reviewed and adjusted accordingly: Yes Anticipated discharge: SNF
[2018-08-13] MEDS: QUETIAPINE FUMARATE 25 MG TABLET PO SCH (21:05)
[2018-08-14] MEDS: LORAZEPAM INJ 2 MG/1 ML VIAL IV PRN ×2 (02:27→20:43)
[2018-08-14 04:51] LABS: ABSOLUTE EOSINOPHILS # (AUTO) 0.3 10^3/uL (0.0-0.6); ABSOLUTE LYMPHOCYTES (AUTO) 2.2 10^3/uL (0.5-4.7); ABSOLUTE MONOCYTES (AUTO) 0.3 10^3/uL (0.1-1.4); BASOPHILS % (AUTO) 0.3 % (0-2); EOSINOPHILS % (AUTO) 4.3 % (0-6); HEMATOCRIT 38.8 % (36.0-47.0); HEMOGLOBIN 13.1 g/dL (12.0-15.5); LYMPHOCYTES % (AUTO) 31.9 % (13-45); MEAN CORPUSCULAR HEMOGLOBIN 30.7 pg (27.0-33.4); MEAN CORPUSCULAR HGB CONC 33.9 g/dL (32.0-36.0); MEAN CORPUSCULAR VOLUME 91 fl (80-97); PLATELET COUNT 422 10^3/uL (150-450); RED BLOOD COUNT 4.29 10^6/uL (3.72-5.28); SEGMENTED NEUTROPHILS % (AUTO) 58.5 % (42-78); TOTAL CELLS COUNTED % (AUTO) 100 %; WHITE BLOOD COUNT 6.9 10^3/uL (4.0-10.5)
[2018-08-14] MEDS: GABAPENTIN 400 MG CAPSULE PO SCH ×3 (05:05→21:04)
[2018-08-14] MEDS: THIAMINE HCL 100 MG TABLET PO SCH ×3 (05:05→21:03)
[2018-08-14] MEDS: HEPARIN SOD (PORCINE) 5,000 UNIT/ML 1 ML SYRINGE SUBCUT SCH ×3 (05:05→21:04)
[2018-08-14 05:14] LABS: ALANINE AMINOTRANSFERASE 17 U/L (9-52); ALBUMIN 3.6 g/dL (3.5-5.0); ALKALINE PHOSPHATASE 109 U/L (38-126); ANION GAP 12 (5-19); ASPARTATE AMINO TRANSFERASE 25 U/L (14-36); BILIRUBIN,DIRECT 0.3 mg/dL (0.0-0.4); BILIRUBIN,TOTAL 0.3 mg/dL (0.2-1.3); BLOOD UREA NITROGEN 13 mg/dL (7-20); CALCIUM 9.9 mg/dL (8.4-10.2); CARBON DIOXIDE 29 mmol/L (22-30); CHLORIDE 98 mmol/L (98-107); GLUCOSE 195 mg/dL (75-110); POTASSIUM 4.3 mmol/L (3.6-5.0); SODIUM 139.1 mmol/L (137-145); TOTAL PROTEIN 6.8 g/dL (6.3-8.2)
[2018-08-14] MEDS ORDERED: DIAZEPAM 5 MG TABLET PO SCH (06:00)
[2018-08-14] MEDS: NICOTINE 21 MG/24 HR PATCH.TD24 TD SCH (10:14)
[2018-08-14] MEDS: POLYETHYLENE GLYCOL 3350 POWDER 17 GM/1 PACKET PO SCH (10:14)
--- NOTE | 2018-08-14 10:46 | PDOC PROGRESS REPORT ---
Subjective Progress Note for:: 08/14/18 Subjective:: 57 years old female patient with past medical history of depression and alcohol abuse brought by EMS for being suicide. Her initial blood work shows markedly elevated lipase of 9352 she has also elevated liver chemistry no both values has remarkably improved. Patient able to eat and tolerate well. Her BMP shows hypokalemia with potassium of 2.7 which is replaced now it is 3.6. Admission patient also found to have very foul-smelling diarrhea and her stool test is positive for C. difficile colitis and she has been managed with p.o. Flagyl and vancomycin. Now her diarrhea has subsided now that she is constipated. Patient evaluated by PT who recommended SNF placement. 08/09/2018-I had a long discussion with the patient's daughter and the she re ally thinks patient has hallucinations on daily bais/ having the suicidal thoughts and ideations she thinks she is unsafe for her mom to be discharged she wants this psychiatric team to come and evaluate her mom but I spoke to the 1 of the staff from the psychiatric team they told me that patient is cleared no need for further follow-up and I was also notified that patient does not qualify for inpatient psych rehab. May be the hospital administration will help in arranging a meeting with the psychiatric team and the patient's daughter so they can come to a understandable plan and management. Nurse is telling me patient is constipated requesting suppositories and was to start on mechanical soft diet agreed with the request. Nurse called me just now to notify me that patient is agitated and anxious combative requesting soft restraints. 08/10/2018-no acute events in the last 24 hours. Patient is afebrile. Patient had fluctuation in the moods. I spoke to patient's daughter Tracy she want her mom to go to AA long-term care facility and she is not in a situation to take care of her mom at home. But the patient is insisting that she is going home she is not going to a long-term care facility. The daughter and psychiatric team going to meet today to evaluate the plan of care. 08/11/2018-patient still agitated and confused having the occasional hallucinations. Patient is in restraints. Patient is to be off restraints at least for 24 hours for the [facility] to accept the patient. So far it is not happening. No acute events in the last 24 hours. Patient is afebrile. 08/12/2018-patient found to be hypotensive last night she was given 1 L of normal saline bolus, bolus was given around 2 AM the creatinine is 1.6 3 in the morning labs today. Plan is to recheck the labs tomorrow. She is still agitated confused and having the hallucinations on soft restraints. 08/13/2018-no acute events in the last 24 hours. Patient is afebrile. She is off the restraints. Patient's creatinine yesterday is 1.6 3 repeat creatinine today is 0.57 improved. Comfortably in the bed not in distress. Communicating reasonably denies any problems. 08/14/2018-no acute events in the last 24 hours. Patient is off the restraints for more than 24 hours. Comfortably in the bed sleeping well. Afebrile. Reason For Visit: PANCREATITIS, ETOH INTOXICATION Physical Exam Vital Signs: Temp Pulse Resp BP Pulse Ox 97.5 F 82 18 148/83 H 97 08/14/18 08:50 08/14/18 08:50 08/14/18 08:50 08/14/18 08:50 08/14/18 08:50 Intake & Output 08/13/18 08/14/18 08/15/18 06:59 06:59 06:59 Intake Total 120 1207 Output Total 0 650 Balance 120 557 Weight 62.7 kg 62.9 kg General appearance: PRESENT: no acute distress Head exam: PRESENT: atraumatic Eye exam: PRESENT: PERRLA Mouth exam: PRESENT: moist, tongue midline Neck exam: ABSENT: carotid bruit, JVD, lymphadenopathy, thyromegaly Respiratory exam: PRESENT: decreased breath sounds Cardiovascular exam: PRESENT: tachycardia GI/Abdominal exam: PRESENT: normal bowel sounds, soft. ABSENT: distended, guarding, mass, organolmegaly, rebound, tenderness Neurological exam: PRESENT: alert, awake, oriented to person, oriented to place, oriented to time, oriented to situation, CN II-XII grossly intact. ABSENT: motor sensory deficit Psychiatric exam: PRESENT: appropriate affect, normal mood. ABSENT: homicidal ideation, suicidal ideation Results Laboratory Results: 08/14/18 04:28 08/14/18 04:28 08/13/18 08/13/18 08/14/18 11:41 11:41 04:28 WBC 10.0 6.9 RBC 4.35 4.29 Hgb 13.3 13.1 Hct 39.3 38.8 MCV 90 91 MCH 30.6 30.7 MCHC 33.8 33.9 RDW 15.3 H 15.0 H Plt Count 476 H 422 Seg Neutrophils % 75.5 58.5 Lymphocytes % 16.1 31.9 Monocytes % 5.9 5.0 Eosinophils % 1.7 4.3 Basophils % 0.8 0.3 Absolute Neutrophils 7.6 4.0 Absolute Lymphocytes 1.6 2.2 Absolute Monocytes 0.6 0.3 Absolute Eosinophils 0.2 0.3 Absolute Basophils 0.1 0.0 Sodium 139.0 Potassium 4.4 Chloride 99 Carbon Dioxide 29 Anion Gap 11 BUN 13 Creatinine 0.57 Est GFR ( Amer) > 60 Est GFR (Non-Af Amer) > 60 Glucose 210 H Calcium 9.9 Magnesium 2.1 Total Bilirubin 0.3 AST 35 ALT 20 Alkaline Phosphatase 122 Total Protein 7.2 Albumin 3.6 08/14/18 04:28 WBC RBC Hgb Hct MCV MCH MCHC RDW Plt Count Seg Neutrophils % Lymphocytes % Monocytes % Eosinophils % Basophils % Absolute Neutrophils Absolute Lymphocytes Absolute Monocytes Absolute Eosinophils Absolute Basophils Sodium 139.1 Potassium 4.3 Chloride 98 Carbon Dioxide 29 Anion Gap 12 BUN 13 Creatinine 0.59 Est GFR ( Amer) > 60 Est GFR (Non-Af Amer) > 60 Glucose 195 H Calcium 9.9 Magnesium 2.0 Total Bilirubin 0.3 AST 25 ALT 17 Alkaline Phosphatase 109 Total Protein 6.8 Albumin 3.6 07/29/18 11:47 Troponin I < 0.012 Impressions: Abdomen/Pelvis CT 07/29/18 11:42 IMPRESSION: Fatty liver Gallstones Peripancreatic retroperitoneal inflammation, question pancreatitis Cervical Spine CT 07/29/18 11:42 IMPRESSION: CHRONIC DEGENERATIVE CHANGES. NO ACUTE FINDINGS. Similar left thyroid nodule with calcifications. Chest CT 07/29/18 11:42 IMPRESSION: No acute changes Head CT 07/29/18 11:42 IMPRESSION: No acute intracranial findings. EVIDENCE OF ACUTE STROKE: NO. Assessment and Plan - Diagnosis (1) Intermittent altered mental status Is this a current diagnosis for this admission?: Yes Plan: Most probably related to her underlying psychiatric disorder and alcohol withdrawal. She is on Ativan and diazepam. 08/09/2018-patient was agitated and anxious today not cooperative and combative going to put her on a soft restraints. Altered mental status probably secondary to underlying psychiatric disorders. Patient is presently on IV Ativan and po diazepam. Patient's home medications are restarted today. 08/10/2018-patient has fluctuation in the mood most likely secondary to underlying psychiatric disorders psych is going to reevaluate her today and they have plans to sit down and discuss the care with patient's daughter today. The meantime will continue the present management. 08/11/2018-patient has intermittent altered mental status with hallucinations agitation and anxiety. She is on soft restraints. We will try to remove the restraints this morning but patient try to come out of the bed and if she is at high risk for fall. Unfortunately we had to put the restraints back on. Psychiatric team is following the patient. 08/12/2018-patient has his altered mental status with hallucinations, agitation and anxiety most likely secondary to underlying psychiatric disorders. Patient is on restraints. Patient has a bed available at rehab but we are unable to take her off the restraints. Psychiatric evaluation was done we will follow the recommendations. 08/13/2018-patient still having the episodes of change in mental status associated with hallucinations agitation and anxiety she is off the restraints for now. 08/14/2018-patient is comfortable in the sleep. She is more comfortable since yesterday less agitated since yesterday. Plan is to discontinue diazepam discontinue hydroxyzine as needed. (2) Elevated liver chemistry Is this a current diagnosis for this admission?: Yes Plan: 08/09/18 14:34 Patient is admitted with elevated liver enzymes the gradually coming back to normal. It is most likely secondary to alcoholic liver disease. 08/10/2018-patient was admitted with elevated liver enzymes the progressively coming towards normal. Today AST is 39 slightly elevated, ALT is 25 normal, alkaline phosphatase is 160 normal. Elevated liver enzymes probably acute insult on the liver secondary to alcohol abuse. 08/11/2018-elevated liver enzymes may be secondary to heavy alcohol use and toxic injury to the liver. Today LFTs are almost normal. 08/12/2018-patient has elevated liver enzymes on admission most likely secondary to heavy alcohol use under toxic injury to the liver the LFTs are came back to normal now. Patient came down to 279. 08/13/2018-LFTs came back to normal. High LFTs initially most likely secondary to toxic liver injury due to alcohol abuse. 08/14/2018-LFTs are normal transaminitis is resolved. (3) Clostridium difficile colitis Is this a current diagnosis for this admission?: Yes Plan: 08/09/18 14:35 Patient was admitted with C. difficile colitis and a severe diarrhea stool culture is positive for C. difficile now she is severely constipated to start her on Dulcolax suppositories p.o. vancomycin was discontinued. 08/10/2018-patient was admitted with C. difficile colitis. C. difficile was positive. Diarrhea resolved. She has not had any bowel movement for the last 2 days. She still on contact isolation until repeat stool cultures are negative for C. difficile. She is off p.o. vancomycin. 08/11/2018 patient is still on contact isolation is a C. difficile positive having the diarrhea now she is severely constipated we tried suppositories which had a lax is not helping I am going to put her on mag citrate from today. If this C. difficile is negative we will discontinue isolation. 08/12/2018-on admission stool was positive for C. difficile she received p.o. vancomycin for the next several days she has constipation now she has a good bowel movements patient is still on contact isolation requested the nurse to send a stool for C. difficile again. 08/13/2018 patient was admitted with diarrhea and C. difficile positive she was treated with p.o. vancomycin repeat serologies negative for C. difficile. 08/14/2018-patient came in with the diarrhea and C. difficile positive follow-up C. difficile serology is negative. pt is not on isolation anymore. (4) Acute pancreatitis Qualifiers: Pancreatitis type: alcohol induced Is this a current diagnosis for this admission?: Yes Plan: 08/09/18 14:36 08/09/2018 patient is admitted with acute pancreatitis most likely secondary to chronic alcohol abuse. 08/10/2018-patient was admitted with acute on chronic pancreatitis most likely secondary to chronic alcohol abuse. Latest lipase is 279. 08/11/2018 patient was admitted with acute on chronic pancreatitis most likely secondary to chronic alcohol use. Denies any abdominal pains. Lipase levels are back to normal. 08/12/2018 patient was admitted with acute on chronic pancreatitis secondary to chronic alcohol abuse. Lipase came down to 279. 08/13/2018-patient was admitted with acute on chronic pancreatitis secondary to alcohol abuse. Lipase came down to normal. 08/14/2018-patient admitted with acute on chronic pancreatitis secondary to auscultate abuse. Lipase level is back to normal. (5) Suicide attempt Is this a current diagnosis for this admission?: Yes (6) Acute kidney failure Is this a current diagnosis for this admission?: Yes Plan: 08/12/2018-patient's baseline creatinine is around 0.5 creatinine jumped to 1.63 today. Patient was hypotensive last night received 1 L of normal saline bolus acute kidney injury most likely secondary to prerenal causes plan is to recheck the labs again tomorrow. 08/13/2018-since baseline creatinine is around 0.5 it is jumped to 1.63 yesterday after giving 1 L of IV fluid bolus creatinine came down to 0.57 today. Acute kidney injury most likely secondary to prerenal causes including dehydration resolved. 08/14/2018-latest creatinine 0.6 acute kidney injury most likely prerenal causes due to poor oral intake is resolved. - Time Time Spent with patient: 15-24 minutes Medications reviewed and adjusted accordingly: Yes Anticipated discharge: SNF
[2018-08-14] MEDS: BENZTROPINE MESYLATE 1 MG TABLET PO SCH (11:19)
[2018-08-14] MEDS: AMLODIPINE BESYLATE 10 MG TABLET PO SCH (11:19)
[2018-08-14] MEDS: PROPRANOLOL HCL 20 MG TABLET PO SCH ×2 (11:19→21:04)
[2018-08-14] MEDS: BUSPIRONE HCL 10 MG TABLET PO SCH ×2 (11:19→18:00)
[2018-08-14] MEDS: ROPINIROLE HCL 1 MG TABLET PO SCH ×2 (11:19→21:04)
[2018-08-14] MEDS: HYDROXYZINE PAMOATE 25 MG CAPSULE PO SCH ×4 (11:20→21:04)
[2018-08-14] MEDS: DULOXETINE HCL 30 MG CAPSULE.DR PO SCH ×2 (11:20→17:59)
[2018-08-14] MEDS: OLANZAPINE 5 MG TABLET PO SCH ×2 (11:20→18:00)
[2018-08-14] MEDS: QUETIAPINE FUMARATE 25 MG TABLET PO SCH (21:04)
[2018-08-15] MEDS: GABAPENTIN 400 MG CAPSULE PO SCH ×3 (05:17→22:17)
[2018-08-15] MEDS: THIAMINE HCL 100 MG TABLET PO SCH ×3 (05:17→22:17)
[2018-08-15] MEDS: HEPARIN SOD (PORCINE) 5,000 UNIT/ML 1 ML SYRINGE SUBCUT SCH ×3 (05:17→22:17)
[2018-08-15] MEDS: LORAZEPAM INJ 2 MG/1 ML VIAL IV PRN ×3 (05:47→11:14)
[2018-08-15 06:04] LABS: ABSOLUTE BASOPHILS # (AUTO) 0.1 10^3/uL (0.0-0.2); ABSOLUTE EOSINOPHILS # (AUTO) 0.4 10^3/uL (0.0-0.6); ABSOLUTE LYMPHOCYTES (AUTO) 2.6 10^3/uL (0.5-4.7); ABSOLUTE MONOCYTES (AUTO) 0.5 10^3/uL (0.1-1.4); ABSOLUTE NEUT (AUTO) 4.9 10^3/uL (1.7-8.2); BASOPHILS % (AUTO) 1.5 % (0-2); EOSINOPHILS % (AUTO) 4.8 % (0-6); HEMATOCRIT 42.5 % (36.0-47.0); HEMOGLOBIN 14.3 g/dL (12.0-15.5); LYMPHOCYTES % (AUTO) 30.5 % (13-45); MEAN CORPUSCULAR HEMOGLOBIN 30.7 pg (27.0-33.4); MEAN CORPUSCULAR HGB CONC 33.7 g/dL (32.0-36.0); MEAN CORPUSCULAR VOLUME 91 fl (80-97); MONOCYTES % (AUTO) 5.8 % (3-13); PLATELET COUNT 398 10^3/uL (150-450); RED BLOOD COUNT 4.65 10^6/uL (3.72-5.28); RED CELL DISTRIBUTION WIDTH 15.2 % (11.5-14.0); SEGMENTED NEUTROPHILS % (AUTO) 57.4 % (42-78); TOTAL CELLS COUNTED % (AUTO) 100 %; WHITE BLOOD COUNT 8.6 10^3/uL (4.0-10.5)
[2018-08-15] MEDS: HYDROXYZINE PAMOATE 25 MG CAPSULE PO SCH ×4 (09:49→22:17)
[2018-08-15 09:50] LABS: ALANINE AMINOTRANSFERASE 17 U/L (9-52); ALBUMIN 4.3 g/dL (3.5-5.0); ALKALINE PHOSPHATASE 121 U/L (38-126); ANION GAP 15 (5-19); ASPARTATE AMINO TRANSFERASE 37 U/L (14-36); BILIRUBIN,DIRECT 0.4 mg/dL (0.0-0.4); BILIRUBIN,TOTAL 0.5 mg/dL (0.2-1.3); BLOOD UREA NITROGEN 15 mg/dL (7-20); CALCIUM 10.5 mg/dL (8.4-10.2); CARBON DIOXIDE 28 mmol/L (22-30); CHLORIDE 97 mmol/L (98-107); GLUCOSE 147 mg/dL (75-110); POTASSIUM 5.1 mmol/L (3.6-5.0); SODIUM 140.3 mmol/L (137-145); TOTAL PROTEIN 8.2 g/dL (6.3-8.2)
[2018-08-15] MEDS: DULOXETINE HCL 30 MG CAPSULE.DR PO SCH (09:50)
[2018-08-15] MEDS: BUSPIRONE HCL 10 MG TABLET PO SCH ×2 (09:50→18:27)
[2018-08-15] MEDS: PROPRANOLOL HCL 20 MG TABLET PO SCH ×2 (09:50→22:17)
[2018-08-15] MEDS: AMLODIPINE BESYLATE 10 MG TABLET PO SCH (09:51)
[2018-08-15] MEDS: BENZTROPINE MESYLATE 1 MG TABLET PO SCH (09:51)
[2018-08-15] MEDS: OLANZAPINE 5 MG TABLET PO SCH ×2 (09:51→18:27)
[2018-08-15] MEDS: ROPINIROLE HCL 1 MG TABLET PO SCH ×2 (09:51→22:17)
[2018-08-15] MEDS: POLYETHYLENE GLYCOL 3350 POWDER 17 GM/1 PACKET PO SCH (09:52)
[2018-08-15] MEDS: NICOTINE 21 MG/24 HR PATCH.TD24 TD SCH (09:52)
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
--- NOTE | 2018-08-15 14:10 | PSYCHOLOGICAL NOTE ---
Psych Note - Psych Note Date seen by psych provider: 08/15/18 Time seen by psych provider: 13:50 Psych Note: Psych not consulted but attending nurse and daughter outside room. Daughter with concerns for all the medications patient is on. She continued to hallucinate per attending nurse. Seeing things on the wall, there's been a baby for the last couple weeks. She tried to take her IV out. Lots of redirection required. Reviewed chart with Dr. Mayer who saw patient on 07/30/18. 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 Leti MD., includes: Too much Dopamine concern Discontinue Seroquel 25MG at night Discontinue Cymbalta 60MG twice a day Discontinue Ativan 2MG IV every tow hours as needed Discontinue Valium 20MG every 6 hours (last dose 07/17/18 at 0615) Should stick to recommendations from 07/30/18 psych evaluation: 1. Zyprexa 5 mg twice per day for mood stabilization/impulse control 2. Buspar 10 mg twice per day for anxiety/calming effect/act as anxiolytic without addictive nature of benzo/depression/sleep 3. Cogentin 1 mg daily to curb tremor side effects often associated with antipsychotic medications Impression/Plan: Patient is still cleared from acute psychiatric services. Recommendation is for her to go to recovery or [facility] (half-way [facility] treatment programs) once she can engage in sessions and treatment. Consulted with Dr. Mayer regarding the management and care of patient.
[2018-08-16] MEDS: GABAPENTIN 400 MG CAPSULE PO SCH ×3 (05:58→21:17)
[2018-08-16] MEDS: THIAMINE HCL 100 MG TABLET PO SCH ×3 (05:58→21:20)
[2018-08-16] MEDS: HEPARIN SOD (PORCINE) 5,000 UNIT/ML 1 ML SYRINGE SUBCUT SCH ×3 (05:59→21:17)
[2018-08-16] MEDS: BUSPIRONE HCL 10 MG TABLET PO SCH ×2 (11:23→17:38)
[2018-08-16] MEDS: BENZTROPINE MESYLATE 1 MG TABLET PO SCH (11:23)
[2018-08-16] MEDS: AMLODIPINE BESYLATE 10 MG TABLET PO SCH (11:23)
[2018-08-16] MEDS: PROPRANOLOL HCL 20 MG TABLET PO SCH ×2 (11:24→21:08)
[2018-08-16] MEDS: OLANZAPINE 5 MG TABLET PO SCH (11:24)
[2018-08-16] MEDS: ROPINIROLE HCL 1 MG TABLET PO SCH (11:25)
[2018-08-16] MEDS: POLYETHYLENE GLYCOL 3350 POWDER 17 GM/1 PACKET PO SCH (11:25)
[2018-08-16] MEDS: HYDROXYZINE PAMOATE 25 MG CAPSULE PO SCH ×4 (11:25→21:21)
[2018-08-16] MEDS: NICOTINE 21 MG/24 HR PATCH.TD24 TD SCH (11:26)
[2018-08-16] MEDS: HALOPERIDOL LACTATE INJ 5 MG/1 ML VIAL IV PRN ×2 (15:20→21:06)
[2018-08-16] MEDS ORDERED: LORAZEPAM INJ 2 MG/1 ML VIAL ONE (17:02)
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
[2018-08-16] MEDS: LORAZEPAM INJ 2 MG/1 ML VIAL IV PRN (18:34)
[2018-08-16] MEDS ORDERED: CHLORPROMAZINE HCL INJ 25 MG/1 ML AMPULE IV PRN (18:50)
--- NOTE | 2018-08-16 18:50 | PDOC PROGRESS REPORT ---
Subjective Progress Note for:: 08/16/18 Subjective:: This is a 57 years old female patient with past medical history of depression and alcohol abuse who was brought by EMS for being suicidal and alcohol intoxication. She was initially IVCed which was subsequently rescinded. Her stay has been prolonged due to waxing and waning but persistent hallucination and agitations. Per RN, she had an episode of agitation again last night. This morning, she did admit to hearing the voice of her mother yesterday. She also admits to seeing giraffes and an old woman in the room. Denies suicidal or homicidal ideation. Discussed with Dr. Mayer, appreciate recommendations and possible need for inpatient psych placement. She is medically cleared from hospitalist standpoint for transfer to inpatient psych. Reason For Visit: PANCREATITIS, ETOH INTOXICATION Physical Exam Vital Signs: Temp Pulse Resp BP Pulse Ox 97.5 F 98 16 140/80 H 92 08/16/18 11:11 08/16/18 15:28 08/16/18 07:45 08/16/18 15:28 08/16/18 15:28 Intake & Output 08/15/18 08/16/18 08/17/18 06:59 06:59 06:59 Intake Total 956 360 Output Total 750 500 Balance 206 -140 Weight 143 lb 1.28 oz 140 lb 3.424 oz General appearance: PRESENT: no acute distress, well-developed, well-nourished Head exam: PRESENT: atraumatic, normocephalic Eye exam: PRESENT: conjunctiva pink, EOMI, PERRLA. ABSENT: scleral icterus Ear exam: PRESENT: normal external ear exam Mouth exam: PRESENT: moist, tongue midline Neck exam: ABSENT: carotid bruit, JVD, lymphadenopathy, thyromegaly Respiratory exam: PRESENT: clear to auscultation jose. ABSENT: rales, rhonchi, wheezes Cardiovascular exam: PRESENT: RRR. ABSENT: diastolic murmur, rubs, systolic murmur Pulses: PRESENT: normal dorsalis pedis pul GI/Abdominal exam: PRESENT: normal bowel sounds, soft. ABSENT: distended, guarding, mass, organolmegaly, rebound, tenderness Rectal exam: PRESENT: deferred Neurological exam: PRESENT: alert, awake, oriented to person, CN II-XII grossly intact. ABSENT: motor sensory deficit Psychiatric exam: PRESENT: other - She also admits to seeing giraffes and an old woman in the room. Denies suicidal or homicidal ideation. Results Laboratory Results: 08/15/18 05:43 08/15/18 08:35 07/29/18 11:47 Troponin I < 0.012 Impressions: Abdomen/Pelvis CT 07/29/18 11:42 IMPRESSION: Fatty liver Gallstones Peripancreatic retroperitoneal inflammation, question pancreatitis Cervical Spine CT 07/29/18 11:42 IMPRESSION: CHRONIC DEGENERATIVE CHANGES. NO ACUTE FINDINGS. Similar left thyroid nodule with calcifications. Chest CT 07/29/18 11:42 IMPRESSION: No acute changes Head CT 07/29/18 11:42 IMPRESSION: No acute intracranial findings. EVIDENCE OF ACUTE STROKE: NO. Assessment and Plan - Diagnosis (1) Acute kidney failure Is this a current diagnosis for this admission?: Yes Plan: Resolved with IV fluids. (2) Psychosis Is this a current diagnosis for this admission?: Yes Plan: Discussed with Dr. Mayer. Will switch Zyprexa to PO Haldol. DC ropinirole. Will also add prn thorazine. - Time Time Spent with patient: 25-34 minutes
[2018-08-16] MEDS: QUETIAPINE FUMARATE 25 MG TABLET PO SCH (21:09)
[2018-08-16] MEDS: HALOPERIDOL 5 MG TABLET PO SCH (21:18)
[2018-08-17] MEDS: THIAMINE HCL 100 MG TABLET PO SCH ×3 (06:35→23:32)
[2018-08-17] MEDS: GABAPENTIN 400 MG CAPSULE PO SCH ×3 (06:35→23:31)
[2018-08-17] MEDS: HEPARIN SOD (PORCINE) 5,000 UNIT/ML 1 ML SYRINGE SUBCUT SCH ×4 (06:36→23:33)
[2018-08-17] MEDS ORDERED: QUETIAPINE FUMARATE 25 MG TABLET PO ONE (09:00)
[2018-08-17] MEDS: NICOTINE 21 MG/24 HR PATCH.TD24 TD SCH (09:20)
[2018-08-17] MEDS: AMLODIPINE BESYLATE 10 MG TABLET PO SCH (09:21)
[2018-08-17] MEDS: HYDROXYZINE PAMOATE 25 MG CAPSULE PO SCH ×4 (09:21→23:32)
[2018-08-17] MEDS: POLYETHYLENE GLYCOL 3350 POWDER 17 GM/1 PACKET PO SCH (09:21)
[2018-08-17] MEDS: HALOPERIDOL 5 MG TABLET PO SCH ×2 (09:21→23:30)
[2018-08-17] MEDS: BENZTROPINE MESYLATE 1 MG TABLET PO SCH (09:21)
[2018-08-17] MEDS: PROPRANOLOL HCL 20 MG TABLET PO SCH ×2 (09:21→23:31)
[2018-08-17] MEDS: BUSPIRONE HCL 10 MG TABLET PO SCH ×2 (09:21→16:59)
[2018-08-17] MEDS: QUETIAPINE FUMARATE 25 MG TABLET PO SCH ×2 (09:22→23:31)
--- NOTE | 2018-08-17 14:08 | PDOC PROGRESS REPORT ---
Subjective Progress Note for:: 08/17/18 Subjective:: This is a 57 years old female patient with past medical history of depression and alcohol abuse who was brought by EMS for being suicidal and alcohol intoxication. She was initially IVCed which was subsequently rescinded. Her stay has been prolonged due to waxing and waning but persistent hallucination and agitations. 08/16: Per RN, she had an episode of agitation again last night. This morning, she did admit to hearing the voice of her mother yesterday. She also admits to seeing giraffes and an old woman in the room. Denies suicidal or ho micidal ideation. Discussed with Dr. Mayer, appreciate recommendations and possible need for inpatient psych placement. She is medically cleared from hospitalist standpoint for transfer to inpatient psych. 08/17: Patient slept better last night per RN although she still had episodes of restlessness this morning. Awaiting inpatient psych placement. Discussed with daughter on bedside and updated on patient status. She reiterates her mother has a long standing history of depression and suicidal ideations in the past on top of her chronic alcoholism. Discussed her waxing and waning agitation and occasional hallucinations are likely multifactorial from her pysch issues and possible chronic cognitive effects of heavy alcoholism. Daughter did say that they were recommended to follow up and see a neuropsychologist outpatient but that it has been extremely difficult for patient to follow through these recommendations due to her behavioral issues. Reason For Visit: PANCREATITIS, ETOH INTOXICATION Physical Exam Vital Signs: Temp Pulse Resp BP Pulse Ox 97.8 F 83 18 125/77 93 08/17/18 08:02 08/17/18 11:07 08/17/18 11:07 08/17/18 11:07 08/17/18 11:07 Intake & Output 08/16/18 08/17/18 08/18/18 06:59 06:59 06:59 Intake Total 360 Output Total 500 Balance -140 Weight 140 lb 3.424 oz 135 lb 2.294 oz General appearance: PRESENT: no acute distress, well-developed, well-nourished Head exam: PRESENT: atraumatic, normocephalic Eye exam: PRESENT: conjunctiva pink, EOMI, PERRLA. ABSENT: scleral icterus Ear exam: PRESENT: normal external ear exam Mouth exam: PRESENT: moist, tongue midline Neck exam: ABSENT: carotid bruit, JVD, lymphadenopathy, thyromegaly Respiratory exam: PRESENT: clear to auscultation jose. ABSENT: rales, rhonchi, wheezes Cardiovascular exam: PRESENT: RRR. ABSENT: diastolic murmur, rubs, systolic murmur Pulses: PRESENT: normal dorsalis pedis pul GI/Abdominal exam: PRESENT: normal bowel sounds, soft. ABSENT: distended, guarding, mass, organolmegaly, rebound, tenderness Rectal exam: PRESENT: deferred Neurological exam: PRESENT: alert, oriented to person, CN II-XII grossly intact. ABSENT: motor sensory deficit Psychiatric exam: PRESENT: agitated Results Laboratory Results: 08/15/18 05:43 08/15/18 08:35 07/29/18 11:47 Troponin I < 0.012 Impressions: Abdomen/Pelvis CT 07/29/18 11:42 IMPRESSION: Fatty liver Gallstones Peripancreatic retroperitoneal inflammation, question pancreatitis Cervical Spine CT 07/29/18 11:42 IMPRESSION: CHRONIC DEGENERATIVE CHANGES. NO ACUTE FINDINGS. Similar left thyroid nodule with calcifications. Chest CT 07/29/18 11:42 IMPRESSION: No acute changes Head CT 07/29/18 11:42 IMPRESSION: No acute intracranial findings. EVIDENCE OF ACUTE STROKE: NO. Assessment and Plan - Diagnosis (1) Acute kidney failure Is this a current diagnosis for this admission?: Yes Plan: Resolved with IV fluids. (2) Psychosis Is this a current diagnosis for this admission?: Yes Plan: Discussed with Dr. Mayer. Will switch Zyprexa to PO Haldol. DC ropinirole. Will also add prn thorazine. 08/16: Per RN, she had an episode of agitation again last night. This morning, she did admit to hearing the voice of her mother yesterday. She also admits to seeing giraffes and an old woman in the room. Denies suicidal or homicidal ideation. Discussed with Dr. Mayer, appreciate recommendations and possible need for inpatient psych placement. She is medically cleared from hospitalist standpoint for transfer to inpatient psych. 08/17: Patient slept better last night per RN although she still had episodes of restlessness this morning. Awaiting inpatient psych placement. Discussed with daughter on bedside and updated on patient status. She reiterates her mother has a long standing history of depression and suicidal ideations in the past on top of her chronic alcoholism. Discussed her waxing and waning agitation and occasional hallucinations are likely multifactorial from her pysch issues and possible chronic cognitive effects of heavy alcoholism. Daughter did say that they were recommended to follow up and see a neuropsychologist outpatient but that it has been extremely difficult for patient to follow through these r ecommendations due to her behavioral issues. (3) Alcohol withdrawal Is this a current diagnosis for this admission?: Yes Plan: Resolved. - Time Time Spent with patient: 25-34 minutes
[2018-08-17] MEDS: LORAZEPAM INJ 2 MG/1 ML VIAL IV PRN ×2 (15:32→19:50)
[2018-08-17 15:47] LABS: ABSOLUTE BASOPHILS # (AUTO) 0.1 10^3/uL (0.0-0.2); ABSOLUTE EOSINOPHILS # (AUTO) 0.6 10^3/uL (0.0-0.6); ABSOLUTE LYMPHOCYTES (AUTO) 1.8 10^3/uL (0.5-4.7); ABSOLUTE MONOCYTES (AUTO) 0.7 10^3/uL (0.1-1.4); ABSOLUTE NEUT (AUTO) 6.6 10^3/uL (1.7-8.2); BASOPHILS % (AUTO) 1.3 % (0-2); EOSINOPHILS % (AUTO) 6.6 % (0-6); HEMATOCRIT 42.4 % (36.0-47.0); HEMOGLOBIN 14.6 g/dL (12.0-15.5); LYMPHOCYTES % (AUTO) 18.1 % (13-45); MEAN CORPUSCULAR HEMOGLOBIN 30.9 pg (27.0-33.4); MEAN CORPUSCULAR HGB CONC 34.4 g/dL (32.0-36.0); MEAN CORPUSCULAR VOLUME 90 fl (80-97); MONOCYTES % (AUTO) 6.9 % (3-13); PLATELET COUNT 374 10^3/uL (150-450); RED BLOOD COUNT 4.72 10^6/uL (3.72-5.28); RED CELL DISTRIBUTION WIDTH 14.9 % (11.5-14.0); SEGMENTED NEUTROPHILS % (AUTO) 67.1 % (42-78); TOTAL CELLS COUNTED % (AUTO) 100 %; WHITE BLOOD COUNT 9.8 10^3/uL (4.0-10.5)
[2018-08-17 16:14] LABS: ANION GAP 10 (5-19); BLOOD UREA NITROGEN 14 mg/dL (7-20); CALCIUM 10.8 mg/dL (8.4-10.2); CARBON DIOXIDE 31 mmol/L (22-30); CHLORIDE 98 mmol/L (98-107); GLUCOSE 112 mg/dL (75-110); POTASSIUM 4.5 mmol/L (3.6-5.0); SODIUM 139.1 mmol/L (137-145)
[2018-08-17] MEDS: HALOPERIDOL LACTATE INJ 5 MG/1 ML VIAL IV PRN (19:50)
[2018-08-18] MEDS: LORAZEPAM INJ 2 MG/1 ML VIAL IV PRN ×4 (04:04→18:51)
[2018-08-18] MEDS: HALOPERIDOL LACTATE INJ 5 MG/1 ML VIAL IV PRN (04:04)
[2018-08-18] MEDS: GABAPENTIN 400 MG CAPSULE PO SCH ×3 (05:28→21:37)
[2018-08-18] MEDS: HEPARIN SOD (PORCINE) 5,000 UNIT/ML 1 ML SYRINGE SUBCUT SCH ×3 (05:28→21:31)
[2018-08-18] MEDS: THIAMINE HCL 100 MG TABLET PO SCH ×3 (06:00→21:38)
[2018-08-18 06:07] LABS: ABSOLUTE BASOPHILS # (AUTO) 0.1 10^3/uL (0.0-0.2); ABSOLUTE EOSINOPHILS # (AUTO) 0.5 10^3/uL (0.0-0.6); ABSOLUTE LYMPHOCYTES (AUTO) 1.7 10^3/uL (0.5-4.7); ABSOLUTE MONOCYTES (AUTO) 0.5 10^3/uL (0.1-1.4); ABSOLUTE NEUT (AUTO) 4.4 10^3/uL (1.7-8.2); BASOPHILS % (AUTO) 1.4 % (0-2); EOSINOPHILS % (AUTO) 7.2 % (0-6); HEMATOCRIT 43.8 % (36.0-47.0); HEMOGLOBIN 14.8 g/dL (12.0-15.5); LYMPHOCYTES % (AUTO) 23.7 % (13-45); MEAN CORPUSCULAR HEMOGLOBIN 30.4 pg (27.0-33.4); MEAN CORPUSCULAR HGB CONC 33.8 g/dL (32.0-36.0); MEAN CORPUSCULAR VOLUME 90 fl (80-97); PLATELET COUNT 300 10^3/uL (150-450); RED BLOOD COUNT 4.88 10^6/uL (3.72-5.28); RED CELL DISTRIBUTION WIDTH 14.8 % (11.5-14.0); SEGMENTED NEUTROPHILS % (AUTO) 60.7 % (42-78); TOTAL CELLS COUNTED % (AUTO) 100 %; WHITE BLOOD COUNT 7.3 10^3/uL (4.0-10.5)
[2018-08-18 06:25] LABS: ALANINE AMINOTRANSFERASE 16 U/L (9-52); ALBUMIN 4.1 g/dL (3.5-5.0); ALKALINE PHOSPHATASE 131 U/L (38-126); ANION GAP 12 (5-19); ASPARTATE AMINO TRANSFERASE 33 U/L (14-36); BILIRUBIN,DIRECT 0.4 mg/dL (0.0-0.4); BILIRUBIN,TOTAL 0.5 mg/dL (0.2-1.3); BLOOD UREA NITROGEN 17 mg/dL (7-20); CALCIUM 10.1 mg/dL (8.4-10.2); CARBON DIOXIDE 28 mmol/L (22-30); CHLORIDE 97 mmol/L (98-107); GLUCOSE 148 mg/dL (75-110); SODIUM 137.2 mmol/L (137-145); TOTAL PROTEIN 8.3 g/dL (6.3-8.2)
[2018-08-18] MEDS ORDERED: BENZOCAINE/MENTHOL SORE THROAT LOZENGE BUCCAL PRN (09:57)
[2018-08-18] MEDS: HALOPERIDOL 5 MG TABLET PO SCH ×2 (11:14→21:37)
[2018-08-18] MEDS: HYDROXYZINE PAMOATE 25 MG CAPSULE PO SCH ×4 (11:15→21:37)
[2018-08-18] MEDS: FOLIC ACID 1 MG TABLET PO SCH (11:15)
[2018-08-18] MEDS: AMLODIPINE BESYLATE 10 MG TABLET PO SCH (11:17)
[2018-08-18] MEDS: BENZTROPINE MESYLATE 1 MG TABLET PO SCH (11:17)
[2018-08-18] MEDS: PROPRANOLOL HCL 20 MG TABLET PO SCH ×2 (11:17→21:37)
[2018-08-18] MEDS: NICOTINE 21 MG/24 HR PATCH.TD24 TD SCH (11:18)
[2018-08-18] MEDS: BUSPIRONE HCL 10 MG TABLET PO SCH ×2 (11:18→18:51)
[2018-08-18] MEDS: POLYETHYLENE GLYCOL 3350 POWDER 17 GM/1 PACKET PO SCH (11:19)
[2018-08-18] MEDS: QUETIAPINE FUMARATE 25 MG TABLET PO SCH ×2 (11:23→21:38)
--- NOTE | 2018-08-18 13:06 | PSYCHOLOGICAL NOTE ---
Psych Note - Psych Note Date seen by psych provider: 08/17/18 Time seen by psych provider: 14:29 - Phone discussion with nurse at 1238. Observation of patient at 1428. Collateral and discussion with daughter from [id number]. Psych Note: Reason for Consult: Continued Hallucinations and psychosis Contact Permissions: Daughter Tracy Zayas Patient is a 57 year old female who presented to the ED 07/29/18 via EMS for SI after being found inn household. Attending ED Physician documented patient smelled like alcohol, was acutely intoxicated, had self inflicted wounds to her right wrist which she reported she had done 3 days prior. She was put on 24 Hour IVC Petition. She was subsequently admitted same day to hospitalist services for acute alcohol intoxication, alcohol dependence continuous, hyponatremia, pancreatitis and suicidal attempt. She was seen by MH in the ED on 07/29/18 which is when the 24 hour IVC Petition was put in place. She was seen 07/30/18 where she denied SI attempt, admitted to previous attempt 5 years ago by shooting self in abdomen, admitted to drinking 10 beers a day which started a few years ago, medication changes/recommendations were provided (Zyprexa, Cogentin, Buspar), she said she was willing to go to [facility] and was psychiatrically cleared. Spoke to attending nurse at 1238. She called to inform Behavioral Health daughter was onsite and wanted to speak with the clinician in person. She reported patient was removed from restraints at 1130, which were in place only for preventing patient from pulling out IVs and trying to get up out of bed (safety/nonviolent). She further stated patient was not writhing around in bed, the morning medication administration seemed to help with that, she had been relatively calm today and she slept all night. Observed patient sleeping in bed, out of restraints and actually resting (lying still). Spent an hour with daughter in the 3rd floor waiting area. She provided collateral information. She was made aware of what was going on in terms of treatment, IVC process, short term acute placement and what that entails. She was psychoeducated on alcoholism, what Wernicke's Syndrome is, how that can be diagnosed officially via neurology with things like MRIs and neuropsychological testing, and how patient may require several months of rehabilitation before she gets to her previous baseline or a new baseline. Daughter reported the sitter told her patient ate the majority of her breakfast which was the first in while per daughter. She reported patient "was actually sleeping today, doing better than previous days, still had hallucinations (saying she was going to see her baby) and she was able to keep patient in the bed without her becoming agitated." She reported "in being around my mother this hospital visit it seemed as if her left and right functioning was crossed." She identified 5years ago patient had a suicide attempt, and MRI was done then and she was informed the results suggested frontal lobe deterioration. She stated patient has been to [facility] for alcohol detox/rehab 5 times, gets stabilized for a little while/comes back home/then relapses, the most recent was March 2018 when she came to [facility] then had to go to [place] then to [facility] due to seizures and then once at [facility] had to go to [facility] again for seizures. She spent 5-6 weeks in treatment at that Mar 2018 visit, still had "residual effects from alcohol wi thdrawal, [facility] felt like there could be Wernicke's Syndrome and recommended a neuropsych evaluation." She acknowledged patient saw Dr. Dacosta for medication management, was prescribed Valium, abused the Valium and "it seemed to do the same thing drinking does for my mom." She noted it did help with patient's anxiety, she built up a high tolerance, "which she seems to do with most medications." She noted in April 2018 up until the past couple weeks patient "slept a lot and was not taking care of herself (even sober)." She described patient as "exhibiting a lot of Bipolar Symptoms such as mood swings, ups and downs, irritability for the past year or so." She identified patient "had been on the Requip intermediate card tender and she cannot sleep without it." She noted patient "was on Seroquel at home but took it all at once at night." She acknowledged "short term memory issues and forgetting things long before previous alcohol treatment in March 2018." Daughter identified she reached out to [facility] [address], spoke to [place], treatment is 30-45 days, it is not a locked down facility, there are 3 different levels of care, but he stated she would have to have the neurological testing and diagnosis prior to going as they are not equipped to conduct such evaluation/testing. She was made aware this would be true of many facilities and treatment programs and often is done on an outpatient level. She was informed the type of placement the [facility] Behavioral Health team does is acute or short term psychiatric which is mainly medication management. 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 Leti MD., includes: Continue with what is in place given patient had some improvements (slept through the night last night, is able to sleep in bed peacefully without writhing around) Impression/Plan: Recommendation to maintain IVC given medication changes just took place 08/16/18 and 08/15/18 and today has been her best day thus far. Attending Hospitalist informed Behavioral Health Compressor House Operator patient was medically cleared, was asked to provide documentation saying such, informed that IVs would prevent patient from getting accepted since that would indicate not medically cleared from their standpoint and referral packet would be put together to start placement efforts. Consulted with Dr. Mayer regarding the management and care of patient.
--- NOTE | 2018-08-18 17:13 | PDOC PROGRESS REPORT ---
Subjective Progress Note for:: 08/18/18 Subjective:: This is a 57 years old female patient with past medical history of depression and alcohol abuse who was brought by EMS for being suicidal and alcohol intoxication. She was initially IVCed which was subsequently rescinded. Her stay has been prolonged due to waxing and waning but persistent hallucination and agitations. 08/16: Per RN, she had an episode of agitation again last night. This morning, she did admit to hearing the voice of her mother yesterday. She also admits to seeing giraffes and an old woman in the room. Denies suicidal or ho micidal ideation. Discussed with Dr. Mayer, appreciate recommendations and possible need for inpatient psych placement. She is medically cleared from hospitalist standpoint for transfer to inpatient psych. 08/17: Patient slept better last night per RN although she still had episodes of restlessness this morning. Awaiting inpatient psych placement. Discussed with daughter on bedside and updated on patient status. She reiterates her mother has a long standing history of depression and suicidal ideations in the past on top of her chronic alcoholism. Discussed her waxing and waning agitation and occasional hallucinations are likely multifactorial from her pysch issues and possible chronic cognitive effects of heavy alcoholism. Daughter did say that they were recommended to follow up and see a neuropsychologist outpatient but that it has been extremely difficult for patient to follow through these recommendations due to her behavioral issues. 08/18: Patient is less agitated today but still has restlessness. She has been free of restraints for more than 24 hrs now. She continues to report that she was hearing her grandmother's voice last night. She awaits inpatient psych placement. Reason For Visit: PANCREATITIS, ETOH INTOXICATION Physical Exam Vital Signs: Temp Pulse Resp BP Pulse Ox 97.6 F 121 H 17 108/78 95 08/18/18 07:51 08/18/18 07:51 08/18/18 07:51 08/18/18 07:51 08/18/18 07:51 Intake & Output 08/17/18 08/18/18 08/19/18 06:59 06:59 06:59 Intake Total 360 Balance 360 Weight 135 lb 2.294 oz 136 lb 3.931 oz General appearance: PRESENT: no acute distress, well-developed, well-nourished Head exam: PRESENT: atraumatic, normocephalic Eye exam: PRESENT: conjunctiva pink, EOMI, PERRLA. ABSENT: scleral icterus Ear exam: PRESENT: normal external ear exam Mouth exam: PRESENT: moist, tongue midline Neck exam: ABSENT: carotid bruit, JVD, lymphadenopathy, thyromegaly Respiratory exam: PRESENT: clear to auscultation jose. ABSENT: rales, rhonchi, wheezes Cardiovascular exam: PRESENT: RRR. ABSENT: diastolic murmur, rubs, systolic murmur Pulses: PRESENT: normal dorsalis pedis pul GI/Abdominal exam: PRESENT: normal bowel sounds, soft. ABSENT: distended, guarding, mass, organolmegaly, rebound, tenderness Rectal exam: PRESENT: deferred Neurological exam: PRESENT: alert, awake, oriented to person, CN II-XII grossly intact. ABSENT: motor sensory deficit Results Laboratory Results: 08/18/18 05:33 08/18/18 05:33 08/18/18 08/18/18 05:33 05:33 WBC 7.3 RBC 4.88 Hgb 14.8 Hct 43.8 MCV 90 MCH 30.4 MCHC 33.8 RDW 14.8 H Plt Count 300 Seg Neutrophils % 60.7 Lymphocytes % 23.7 Monocytes % 7.0 Eosinophils % 7.2 H Basophils % 1.4 Absolute Neutrophils 4.4 Absolute Lymphocytes 1.7 Absolute Monocytes 0.5 Absolute Eosinophils 0.5 Absolute Basophils 0.1 Sodium 137.2 Potassium 4.0 Chloride 97 L Carbon Dioxide 28 Anion Gap 12 BUN 17 Creatinine 0.78 Est GFR ( Amer) > 60 Est GFR (Non-Af Amer) > 60 Glucose 148 H Calcium 10.1 Total Bilirubin 0.5 AST 33 ALT 16 Alkaline Phosphatase 131 H Total Protein 8.3 H Albumin 4.1 07/29/18 11:47 Troponin I < 0.012 Impressions: Abdomen/Pelvis CT 07/29/18 11:42 IMPRESSION: Fatty liver Gallstones Peripancreatic retroperitoneal inflammation, question pancreatitis Cervical Spine CT 07/29/18 11:42 IMPRESSION: CHRONIC DEGENERATIVE CHANGES. NO ACUTE FINDINGS. Similar left thyroid nodule with calcifications. Chest CT 07/29/18 11:42 IMPRESSION: No acute changes Head CT 07/29/18 11:42 IMPRESSION: No acute intracranial findings. EVIDENCE OF ACUTE STROKE: NO. Assessment and Plan - Diagnosis (1) Psychosis Is this a current diagnosis for this admission?: Yes Plan: Discussed with Dr. Mayer. Will switch Zyprexa to PO Haldol. DC ropinirole. Will also add prn thorazine. 08/16: Per RN, she had an episode of agitation again last night. This morning, she did admit to hearing the voice of her mother yesterday. She also admits to seeing giraffes and an old woman in the room. Denies suicidal or homicidal ideation. Discussed with Dr. Mayer, appreciate recommendations and possible need for inpatient psych placement. She is medically cleared from hospitalist standpoint for transfer to inpatient psych. 08/17: Patient slept better last night per RN although she still had episodes of restlessness this morning. Awaiting inpatient psych placement. Discussed with daughter on bedside and updated on patient status. She reiterates her mother has a long standing history of depression and suicidal ideations in the past on top of her chronic alcoholism. Discussed her waxing and waning agitation and occasional hallucinations are likely multifactorial from her pysch issues and possible chronic cognitive effects of heavy alcoholism. Daughter did say that they were recommended to follow up and see a neuropsychologist outpatient but th at it has been extremely difficult for patient to follow through these recommendations due to her behavioral issues. 08/18: Patient is less agitated today but still has restlessness. She has been free of restraints for more than 24 hrs now. She continues to report that she was hearing her grandmother's voice last night. She awaits inpatient psych placement. (2) Acute kidney failure Is this a current diagnosis for this admission?: Yes Plan: Resolved with IV fluids. (3) Alcohol withdrawal Is this a current diagnosis for this admission?: Yes Plan: Resolved.
[2018-08-19] MEDS: LORAZEPAM INJ 2 MG/1 ML VIAL IV PRN ×3 (00:20→13:57)
[2018-08-19] MEDS: HEPARIN SOD (PORCINE) 5,000 UNIT/ML 1 ML SYRINGE SUBCUT SCH ×3 (05:13→21:34)
[2018-08-19] MEDS: GABAPENTIN 400 MG CAPSULE PO SCH ×3 (06:48→21:34)
[2018-08-19] MEDS: THIAMINE HCL 100 MG TABLET PO SCH ×3 (06:48→21:34)
[2018-08-19] MEDS: ONDANSETRON HCL INJ/PF 4 MG/2 ML SDV IV PRN (09:07)
[2018-08-19] MEDS: BENZTROPINE MESYLATE 1 MG TABLET PO SCH (10:03)
[2018-08-19] MEDS: HYDROXYZINE PAMOATE 25 MG CAPSULE PO SCH ×4 (10:03→23:40)
[2018-08-19] MEDS: FOLIC ACID 1 MG TABLET PO SCH (10:03)
[2018-08-19] MEDS: AMLODIPINE BESYLATE 10 MG TABLET PO SCH (10:03)
[2018-08-19] MEDS: BUSPIRONE HCL 10 MG TABLET PO SCH ×2 (10:03→19:33)
[2018-08-19] MEDS: HALOPERIDOL 5 MG TABLET PO SCH ×2 (10:04→21:34)
[2018-08-19] MEDS: POLYETHYLENE GLYCOL 3350 POWDER 17 GM/1 PACKET PO SCH (10:04)
[2018-08-19] MEDS: NICOTINE 21 MG/24 HR PATCH.TD24 TD SCH (10:11)
[2018-08-19] MEDS: PROPRANOLOL HCL 20 MG TABLET PO SCH ×2 (10:11→21:34)
[2018-08-19] MEDS: QUETIAPINE FUMARATE 25 MG TABLET PO SCH ×2 (10:12→21:34)
--- NOTE | 2018-08-19 15:03 | PSYCHOLOGICAL NOTE ---
Psych Note - Psych Note Date seen by psych provider: 08/19/18 Psych Note: Diagnoses: 303.1 (F33.20) Alcohol Use Disorder, Moderate 291.89 (F10.24) Alcohol Induced Depressive Disorder, Severe R/O Neurodegenerative issues as a result of senior living alcohol use Medication recommendations made by the psychiatric medical provider, Dr. Leti MD., includes: Discontinue Seroquel Discontinue Cymbalta Discontinue Ativan Discontinue Valium Discontinue Requip Discontinue Zyprexa Discontinue Visteral Continue Haldol 5mg twice daily Discontinue haldol 1mg every 4 hours as needed Increase Thorazine 50 mg every 8 hours as needed Decrease Buspar to 5mg twice daily Continue Cogentin 1 mg daily Add Clonidine 0.2 mg 12-hour patch Please note the recommendations that are not highlighted are reflected in the current MAR Attempts at finding inpatient psychiatric treatment has been unsuccessful due to the patient being unable to do her ADLs
--- NOTE | 2018-08-19 16:55 | PDOC PROGRESS REPORT ---
Subjective Progress Note for:: 08/19/18 Subjective:: This is a 57 years old female patient with past medical history of depression and alcohol abuse who was brought by EMS for being suicidal and alcohol intoxication. She was initially IVCed which was subsequently rescinded. Her stay has been prolonged due to waxing and waning but persistent hallucination and agitations. 08/16: Per RN, she had an episode of agitation again last night. This morning, she did admit to hearing the voice of her mother yesterday. She also admits to seeing giraffes and an old woman in the room. Denies suicidal or ho micidal ideation. Discussed with Dr. Mayer, appreciate recommendations and possible need for inpatient psych placement. She is medically cleared from hospitalist standpoint for transfer to inpatient psych. 08/17: Patient slept better last night per RN although she still had episodes of restlessness this morning. Awaiting inpatient psych placement. Discussed with daughter on bedside and updated on patient status. She reiterates her mother has a long standing history of depression and suicidal ideations in the past on top of her chronic alcoholism. Discussed her waxing and waning agitation and occasional hallucinations are likely multifactorial from her pysch issues and possible chronic cognitive effects of heavy alcoholism. Daughter did say that they were recommended to follow up and see a neuropsychologist outpatient but that it has been extremely difficult for patient to follow through these recommendations due to her behavioral issues. 08/18: Patient is less agitated today but still has restlessness. She has been free of restraints for more than 24 hrs now. She continues to report that she was hearing her grandmother's voice last night. She awaits inpatient psych placement. 08/19: No acute issue overnight. Patient has been less agitated. She is able to do feed herself and is also able to wash herself in the bathroom. She is awaiting inpatient psych placement. Reason For Visit: PANCREATITIS, ETOH INTOXICATION Physical Exam Vital Signs: Temp Pulse Resp BP Pulse Ox 98.3 F 120 H 17 132/74 H 83 L 08/19/18 06:33 08/19/18 06:33 08/19/18 06:33 08/19/18 06:33 08/19/18 06:33 Intake & Output 08/18/18 08/19/18 08/20/18 06:59 06:59 06:59 Intake Total 360 500 Balance 360 500 Weight 136 lb 3.931 oz 139 lb 8.842 oz General appearance: PRESENT: no acute distress, well-developed, well-nourished Head exam: PRESENT: atraumatic, normocephalic Eye exam: PRESENT: conjunctiva pink, EOMI, PERRLA. ABSENT: scleral icterus Ear exam: PRESENT: normal external ear exam Mouth exam: PRESENT: moist, tongue midline Neck exam: ABSENT: carotid bruit, JVD, lymphadenopathy, thyromegaly Respiratory exam: PRESENT: clear to auscultation jose. ABSENT: rales, rhonchi, wheezes Cardiovascular exam: PRESENT: RRR. ABSENT: diastolic murmur, rubs, systolic murmur Pulses: PRESENT: normal dorsalis pedis pul Vascular exam: PRESENT: normal capillary refill GI/Abdominal exam: PRESENT: normal bowel sounds, soft. ABSENT: distended, guarding, mass, organolmegaly, rebound, tenderness Rectal exam: PRESENT: deferred Neurological exam: PRESENT: alert, awake, oriented to person, oriented to place, oriented to time, oriented to situation, CN II-XII grossly intact. ABSENT: motor sensory deficit Results Laboratory Results: 08/18/18 05:33 08/18/18 05:33 07/29/18 11:47 Troponin I < 0.012 Impressions: Abdomen/Pelvis CT 07/29/18 11:42 IMPRESSION: Fatty liver Gallstones Peripancreatic retroperitoneal inflammation, question pancreatitis Cervical Spine CT 07/29/18 11:42 IMPRESSION: CHRONIC DEGENERATIVE CHANGES. NO ACUTE FINDINGS. Similar left thyroid nodule with calcifications. Chest CT 07/29/18 11:42 IMPRESSION: No acute changes Head CT 07/29/18 11:42 IMPRESSION: No acute intracranial findings. EVIDENCE OF ACUTE STROKE: NO. Assessment and Plan - Diagnosis (1) Psychosis Is this a current diagnosis for this admission?: Yes Plan: Discussed with Dr. Mayer. Will switch Zyprexa to PO Haldol. DC ropinirole. Will also add prn thorazine. 08/16: Per RN, she had an episode of agitation again last night. This morning, she did admit to hearing the voice of her mother yesterday. She also admits to seeing giraffes and an old woman in the room. Denies suicidal or homicidal ideation. Discussed with Dr. Mayer, appreciate recommendations and possible need for inpatient psych placement. She is medically cleared from hospitalist standpoint for transfer to inpatient psych. 08/17: Patient slept better last night per RN although she still had episodes of restlessness this morning. Awaiting inpatient psych placement. Discussed with daughter on bedside and updated on patient status. She reiterates her mother has a long standing history of depression and suicidal ideations in the past on top of her chronic alcoholism. Discussed her waxing and waning agitation and occasional hallucinations are likely multifactorial from her pysch issues and possible chronic cognitive effects of heavy alcoholism. Daughter did say that they were recommended to follow up and see a neuropsychologist outpatient but that it has been extremely difficult for patient to follow through these recommendations due to her behavioral issues. 08/18: Patient is less agitated today but still has restlessness. She has been free of restraints for more than 24 hrs now. She continues to report that she was hearing her grandmother's voice last night. She awaits inpatient psych pl acement. 08/19: No acute issue overnight. Patient has been less agitated. She is able to do feed herself and is also able to wash herself in the bathroom. She is awaiting inpatient psych placement. (2) Acute kidney failure Is this a current diagnosis for this admission?: Yes Plan: Resolved with IV fluids. (3) Alcohol withdrawal Is this a current diagnosis for this admission?: Yes Plan: Resolved. - Time Time Spent with patient: 15-24 minutes
[2018-08-20] MEDS: ONDANSETRON HCL INJ/PF 4 MG/2 ML SDV IV PRN (01:15)
[2018-08-20] MEDS: THIAMINE HCL 100 MG TABLET PO SCH ×3 (07:00→23:18)
[2018-08-20] MEDS: HEPARIN SOD (PORCINE) 5,000 UNIT/ML 1 ML SYRINGE SUBCUT SCH ×3 (07:27→23:16)
[2018-08-20] MEDS: GABAPENTIN 400 MG CAPSULE PO SCH ×3 (07:28→23:16)
[2018-08-20] MEDS: AMLODIPINE BESYLATE 10 MG TABLET PO SCH (09:26)
[2018-08-20] MEDS: NICOTINE 21 MG/24 HR PATCH.TD24 TD SCH (09:26)
[2018-08-20] MEDS: HALOPERIDOL 5 MG TABLET PO SCH ×2 (09:27→23:16)
[2018-08-20] MEDS: BUSPIRONE HCL 10 MG TABLET PO SCH ×2 (09:27→17:03)
[2018-08-20] MEDS: QUETIAPINE FUMARATE 25 MG TABLET PO SCH ×2 (09:27→23:17)
[2018-08-20] MEDS: PROPRANOLOL HCL 20 MG TABLET PO SCH ×2 (09:27→23:16)
[2018-08-20] MEDS: BENZTROPINE MESYLATE 1 MG TABLET PO SCH (09:27)
[2018-08-20] MEDS: POLYETHYLENE GLYCOL 3350 POWDER 17 GM/1 PACKET PO SCH (09:27)
[2018-08-20] MEDS: HYDROXYZINE PAMOATE 25 MG CAPSULE PO SCH ×4 (09:27→23:17)
[2018-08-20] MEDS: FOLIC ACID 1 MG TABLET PO SCH (09:27)
--- NOTE | 2018-08-20 17:00 | PDOC PROGRESS REPORT ---
Subjective Progress Note for:: 08/20/18 Subjective:: This is a 57 years old female patient with past medical history of depression and alcohol abuse who was brought by EMS for being suicidal and alcohol intoxication. She was initially IVCed which was subsequently rescinded. Her stay has been prolonged due to waxing and waning but persistent hallucination and agitations. 08/16: Per RN, she had an episode of agitation again last night. This morning, she did admit to hearing the voice of her mother yesterday. She also admits to seeing giraffes and an old woman in the room. Denies suicidal or ho micidal ideation. Discussed with Dr. Mayer, appreciate recommendations and possible need for inpatient psych placement. She is medically cleared from hospitalist standpoint for transfer to inpatient psych. 08/17: Patient slept better last night per RN although she still had episodes of restlessness this morning. Awaiting inpatient psych placement. Discussed with daughter on bedside and updated on patient status. She reiterates her mother has a long standing history of depression and suicidal ideations in the past on top of her chronic alcoholism. Discussed her waxing and waning agitation and occasional hallucinations are likely multifactorial from her pysch issues and possible chronic cognitive effects of heavy alcoholism. Daughter did say that they were recommended to follow up and see a neuropsychologist outpatient but that it has been extremely difficult for patient to follow through these recommendations due to her behavioral issues. 08/18: Patient is less agitated today but still has restlessness. She has been free of restraints for more than 24 hrs now. She continues to report that she was hearing her grandmother's voice last night. She awaits inpatient psych placement. 08/19: Patient has been less agitated. She is able to do feed herself and is also able to wash herself in the bathroom. 08/20: No acute issue overnight. She continues to be less restless and agitated a nd is capable of doing her ADLs. She does have occasional hallucinations. This morning, she says she was "trying to wake her sister up sleeping beside her". She is still awaiting inpatient psych placement. Reason For Visit: PANCREATITIS, ETOH INTOXICATION Physical Exam Vital Signs: Temp Pulse Resp BP Pulse Ox 98.6 F 92 16 103/55 L 97 08/20/18 16:00 08/20/18 16:00 08/20/18 16:00 08/20/18 16:00 08/20/18 16:00 Intake & Output 08/19/18 08/20/18 08/21/18 06:59 06:59 06:59 Intake Total 360 500 240 Balance 360 500 240 Weight 139 lb 8.842 oz 139 lb 1.787 oz General appearance: PRESENT: no acute distress, well-developed, well-nourished Head exam: PRESENT: atraumatic, normocephalic Eye exam: PRESENT: conjunctiva pink, EOMI, PERRLA. ABSENT: scleral icterus Ear exam: PRESENT: normal external ear exam Mouth exam: PRESENT: moist, tongue midline Neck exam: ABSENT: carotid bruit, JVD, lymphadenopathy, thyromegaly Respiratory exam: PRESENT: clear to auscultation jose. ABSENT: rales, rhonchi, wheezes Cardiovascular exam: PRESENT: RRR. ABSENT: diastolic murmur, rubs, systolic murmur Pulses: PRESENT: normal dorsalis pedis pul GI/Abdominal exam: PRESENT: normal bowel sounds, soft. ABSENT: distended, guarding, mass, organolmegaly, rebound, tenderness Rectal exam: PRESENT: deferred Neurological exam: PRESENT: alert, awake, oriented to person, oriented to place, oriented to time, oriented to situation, CN II-XII grossly intact. ABSENT: motor sensory deficit Results Laboratory Results: 08/18/18 05:33 08/18/18 05:33 07/29/18 11:47 Troponin I < 0.012 Impressions: Abdomen/Pelvis CT 07/29/18 11:42 IMPRESSION: Fatty liver Gallstones Peripancreatic retroperitoneal inflammation, question pancreatitis Cervical Spine CT 07/29/18 11:42 IMPRESSION: CHRONIC DEGENERATIVE CHANGES. NO ACUTE FINDINGS. Similar left thyroid nodule with calcifications. Chest CT 07/29/18 11:42 IMPRESSION: No acute changes Head CT 07/29/18 11:42 IMPRESSION: No acute intracranial findings. EVIDENCE OF ACUTE STROKE: NO. Assessment and Plan - Diagnosis (1) Psychosis Is this a current diagnosis for this admission?: Yes Plan: Discussed with Dr. Mayer. Will switch Zyprexa to PO Haldol. DC ropinirole. Wi ll also add prn thorazine. 08/16: Per RN, she had an episode of agitation again last night. This morning, she did admit to hearing the voice of her mother yesterday. She also admits to seeing giraffes and an old woman in the room. Denies suicidal or homicidal ideation. Discussed with Dr. Mayer, appreciate recommendations and possible need for inpatient psych placement. She is medically cleared from hospitalist standpoint for transfer to inpatient psych. 08/17: Patient slept better last night per RN although she still had episodes of restlessness this morning. Awaiting inpatient psych placement. Discussed with daughter on bedside and updated on patient status. She reiterates her mother has a long standing history of depression and suicidal ideations in the past on top of her chronic alcoholism. Discussed her waxing and waning agitation and occasional hallucinations are likely multifactorial from her pysch issues and possible chronic cognitive effects of heavy alcoholism. Daughter did say that they were recommended to follow up and see a neuropsychologist outpatient but that it has been extremely difficult for patient to follow through these recommendations due to her behavioral issues. 08/18: Patient is less agitated today but still has restlessness. She has been free of restraints for more than 24 hrs now. She continues to report that she was hearing her grandmother's voice last night. She awaits inpatient psych placement. 08/20: She continues to be less restless and agitated and is capable of doing her ADLs. She does have occasional hallucinations. This morning, she says she was "trying to wake her sister up sleeping beside her". She is still awaiting inpatient psych placement. (2) Acute kidney failure Is this a current diagnosis for this admission?: Yes Plan: Resolved with IV fluids. (3) Alcohol withdrawal Is this a current diagnosis for this admission?: Yes Plan: Resolved. - Time Time Spent with patient: 15-24 minutes
[2018-08-20] MEDS: ACETAMINOPHEN 325 MG TABLET PO PRN (17:03)
[2018-08-21] MEDS: HEPARIN SOD (PORCINE) 5,000 UNIT/ML 1 ML SYRINGE SUBCUT SCH ×3 (05:15→21:16)
[2018-08-21] MEDS: THIAMINE HCL 100 MG TABLET PO SCH ×3 (05:16→21:14)
[2018-08-21] MEDS: GABAPENTIN 400 MG CAPSULE PO SCH ×3 (05:16→21:14)
[2018-08-21] MEDS: LORAZEPAM INJ 2 MG/1 ML VIAL IV PRN (06:42)
[2018-08-21] MEDS: AMLODIPINE BESYLATE 10 MG TABLET PO SCH (09:05)
[2018-08-21] MEDS: POLYETHYLENE GLYCOL 3350 POWDER 17 GM/1 PACKET PO SCH (09:05)
[2018-08-21] MEDS: QUETIAPINE FUMARATE 25 MG TABLET PO SCH ×2 (09:05→21:14)
[2018-08-21] MEDS: BENZTROPINE MESYLATE 1 MG TABLET PO SCH (09:06)
[2018-08-21] MEDS: NICOTINE 21 MG/24 HR PATCH.TD24 TD SCH (09:06)
[2018-08-21] MEDS: BUSPIRONE HCL 10 MG TABLET PO SCH ×2 (09:06→17:05)
[2018-08-21] MEDS: HYDROXYZINE PAMOATE 25 MG CAPSULE PO SCH ×4 (09:06→21:14)
[2018-08-21] MEDS: HALOPERIDOL 5 MG TABLET PO SCH ×2 (09:06→21:14)
[2018-08-21] MEDS: FOLIC ACID 1 MG TABLET PO SCH (09:06)
[2018-08-21] MEDS: PROPRANOLOL HCL 20 MG TABLET PO SCH ×2 (09:06→21:14)
--- NOTE | 2018-08-21 12:04 | PDOC PROGRESS REPORT ---
Subjective Progress Note for:: 08/21/18 Subjective:: This is a 57 years old female patient with past medical history of depression and alcohol abuse who was brought by EMS for being suicidal and alcohol intoxication. She was initially IVCed which was subsequently rescinded. Her stay has been prolonged due to waxing and waning but persistent hallucination and agitations. 08/16: Per RN, she had an episode of agitation again last night. This morning, she did admit to hearing the voice of her mother yesterday. She also admits to seeing giraffes and an old woman in the room. Denies suicidal or ho micidal ideation. Discussed with Dr. Mayer, appreciate recommendations and possible need for inpatient psych placement. She is medically cleared from hospitalist standpoint for transfer to inpatient psych. 08/17: Patient slept better last night per RN although she still had episodes of restlessness this morning. Awaiting inpatient psych placement. Discussed with daughter on bedside and updated on patient status. She reiterates her mother has a long standing history of depression and suicidal ideations in the past on top of her chronic alcoholism. Discussed her waxing and waning agitation and occasional hallucinations are likely multifactorial from her pysch issues and possible chronic cognitive effects of heavy alcoholism. Daughter did say that they were recommended to follow up and see a neuropsychologist outpatient but that it has been extremely difficult for patient to follow through these recommendations due to her behavioral issues. 08/18: Patient is less agitated today but still has restlessness. She has been free of restraints for more than 24 hrs now. She continues to report that she was hearing her grandmother's voice last night. She awaits inpatient psych placement. 08/19: Patient has been less agitated. She is able to do feed herself and is also able to wash herself in the bathroom. 08/20: She continues to be less restless and agitated and is capable of doing her ADLs. She does have occasional hallucinations. This morning, she says she was "trying to wake her sister up sleeping beside her". 08/21: No acute issue overnight. No agitation overnight. She continues to do well but does have occasional episodes of being teary/crying and being emotional when talking about certain events in the past. She has been ambulating well on the hallway. She is still awaiting inpatient psych placement. Reason For Visit: PANCREATITIS, ETOH INTOXICATION Physical Exam Vital Signs: Temp Pulse Resp BP Pulse Ox 97.7 F 84 16 107/70 98 08/21/18 11:59 08/21/18 11:59 08/21/18 11:59 08/21/18 11:59 08/21/18 11:59 Intake & Output 08/20/18 08/21/18 08/22/18 06:59 06:59 06:59 Intake Total 500 1153 474 Balance 500 1153 474 Weight 139 lb 1.787 oz 140 lb 10.479 oz General appearance: PRESENT: no acute distress, well-developed, well-nourished Head exam: PRESENT: atraumatic, normocephalic Eye exam: PRESENT: conjunctiva pink, EOMI, PERRLA. ABSENT: scleral icterus Ear exam: PRESENT: normal external ear exam Mouth exam: PRESENT: moist, tongue midline Neck exam: ABSENT: carotid bruit, JVD, lymphadenopathy, thyromegaly Respiratory exam: PRESENT: clear to auscultation jose. ABSENT: rales, rhonchi, wheezes Cardiovascular exam: PRESENT: RRR. ABSENT: diastolic murmur, rubs, systolic murmur Pulses: PRESENT: normal dorsalis pedis pul GI/Abdominal exam: PRESENT: normal bowel sounds, soft. ABSENT: distended, guarding, mass, organolmegaly, rebound, tenderness Rectal exam: PRESENT: deferred Neurological exam: PRESENT: alert, awake, oriented to person, oriented to place, oriented to time, oriented to situation, CN II-XII grossly intact. ABSENT: motor sensory deficit Results Laboratory Results: 08/18/18 05:33 08/18/18 05:33 07/29/18 11:47 Troponin I < 0.012 Impressions: Abdomen/Pelvis CT 07/29/18 11:42 IMPRESSION: Fatty liver Gallstones Peripancreatic retroperitoneal inflammation, question pancreatitis Cervical Spine CT 07/29/18 11:42 IMPRESSION: CHRONIC DEGENERATIVE CHANGES. NO ACUTE FINDINGS. Similar left thyroid nodule with calcifications. Chest CT 07/29/18 11:42 IMPRESSION: No acute changes Head CT 07/29/18 11:42 IMPRESSION: No acute intracranial findings. EVIDENCE OF ACUTE STROKE: NO. Assessment and Plan - Diagnosis (1) Psychosis Is this a current diagnosis for this admission?: Yes Plan: Discussed with Dr. Mayer. Will switch Zyprexa to PO Haldol. DC ropinirole. Will also add prn thorazine. 08/16: Per RN, she had an episode of agitation again last night. This morning, she did admit to hearing the voice of her mother yesterday. She also admits to seeing giraffes and an old woman in the room. Denies suicidal or homicidal ideation. Discussed with Dr. Mayer, appreciate recommendations and possible need for inpatient psych placement. She is medically cleared from hospitalist standpoint for transfer to inpatient psych. 08/17: Patient slept better last night per RN although she still had episodes of restlessness this morning. Awaiting inpatient psych placement. Discussed with daughter on bedside and updated on patient status. She reiterates her mother has a long standing history of depression and suicidal ideations in the past on top of her chronic alcoholism. Discussed her waxing and waning agitation and occasional hallucinations are likely multifactorial from her pysch issues and possible chronic cognitive effects of heavy alcoholism. Daughter did say that they were recommended to follow up and see a neuropsychologist outpatient but that it has been extremely difficult for patient to follow through these recom mendations due to her behavioral issues. 08/18: Patient is less agitated today but still has restlessness. She has been free of restraints for more than 24 hrs now. She continues to report that she w as hearing her grandmother's voice last night. She awaits inpatient psych placement. 08/20: She continues to be less restless and agitated and is capable of doing her ADLs. She does have occasional hallucinations. This morning, she says she was "trying to wake her sister up sleeping beside her". She is still awaiting inpatient psych placement. 08/21: No agitation overnight. She continues to do well but does have occasional episodes of being teary/crying and being emotional when talking about certain events in the past. She has been ambulating well on the hallway. She is still awaiting inpatient psych placement. (2) Alcohol withdrawal Is this a current diagnosis for this admission?: Yes Plan: Resolved. (3) Acute kidney failure Is this a current diagnosis for this admission?: Yes Plan: Resolved with IV fluids. - Time Time Spent with patient: 15-24 minutes
[2018-08-21] MEDS: ACETAMINOPHEN 325 MG TABLET PO PRN (13:20)
--- NOTE | 2018-08-21 17:46 | PSYCHOLOGICAL NOTE ---
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 Leti MD., includes: Discontinue Seroquel Discontinue Cymbalta Discontinue Ativan Discontinue Valium Discontinue Requip Discontinue Zyprexa Discontinue Visteral Continue Haldol 5mg twice daily Discontinue haldol 1mg every 4 hours as needed Increase Thorazine 50 mg every 8 hours as needed Decrease Buspar to 5mg twice daily Continue Cogentin 1 mg daily Add Clonidine 0.2 mg 12-hour patch Please note the recommendations that are not highlighted are reflected in the current MAR Attempts at finding inpatient psychiatric treatment has been unsuccessful due to the patient being unable to do her ADLs unassisted (patient needs to be able to complete ADLs without assist devices ie walker, cane etc). Due to ongoing denials from multiple psychiatric facilities due to acuity, unable to complete unassisted ADLs, and the attending physician's preference to treatment patient with own prescribing protocol verse that of the consulting psychiatrist, the psychiatric team will no longer be involved in this case. Please re-consult when patient is more appropriate for psychiatric placement or the attending physician wishes to re-visit the consulting psychiatrist medication recommendations. was consulted on the care and management of this patient.
[2018-08-22] MEDS: LORAZEPAM INJ 2 MG/1 ML VIAL IV PRN (05:12)
[2018-08-22] MEDS: HEPARIN SOD (PORCINE) 5,000 UNIT/ML 1 ML SYRINGE SUBCUT SCH ×3 (05:13→22:55)
[2018-08-22] MEDS: GABAPENTIN 400 MG CAPSULE PO SCH ×3 (05:13→22:55)
[2018-08-22] MEDS: THIAMINE HCL 100 MG TABLET PO SCH (05:14)
[2018-08-22] MEDS: BENZTROPINE MESYLATE 1 MG TABLET PO SCH (09:11)
[2018-08-22] MEDS: BUSPIRONE HCL 10 MG TABLET PO SCH ×2 (09:11→17:21)
[2018-08-22] MEDS: FOLIC ACID 1 MG TABLET PO SCH (09:12)
[2018-08-22] MEDS: PROPRANOLOL HCL 20 MG TABLET PO SCH ×2 (09:12→22:55)
[2018-08-22] MEDS: HALOPERIDOL 5 MG TABLET PO SCH ×2 (09:12→22:55)
[2018-08-22] MEDS: POLYETHYLENE GLYCOL 3350 POWDER 17 GM/1 PACKET PO SCH (09:12)
[2018-08-22] MEDS: QUETIAPINE FUMARATE 25 MG TABLET PO SCH ×2 (09:13→22:55)
[2018-08-22] MEDS: NICOTINE 21 MG/24 HR PATCH.TD24 TD SCH (09:13)
[2018-08-22] MEDS: HYDROXYZINE PAMOATE 25 MG CAPSULE PO SCH ×4 (09:13→22:55)
[2018-08-22] MEDS: AMLODIPINE BESYLATE 10 MG TABLET PO SCH (09:13)
--- NOTE | 2018-08-22 16:38 | PDOC PROGRESS REPORT ---
Subjective Progress Note for:: 08/22/18 Subjective:: This is a 57 years old female patient with past medical history of depression and alcohol abuse who was brought by EMS for being suicidal and alcohol intoxication. She was initially IVCed which was subsequently rescinded. Her stay has been prolonged due to waxing and waning but persistent hallucination and agitations. 08/16: Per RN, she had an episode of agitation again last night. This morning, she did admit to hearing the voice of her mother yesterday. She also admits to seeing giraffes and an old woman in the room. Denies suicidal or ho micidal ideation. Discussed with Dr. Mayer, appreciate recommendations and possible need for inpatient psych placement. She is medically cleared from hospitalist standpoint for transfer to inpatient psych. 08/17: Patient slept better last night per RN although she still had episodes of restlessness this morning. Awaiting inpatient psych placement. Discussed with daughter on bedside and updated on patient status. She reiterates her mother has a long standing history of depression and suicidal ideations in the past on top of her chronic alcoholism. Discussed her waxing and waning agitation and occasional hallucinations are likely multifactorial from her pysch issues and possible chronic cognitive effects of heavy alcoholism. Daughter did say that they were recommended to follow up and see a neuropsychologist outpatient but that it has been extremely difficult for patient to follow through these recommendations due to her behavioral issues. 08/18: Patient is less agitated today but still has restlessness. She has been free of restraints for more than 24 hrs now. She continues to report that she was hearing her grandmother's voice last night. She awaits inpatient psych placement. 08/19: Patient has been less agitated. She is able to do feed herself and is also able to wash herself in the bathroom. 08/20: She continues to be less restless and agitated and is capable of doing her ADLs. She does have occasional hallucinations. This morning, she says she was "trying to wake her sister up sleeping beside her". 08/21: No agitation overnight. She continues to do well but does have occasional episodes of being teary/crying and being emotional when talking about certain events in the past. She has been ambulating well on the hallway. 08/22: No acute issue overnight. Discussed with John from psych yesterday afternoon. They have been having difficulty finding an inpatient psych facility for her but that they will try sending referrals again. She is still awaiting inpatient psych placement. Reason For Visit: PANCREATITIS, ETOH INTOXICATION Physical Exam Vital Signs: Temp Pulse Resp BP Pulse Ox 98.1 F 86 16 93/50 L 97 08/22/18 07:22 08/22/18 07:22 08/22/18 07:22 08/22/18 07:22 08/22/18 07:22 Intake & Output 08/21/18 08/22/18 08/23/18 06:59 06:59 06:59 Intake Total 1153 1046 650 Balance 1153 1046 650 Weight 140 lb 10.479 oz 139 lb 8.842 oz General appearance: PRESENT: no acute distress, well-developed, well-nourished Head exam: PRESENT: atraumatic, normocephalic Eye exam: PRESENT: conjunctiva pink, EOMI, PERRLA. ABSENT: scleral icterus Ear exam: PRESENT: normal external ear exam Mouth exam: PRESENT: moist, tongue midline Neck exam: ABSENT: carotid bruit, JVD, lymphadenopathy, thyromegaly Respiratory exam: PRESENT: clear to auscultation jose. ABSENT: rales, rhonchi, wheezes Cardiovascular exam: PRESENT: RRR. ABSENT: diastolic murmur, rubs, systolic murmur Pulses: PRESENT: normal dorsalis pedis pul GI/Abdominal exam: PRESENT: normal bowel sounds, soft. ABSENT: distended, guarding, mass, organolmegaly, rebound, tenderness Rectal exam: PRESENT: deferred Neurological exam: PRESENT: alert, awake, oriented to person, oriented to place, oriented to time, oriented to situation, CN II-XII grossly intact. ABSENT: motor sensory deficit Results Laboratory Results: 08/18/18 05:33 08/18/18 05:33 07/29/18 11:47 Troponin I < 0.012 Impressions: Abdomen/Pelvis CT 07/29/18 11:42 IMPRESSION: Fatty liver Gallstones Peripancreatic retroperitoneal inflammation, question pancreatitis Cervical Spine CT 07/29/18 11:42 IMPRESSION: CHRONIC DEGENERATIVE CHANGES. NO ACUTE FINDINGS. Similar left thyroid nodule with calcifications. Chest CT 07/29/18 11:42 IMPRESSION: No acute changes Head CT 07/29/18 11:42 IMPRESSION: No acute intracranial findings. EVIDENCE OF ACUTE STROKE: NO. Assessment and Plan - Diagnosis (1) Psychosis Is this a current diagnosis for this admission?: Yes Plan: Discussed with Dr. Mayer. Will switch Zyprexa to PO Haldol. DC ropinirole. Will also add prn thorazine. 08/16: Per RN, she had an episode of agitation again last night. This morning, she did admit to hearing the voice of her mother yesterday. She also admits to seeing giraffes and an old woman in the room. Denies suicidal or homicidal ideation. Discussed with Dr. Mayer, appreciate recommendations and possible need for inpatient psych placement. She is medically cleared from hospitalist standpoint for transfer to inpatient psych. 08/17: Patient slept better last night per RN although she still had episodes of restlessness this morning. Awaiting inpatient psych placement. Discussed with daughter on bedside and updated on patient status. She reiterates her mother has a long standing history of depression and suicidal ideations in the past on top of her chronic alcoholism. Discussed her waxing and waning agitation and occasional hallucinations are likely multifactorial from her pysch issues and possible chronic cognitive effects of heavy alcoholism. Daughter did say that they were recommended to follow up and see a neuropsychologist outpatient but that it has been extremely difficult for patient to follow through these recommendations due to her behavioral issues. 08/18: Patient is less agitated today but still has restlessness. She has been free of restraints for more than 24 hrs now. She continues to report that she was hearing her grandmother's voice last night. She awaits inpatient psych placement. 08/20: She continues to be less restless and agitated and is capable of doing her ADLs. She does have occasional hallucinations. This morning, she says she was "trying to wake her sister up sleeping beside her". She is still awaiting inpatient psych placement. 08/21: She continues to do well but does have occasional episodes of being teary/crying and being emotional when talking about certain events in the past. She has been ambulating well on the hallway. She is still awaiting inpatient psych placement. 08/22: No acute issue overnight. Discussed with John from psych yesterday afternoon. They have been having difficulty finding an inpatient psych facility for her but that they will try sending referrals again. She is still awaiting inpatient psych placement. (2) Alcohol withdrawal Is this a current diagnosis for this admission?: Yes Plan: Resolved. (3) Acute kidney failure Is this a current diagnosis for this admission?: Yes Plan: Resolved with IV fluids. - Time Time Spent with patient: 15-24 minutes
[2018-08-23] MEDS: HEPARIN SOD (PORCINE) 5,000 UNIT/ML 1 ML SYRINGE SUBCUT SCH ×3 (05:14→21:22)
[2018-08-23] MEDS: GABAPENTIN 400 MG CAPSULE PO SCH ×3 (06:34→21:15)
[2018-08-23] MEDS: BUSPIRONE HCL 10 MG TABLET PO SCH ×2 (09:02→16:28)
[2018-08-23] MEDS: FOLIC ACID 1 MG TABLET PO SCH (09:03)
[2018-08-23] MEDS: BENZTROPINE MESYLATE 1 MG TABLET PO SCH (09:03)
[2018-08-23] MEDS: POLYETHYLENE GLYCOL 3350 POWDER 17 GM/1 PACKET PO SCH (09:04)
[2018-08-23] MEDS: NICOTINE 21 MG/24 HR PATCH.TD24 TD SCH (09:04)
[2018-08-23] MEDS: PROPRANOLOL HCL 20 MG TABLET PO SCH ×2 (09:04→21:15)
[2018-08-23] MEDS: HALOPERIDOL 5 MG TABLET PO SCH ×2 (09:04→21:15)
[2018-08-23] MEDS: AMLODIPINE BESYLATE 10 MG TABLET PO SCH (09:05)
[2018-08-23] MEDS: THIAMINE HCL 100 MG TABLET PO SCH (09:05)
[2018-08-23] MEDS: QUETIAPINE FUMARATE 25 MG TABLET PO SCH ×2 (09:05→21:18)
[2018-08-23] MEDS: HYDROXYZINE PAMOATE 25 MG CAPSULE PO SCH ×4 (09:06→21:15)
--- NOTE | 2018-08-23 17:35 | PDOC PROGRESS REPORT ---
Subjective Progress Note for:: 08/23/18 Subjective:: Still having some intermittent hallucinations. Needs constant redirection by staff. Is able to ambulate independently without an assistive device or person to assist her. Reason For Visit: PANCREATITIS, ETOH INTOXICATION Physical Exam Vital Signs: Temp Pulse Resp BP Pulse Ox 98 F 73 18 99/63 L 100 08/23/18 11:27 08/23/18 11:27 08/23/18 11:27 08/23/18 11:27 08/23/18 11:27 Intake & Output 08/22/18 08/23/18 08/24/18 06:59 06:59 06:59 Intake Total 1046 1237 Balance 1046 1237 Weight 63.3 kg 61.8 kg General appearance: PRESENT: no acute distress, cooperative, disheveled Respiratory exam: PRESENT: clear to auscultation jose, symmetrical, unlabored. ABSENT: accessory muscle use, crackles, prolonged expiratory phas, rhonchi, tachypnea, wheezes Cardiovascular exam: PRESENT: RRR, +S1, +S2 Pulses: PRESENT: normal carotid pulses Vascular exam: PRESENT: normal capillary refill GI/Abdominal exam: PRESENT: normal bowel sounds, soft. ABSENT: distended, guarding, rebound, tenderness Extremities exam: ABSENT: clubbing, pedal edema Musculoskeletal exam: PRESENT: ambulatory, normal inspection. ABSENT: deformity Neurological exam: PRESENT: alert, awake, oriented to person, oriented to place Psychiatric exam: PRESENT: unusual affect Focused psych exam: PRESENT: delusional, restlessness Skin exam: PRESENT: dry, warm Results Laboratory Results: 08/18/18 05:33 08/18/18 05:33 07/29/18 11:47 Troponin I < 0.012 Impressions: Abdomen/Pelvis CT 07/29/18 11:42 IMPRESSION: Fatty liver Gallstones Peripancreatic retroperitoneal inflammation, question pancreatitis Cervical Spine CT 07/29/18 11:42 IMPRESSION: CHRONIC DEGENERATIVE CHANGES. NO ACUTE FINDINGS. Similar left thyroid nodule with calcifications. Chest CT 07/29/18 11:42 IMPRESSION: No acute changes Head CT 07/29/18 11:42 IMPRESSION: No acute intracranial findings. EVIDENCE OF ACUTE STROKE: NO. Assessment and Plan - Diagnosis (1) Alcohol withdrawal Qualifiers: Complication of substance-induced condition: with delirium Qualified Code(s): F10.231 - Alcohol dependence with withdrawal delirium Is this a current diagnosis for this admission?: Yes Plan: Resolved (2) Psychosis Qualifiers: Psychosis type: unspecified psychosis type Qualified Code(s): F29 - Uns pecified psychosis not due to a substance or known physiological condition Is this a current diagnosis for this admission?: Yes Plan: I have reconsulted psychiatry for their recommendations regarding the patient's medication regimen. Once those recommendations are made, will implement them. We will get their opinion regarding whether or not the patient still needs psychiatric placement. At this time the patient is able to perform her ADLs independently. - Time Time Spent with patient: 25-34 minutes
[2018-08-24] MEDS: HEPARIN SOD (PORCINE) 5,000 UNIT/ML 1 ML SYRINGE SUBCUT SCH ×3 (05:09→21:13)
[2018-08-24] MEDS: GABAPENTIN 400 MG CAPSULE PO SCH ×3 (06:10→21:17)
[2018-08-24] MEDS ORDERED: CHLORPROMAZINE HCL INJ 25 MG/1 ML AMPULE IV PRN (10:15)
[2018-08-24] MEDS: HALOPERIDOL 5 MG TABLET PO SCH ×2 (11:09→21:11)
[2018-08-24] MEDS: FOLIC ACID 1 MG TABLET PO SCH (11:10)
[2018-08-24] MEDS: NICOTINE 21 MG/24 HR PATCH.TD24 TD SCH (11:10)
[2018-08-24] MEDS: THIAMINE HCL 100 MG TABLET PO SCH (11:10)
[2018-08-24] MEDS: BENZTROPINE MESYLATE 1 MG TABLET PO SCH (11:10)
[2018-08-24] MEDS: POLYETHYLENE GLYCOL 3350 POWDER 17 GM/1 PACKET PO SCH (11:11)
[2018-08-24] MEDS: AMLODIPINE BESYLATE 10 MG TABLET PO SCH (11:18)
[2018-08-24] MEDS: BUSPIRONE HCL 10 MG TABLET PO SCH ×2 (11:19→17:34)
[2018-08-24] MEDS: QUETIAPINE FUMARATE 25 MG TABLET PO SCH (11:20)
[2018-08-24] MEDS: PROPRANOLOL HCL 20 MG TABLET PO SCH ×2 (11:20→21:16)
[2018-08-24] MEDS: HYDROXYZINE PAMOATE 25 MG CAPSULE PO SCH (11:20)
[2018-08-24] MEDS ORDERED: CLONIDINE 0.2 MG/24 HR PATCH.TDWK TD SCH (12:00)
--- NOTE | 2018-08-24 16:32 | PDOC PROGRESS REPORT ---
Subjective Progress Note for:: 08/24/18 Subjective:: Still having some intermittent hallucinations. Needs constant redirection by staff. Is able to ambulate independently without an assistive device or person to assist her. Her affect varies substantially from one moment to the next. Reason For Visit: PANCREATITIS, ETOH INTOXICATION Physical Exam Vital Signs: Temp Pulse Resp BP Pulse Ox 98.0 F 85 17 102/58 L 96 08/24/18 11:15 08/24/18 11:15 08/24/18 11:15 08/24/18 11:15 08/24/18 11:15 Intake & Output 08/23/18 08/24/18 08/25/18 06:59 06:59 06:59 Intake Total 1237 1454 Balance 1237 1454 Weight 61.8 kg 63.5 kg General appearance: PRESENT: no acute distress, cooperative, disheveled Respiratory exam: PRESENT: clear to auscultation jose, symmetrical, unlabored. ABSENT: accessory muscle use, crackles, prolonged expiratory phas, rhonchi, tachypnea, wheezes Cardiovascular exam: PRESENT: RRR, +S1, +S2 Pulses: PRESENT: normal carotid pulses Vascular exam: PRESENT: normal capillary refill GI/Abdominal exam: PRESENT: normal bowel sounds, soft. ABSENT: distended, guarding, rebound, tenderness Extremities exam: ABSENT: clubbing, pedal edema Musculoskeletal exam: PRESENT: ambulatory, normal inspection. ABSENT: deformity Neurological exam: PRESENT: alert, awake, oriented to person, oriented to place Psychiatric exam: PRESENT: unusual affect Focused psych exam: PRESENT: delusional, restlessness Skin exam: PRESENT: dry, warm Results Laboratory Results: 08/18/18 05:33 08/18/18 05:33 07/29/18 11:47 Troponin I < 0.012 Impressions: Abdomen/Pelvis CT 07/29/18 11:42 IMPRESSION: Fatty liver Gallstones Peripancreatic retroperitoneal inflammation, question pancreatitis Cervical Spine CT 07/29/18 11:42 IMPRESSION: CHRONIC DEGENERATIVE CHANGES. NO ACUTE FINDINGS. Similar left thyroid nodule with calcifications. Chest CT 07/29/18 11:42 IMPRESSION: No acute changes Head CT 07/29/18 11:42 IMPRESSION: No acute intracranial findings. EVIDENCE OF ACUTE STROKE: NO. Assessment and Plan - Diagnosis (1) Alcohol withdrawal Qualifiers: Complication of substance-induced condition: with delirium Qualified Code( s): F10.231 - Alcohol dependence with withdrawal delirium Is this a current diagnosis for this admission?: Yes Plan: Resolved (2) Psychosis Qualifiers: Psychosis type: unspecified psychosis type Qualified Code(s): F29 - Unspecified psychosis not due to a substance or known physiological condition Is this a current diagnosis for this admission?: Yes Plan: I have reconsulted psychiatry for their recommendations regarding the patient's medication regimen. Those recommendations are made, will implement them today. At this time the patient is able to perform her ADLs independently. - Time Time Spent with patient: 25-34 minutes
[2018-08-24] MEDS: ACETAMINOPHEN 325 MG TABLET PO PRN (17:36)
[2018-08-25] MEDS: HEPARIN SOD (PORCINE) 5,000 UNIT/ML 1 ML SYRINGE SUBCUT SCH ×3 (05:02→21:11)
[2018-08-25] MEDS: GABAPENTIN 400 MG CAPSULE PO SCH ×3 (05:03→21:08)
[2018-08-25] MEDS: BUSPIRONE HCL 10 MG TABLET PO SCH ×2 (10:57→17:27)
[2018-08-25] MEDS: THIAMINE HCL 100 MG TABLET PO SCH (10:57)
[2018-08-25] MEDS: BENZTROPINE MESYLATE 1 MG TABLET PO SCH (10:57)
[2018-08-25] MEDS: FOLIC ACID 1 MG TABLET PO SCH (10:57)
[2018-08-25] MEDS: PROPRANOLOL HCL 20 MG TABLET PO SCH ×2 (10:57→21:09)
[2018-08-25] MEDS: NICOTINE 21 MG/24 HR PATCH.TD24 TD SCH (10:58)
[2018-08-25] MEDS: HALOPERIDOL 5 MG TABLET PO SCH ×2 (10:58→21:08)
[2018-08-25] MEDS: AMLODIPINE BESYLATE 10 MG TABLET PO SCH (10:58)
[2018-08-25] MEDS: POLYETHYLENE GLYCOL 3350 POWDER 17 GM/1 PACKET PO SCH (10:58)
--- NOTE | 2018-08-25 11:29 | PSYCHOLOGICAL NOTE ---
Psych Note - Psych Note Date seen by psych provider: 08/24/18 Time seen by psych provider: 08:00 Psych Note: Reason for Consult: requested to re-visit with patient care Patient is very pleasant today and is able to engage in organized linear conversation with clinician. She reports that she knows she is at [facility] in [place] however believes that she is in the county of [facility]. Clinician notes patient lives in [facility] it would be well aware of the county is [place]. Patient was unable to correctly identify the the day and month as she believed it was currently still July however this is not surprising as the patient has been in the hospital over 3 weeks. She was able to identify the 2018 as the year and her birthday is 1960. Patient was able to correctly identify the current president. She was able to identify past presidents as "Erwin, Shaquille 2, Shaquille 1;" however, it is noted the patient was asked to list the last three presidents before President Sandrita. Patient is noted to have extreme difficulty with abstract rational level thinking and unable to answer any questions correctly. She was able to have immediate recall for memory however was unable to demonstrate any longer recall memory. Patient was able to correctly I demonstrate executive functioning, sequencing and switching questions. In addition patient was able to demonstrate problem solving and safety questions correctly. Patient reports she is able to conduct her ADLs on her own and has been observed by hospital staff eating, grooming, dressing herself and walking unassisted. Clinician spoke with attending nurses. They disclosed that the patient was demonstrating hallucinations approximately 10 minutes prior to clinician's arrival; reporting the patient was attempting to cee a cat out of her room. 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 Leti MD., includes: Discontinue Seroquel Discontinue Cymbalta Discontinue Ativan Discontinue Valium Discontinue Requip Discontinue Zyprexa Discontinue Visteral Continue Haldol 5mg twice daily Discontinue haldol 1mg every 4 hours as needed Increase Thorazine 50 mg every 8 hours as needed Decrease Buspar to 5mg twice daily Continue Cogentin 1 mg daily Add Clonidine 0.2 mg 12-hour patch Impression/Plan: Patient continues to be denies by psychiatric hosp itals;however, currently is still wait listed by [facility]. Patient currently does have a primary diagnosis of alcohol use disorder with a secondary of depressive disorder. Attending physician has implemented medication recommendations. At this time, there is significant concern the patient is having difficulties with abstract and rational thinking in addition to continued demonstrations of hallucinations that come and go. Will continue to follow. Dr. Mayer was consulted on the care and management of this patient; attending physician is in agreement with recommendations and disposition.
[2018-08-25] MEDS: ACETAMINOPHEN 325 MG TABLET PO PRN ×2 (14:56→21:07)
--- NOTE | 2018-08-25 15:34 | PSYCHOLOGICAL NOTE ---
Psych Note - Psych Note Date seen by psych provider: 08/25/18 Time seen by psych provider: 13:00 Psych Note: Reason for Consult: requested to re-visit with patient care Check in conducted with patient: Clinician notes patient is very cheerful today. She continues to demonstrate tangential thought processes. She discloses she has seen "wisps of darkness that cross her eyes...a rat was in the bathroom." She then proceeds to state that "with rats you get tomcats." Patient recognizes the tree of life pendent clinician is wearing she then stated "when did you go?" When clinician is asked for clarification and the patient then asked when clinician went to [employer]. 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 Leti MD., includes: Discontinue Seroquel Discontinue Cymbalta Discontinue Ativan Discontinue Valium Discontinue Requip Discontinue Zyprexa Discontinue Visteral Continue Haldol 5mg twice daily Discontinue haldol 1mg every 4 hours as needed Increase Thorazine 50 mg every 8 hours as needed Decrease Buspar to 5mg twice daily Continue Cogentin 1 mg daily Add Clonidine 0.2 mg 12-hour patch Impression/Plan: Patient continues to be denies by psychiatric hospitals;however, currently is still wait listed by [facility]. The Behavioral health team receives a call of confirmation daily checking to see if patient still needs placement. Patient currently does have a primary diagnosis of alcohol use disorder with a secondary of depressive disorder. At this time, there is significant concern the patient is having difficulties with abstract and rational thinking in addition to continued demonstrations of hallucinations that come and go and tangential thought processes. Will continue to follow. Dr. Mayer was consulted on the care and management of this patient; attending physician is in agreement with recommendations and disposition.
[2018-08-25] MEDS: ROPINIROLE HCL 0.25 MG TABLET PO SCH (16:53)
--- NOTE | 2018-08-25 18:01 | PDOC PROGRESS REPORT ---
Subjective Progress Note for:: 08/25/18 Subjective:: Still having some intermittent hallucinations. Needs constant redirection by staff. Is able to ambulate independently without an assistive device or person to assist her. Her affect varies substantially from one moment to the next. Reason For Visit: PANCREATITIS, ETOH INTOXICATION Physical Exam Vital Signs: Temp Pulse Resp BP Pulse Ox 98.5 F 79 16 107/71 100 08/25/18 15:18 08/25/18 15:18 08/25/18 15:18 08/25/18 15:18 08/25/18 15:18 Intake & Output 08/24/18 08/25/18 08/26/18 06:59 06:59 06:59 Intake Total 1454 1294 537 Balance 1454 1294 537 Weight 63.5 kg 66.6 kg General appearance: PRESENT: no acute distress, cooperative, disheveled Respiratory exam: PRESENT: clear to auscultation jose, symmetrical, unlabored. ABSENT: accessory muscle use, crackles, prolonged expiratory phas, rhonchi, tachypnea, wheezes Cardiovascular exam: PRESENT: RRR, +S1, +S2 Pulses: PRESENT: normal carotid pulses Vascular exam: PRESENT: normal capillary refill GI/Abdominal exam: PRESENT: normal bowel sounds, soft. ABSENT: distended, guarding, rebound, tenderness Extremities exam: ABSENT: clubbing, pedal edema Musculoskeletal exam: PRESENT: ambulatory, normal inspection. ABSENT: deformity Neurological exam: PRESENT: alert, awake, oriented to person, oriented to place Psychiatric exam: PRESENT: unusual affect Focused psych exam: PRESENT: delusional, restlessness Skin exam: PRESENT: dry, warm Results Laboratory Results: 08/18/18 05:33 08/18/18 05:33 07/29/18 11:47 Troponin I < 0.012 Impressions: Abdomen/Pelvis CT 07/29/18 11:42 IMPRESSION: Fatty liver Gallstones Peripancreatic retroperitoneal inflammation, question pancreatitis Cervical Spine CT 07/29/18 11:42 IMPRESSION: CHRONIC DEGENERATIVE CHANGES. NO ACUTE FINDINGS. Similar left thyroid nodule with calcifications. Chest CT 07/29/18 11:42 IMPRESSION: No acute changes Head CT 07/29/18 11:42 IMPRESSION: No acute intracranial findings. EVIDENCE OF ACUTE STROKE: NO. Assessment and Plan - Diagnosis (1) Alcohol withdrawal Qualifiers: Complication of substance-induced condition: with delirium Qualified Code(s): F10.231 - Alcohol dependence with withdrawal delirium Is this a current diagnosis for this admission?: Yes Plan: Resolved (2) Psychosis Qualifiers: Psychosis type: unspecified psychosis type Qualified Code(s): F29 - Unspecified psychosis not due to a substance or known physiological condition Is this a current diagnosis for this admission?: Yes Plan: I have reconsulted psychiatry for their recommendations. Medication recommendations have been implemented. Psychiatry is still working on placement for this patient. At this time the patient is able to perform her ADLs independently. - Time Time Spent with patient: 15-24 minutes
[2018-08-26] MEDS: HEPARIN SOD (PORCINE) 5,000 UNIT/ML 1 ML SYRINGE SUBCUT SCH ×3 (06:36→21:11)
[2018-08-26] MEDS: GABAPENTIN 400 MG CAPSULE PO SCH ×3 (06:36→21:12)
[2018-08-26] MEDS: ACETAMINOPHEN 325 MG TABLET PO PRN ×2 (06:54→21:29)
[2018-08-26] MEDS: AMLODIPINE BESYLATE 10 MG TABLET PO SCH (09:24)
[2018-08-26] MEDS: BENZTROPINE MESYLATE 1 MG TABLET PO SCH (09:24)
[2018-08-26] MEDS: BUSPIRONE HCL 10 MG TABLET PO SCH ×2 (09:24→18:12)
[2018-08-26] MEDS: FOLIC ACID 1 MG TABLET PO SCH (09:24)
[2018-08-26] MEDS: PROPRANOLOL HCL 20 MG TABLET PO SCH ×2 (09:24→21:12)
[2018-08-26] MEDS: NICOTINE 21 MG/24 HR PATCH.TD24 TD SCH (09:24)
[2018-08-26] MEDS: HALOPERIDOL 5 MG TABLET PO SCH ×2 (09:24→21:12)
[2018-08-26] MEDS: POLYETHYLENE GLYCOL 3350 POWDER 17 GM/1 PACKET PO SCH (09:29)
[2018-08-26] MEDS: THIAMINE HCL 100 MG TABLET PO SCH (09:30)
--- NOTE | 2018-08-26 15:28 | PDOC PROGRESS REPORT ---
Subjective Progress Note for:: 08/26/18 Subjective:: Still having some intermittent hallucinations. Needs constant redirection by staff. Is able to ambulate independently without an assistive device or person to assist her. Her affect varies substantially from one moment to the next. She has a very odd thoughts and often makes odd nonsensical statements. She has not demonstrated any hostile or aggressive behavior. Reason For Visit: PANCREATITIS, ETOH INTOXICATION Physical Exam Vital Signs: Temp Pulse Resp BP Pulse Ox 97.9 F 73 16 114/67 95 08/26/18 11:41 08/26/18 11:41 08/26/18 11:41 08/26/18 11:41 08/26/18 11:41 Intake & Output 08/25/18 08/26/18 08/27/18 06:59 06:59 06:59 Intake Total 1294 774 537 Output Total 0 Balance 1294 774 537 Weight 66.6 kg 68.8 kg General appearance: PRESENT: no acute distress, cooperative, disheveled Respiratory exam: PRESENT: clear to auscultation jose, symmetrical, unlabored. ABSENT: accessory muscle use, crackles, prolonged expiratory phas, rhonchi, tachypnea, wheezes Cardiovascular exam: PRESENT: RRR, +S1, +S2 Pulses: PRESENT: normal carotid pulses Vascular exam: PRESENT: normal capillary refill GI/Abdominal exam: PRESENT: normal bowel sounds, soft. ABSENT: distended, guarding, rebound, tenderness Extremities exam: ABSENT: clubbing, pedal edema Musculoskeletal exam: PRESENT: ambulatory, normal inspection. ABSENT: deformity Neurological exam: PRESENT: alert, awake, oriented to person, oriented to place Psychiatric exam: PRESENT: unusual affect Focused psych exam: PRESENT: delusional, restlessness Skin exam: PRESENT: dry, warm Results Laboratory Results: 08/18/18 05:33 08/18/18 05:33 07/29/18 11:47 Troponin I < 0.012 Impressions: Abdomen/Pelvis CT 07/29/18 11:42 IMPRESSION: Fatty liver Gallstones Peripancreatic retroperitoneal inflammation, question pancreatitis Cervical Spine CT 07/29/18 11:42 IMPRESSION: CHRONIC DEGENERATIVE CHANGES. NO ACUTE FINDINGS. Similar left thyroid nodule with calcifications. Chest CT 07/29/18 11:42 IMPRESSION: No acute changes Head CT 07/29/18 11:42 IMPRESSION: No acute intracranial findings. EVIDENCE OF ACUTE STROKE: NO. Assessment and Plan - Diagnosis (1) Alcohol withdrawal Qualifiers: Complication of substance-induced condition: with delirium Qualified Code(s): F10.231 - Alcohol dependence with withdrawal delirium Is this a current diagnosis for this admission?: Yes Plan: Resolved (2) Psychosis Qualifiers: Psychosis type: unspecified psychosis type Qualified Code(s): F29 - Unspecified psychosis not due to a substance or known physiological condition Is this a current diagnosis for this admission?: Yes Plan: I have reconsulted psychiatry for their recommendations. Medication recommendations have been implemented. Psychiatry is still working on placement for this patient. At this time the patient is able to perform her ADLs independently. - Time Time Spent with patient: 15-24 minutes
[2018-08-26] MEDS: ROPINIROLE HCL 0.25 MG TABLET PO SCH (21:12)
[2018-08-26] MEDS: CHLORPROMAZINE HCL INJ 25 MG/1 ML AMPULE IM PRN (22:40)
[2018-08-27] MEDS: HEPARIN SOD (PORCINE) 5,000 UNIT/ML 1 ML SYRINGE SUBCUT SCH ×3 (05:21→22:30)
[2018-08-27] MEDS: GABAPENTIN 400 MG CAPSULE PO SCH ×3 (06:44→22:33)
[2018-08-27] MEDS: NICOTINE 21 MG/24 HR PATCH.TD24 TD SCH (09:13)
[2018-08-27] MEDS: BUSPIRONE HCL 10 MG TABLET PO SCH ×2 (09:14→17:08)
[2018-08-27] MEDS: HALOPERIDOL 5 MG TABLET PO SCH ×2 (09:14→22:32)
[2018-08-27] MEDS: BENZTROPINE MESYLATE 1 MG TABLET PO SCH (09:14)
[2018-08-27] MEDS: POLYETHYLENE GLYCOL 3350 POWDER 17 GM/1 PACKET PO SCH (09:15)
[2018-08-27] MEDS: FOLIC ACID 1 MG TABLET PO SCH (12:03)
[2018-08-27] MEDS: PROPRANOLOL HCL 20 MG TABLET PO SCH ×2 (12:03→22:32)
[2018-08-27] MEDS: AMLODIPINE BESYLATE 10 MG TABLET PO SCH (12:05)
[2018-08-27] MEDS: THIAMINE HCL 100 MG TABLET PO SCH ×2 (12:15→17:08)
--- NOTE | 2018-08-27 12:44 | PROGRESS NOTE E ---
Progress Note NAME: ANDREW ROWE : 1960 AGE: 57Y DATE: 08/27/2018 ROOM: 329 SUBJECTIVE: The patient was sleeping in bed when I initially rounded. I came back later, and the patient was awake. She is alert to self. Still has some bizarre delusions. The patient has been afebrile. Blood pressure has been in good range, and the patient does not voice any other concerns at this time. REVIEW OF SYSTEMS: Rest of the review of systems is negative. MEDICATION: Medication has been reviewed. OBJECTIVE: GENERAL: The patient is a 57-year-old female who is awake, alert, and oriented. Does not appear to be distressed. VITAL SIGNS: Temperature 97.6, pulse 82, respirations 14, blood pressure 94/54, oxygen saturation 99% on room air. SKIN: Warm and dry. No rashes. Not diaphoretic. HEENT: Pupils are reactive. CVS: Heart is regular. CHEST: Clear, symmetrical. EXTREMITIES: There is no edema. PSYCHIATRIC: The patient does have an odd affect. DIAGNOSTICS/LAB VALUES: Hematology obtained on 08/18/2018: WBC 7.3, hemoglobin 14.8, hematocrit 43.3, platelet count 300,000. Chemistry obtained on 08/18/2018: Sodium 137, potassium 4.0, chloride 97, carbon dioxide 28, BUN 17, creatinine 0.78, glucose 148, calcium 10.1, bilirubin 0.58, AST 33, ALT 60, alkaline phosphatase 131. Total protein 8.3. Albumin 4.1. ASSESSMENT AND PLAN: 1. ALCOHOL WITHDRAWAL WITH DELIRIUM. The patient has completed her course of DT. Will continue supportive therapy including thiamine. Electrolyte replacement. 2. PSYCHOSIS. Unspecified. Do appreciate Psychiatry input with this. The patient is able to perform activities of daily living, is currently awaiting placement. 3. HYPERTENSION. Blood pressures are in an acceptable range. DISPOSITION: The patient is a full code. Depending on the patient's symptomatology and diagnostic findings, will reevaluate in the a.m. Time spent on this followup, including assessment, plan, physical examination, patient education, and review of records is 25 minutes. DICTATING PHYSICIAN: KELLEY SMILEY NP [id number] PHY#: [id number] ID: [id number] JOB#: [id number] ACCT: [id number] cc: >
--- NOTE | 2018-08-27 15:13 | PSYCHOLOGICAL NOTE ---
Psych Note - Psych Note Date seen by psych provider: 08/27/18 Time seen by psych provider: 13:00 Psych Note: Reason for consult: Check in on medication benefit Contact Permissions: Patient is sleeping upon arrival gathered collateral information from medical staff Diagnosis: 303.1 (F33.20) Alcohol Use Disorder, Moderate 291.89 (F10.24) Alcohol Induced Depressive Disorder, Severe R/O Neurodegenerative issues as a result of terminal make up operator alcohol use Medication recommendations as per psychiatric provider, Dr. Landeros are as follows: Discontinue Seroquel Discontinue Cymbalta Discontinue Ativan Discontinue Valium Discontinue Requip Discontinue Zyprexa Discontinue Visteral Continue Haldol 5mg twice daily Discontinue haldol 1mg every 4 hours as needed Increase Thorazine 50 mg every 8 hours as needed Decrease Buspar to 5mg twice daily Continue Cogentin 1 mg daily Add Clonidine 0.2 mg 12-hour patch Impression/Plan: Patient is recommended to maintain IVC for risk of harm to self or others due to impaired insight, judgment, and impulse control aeb patient is still actively experiencing primarily visual but also auditory hallucinations and would elope if able. Patient is a 57 yo female with likely neurodegenerative problems related to long-term alcohol use. Patient continues to be denied for IP psychiatric hospitalization. She is wait listed by [facility]. The Behavioral health team receives a call of confirmation daily checking to see if patient still needs placement. Consulted Dr. Mayer was consulted on the care and treatment of this patient; attending physician is in agreement with recommendations and disposition.
[2018-08-27] MEDS: ROPINIROLE HCL 0.25 MG TABLET PO SCH (22:32)
[2018-08-28] MEDS: HEPARIN SOD (PORCINE) 5,000 UNIT/ML 1 ML SYRINGE SUBCUT SCH ×2 (05:08→14:50)
[2018-08-28] MEDS: THIAMINE HCL 100 MG TABLET PO SCH ×3 (05:14→22:04)
[2018-08-28] MEDS: GABAPENTIN 400 MG CAPSULE PO SCH ×3 (05:14→22:05)
[2018-08-28] MEDS: CHLORPROMAZINE HCL INJ 25 MG/1 ML AMPULE IM PRN (05:59)
[2018-08-28 06:48] LABS: HEMATOCRIT 39.8 % (36.0-47.0); HEMOGLOBIN 13.6 g/dL (12.0-15.5); MEAN CORPUSCULAR HEMOGLOBIN 30.7 pg (27.0-33.4); MEAN CORPUSCULAR VOLUME 90 fl (80-97); PLATELET COUNT 230 10^3/uL (150-450); RED BLOOD COUNT 4.41 10^6/uL (3.72-5.28); RED CELL DISTRIBUTION WIDTH 14.1 % (11.5-14.0)
[2018-08-28 07:40] LABS: ANION GAP 10 (5-19); BLOOD UREA NITROGEN 11 mg/dL (7-20); CALCIUM 10.1 mg/dL (8.4-10.2); CARBON DIOXIDE 26 mmol/L (22-30); CHLORIDE 100 mmol/L (98-107); GLUCOSE 130 mg/dL (75-110); POTASSIUM 4.5 mmol/L (3.6-5.0); SODIUM 136.3 mmol/L (137-145)
[2018-08-28] MEDS: FOLIC ACID 1 MG TABLET PO SCH (11:45)
[2018-08-28] MEDS: BENZTROPINE MESYLATE 1 MG TABLET PO SCH (11:45)
[2018-08-28] MEDS: HALOPERIDOL 5 MG TABLET PO SCH ×2 (11:45→22:09)
[2018-08-28] MEDS: NICOTINE 21 MG/24 HR PATCH.TD24 TD SCH (11:46)
[2018-08-28] MEDS: BUSPIRONE HCL 10 MG TABLET PO SCH ×2 (11:49→22:05)
[2018-08-28] MEDS: POLYETHYLENE GLYCOL 3350 POWDER 17 GM/1 PACKET PO SCH (11:49)
--- NOTE | 2018-08-28 12:19 | PROGRESS NOTE E ---
Progress Note NAME: ANDREW ROWE : 1960 AGE: 57Y DATE: 08/28/2018 ROOM: 329 SUBJECTIVE: The patient is lying in bed. The patient has been given a sedative this morning and is still sleeping. There have been no reported episodes of vomiting nor diarrhea. The patient appears comfortable and no concerns are voiced at this time. REVIEW OF SYSTEMS: Unobtainable. MEDICATIONS: Reviewed. OBJECTIVE: GENERAL: The patient is a 57-year-old female that is currently sleeping and does not appear to be distressed. VITAL SIGNS: Temperature is 97.5, pulse 96, respirations 20, blood pressure is 102/67, oxygen saturation 99% on room air. SKIN: Warm. She is not diaphoretic. HEENT: There is no obvious JVD. Mucous membranes appear moist. CHEST: Symmetrical, unlabored. EXTREMITIES: No edema. PSYCHIATRIC: The patient is sleeping. DIAGNOSTICS: Lab values are as follows: Hematology obtained on 08/28/2018: WBCs are 8.0, hemoglobin is 13.6, hematocrit is 39.8, platelet count is 230,000. Chemistry obtained on 08/28/2018: Sodium is 136, potassium 4.5, chloride is 100, carbon dioxide 26, BUN 11, creatinine 0.54, glucose 30, calcium is 2.1, magnesium is 1.7. IMPRESSION AND PLAN: 1. ALCOHOL WITHDRAWAL WITH DELIRIUM. The patient completed her course of DTs. Continue supportive therapy, including thiamine and electrolyte replacement. 2. PSYCHOSIS, UNSPECIFIED. Do appreciate Psychiatry input. The patient remains under IVC and is waiting for placement. 3. HYPERTENSION. Blood pressure has been in acceptable range. DISPOSITION: The patient is a FULL CODE. Pending patient's symptomatology and diagnostic findings, will reevaluate in the a.m. Time spent on this followup, including assessment, plan and review of records is 10 minutes. DICTATING PHYSICIAN: KELLEY SMILEY NP [id number] PHY#: [id number] ID: [id number] JOB#: [id number] ACCT: [id number] cc: >
[2018-08-28] MEDS: PROPRANOLOL HCL 20 MG TABLET PO SCH ×2 (14:50→22:09)
[2018-08-28] MEDS: ROPINIROLE HCL 0.25 MG TABLET PO SCH (22:10)
[2018-08-28] MEDS ORDERED: CHLORPROMAZINE HCL INJ 25 MG/1 ML AMPULE ONE (23:16)
[2018-08-29] MEDS: THIAMINE HCL 100 MG TABLET PO SCH ×2 (02:12→13:07)
[2018-08-29] MEDS: GABAPENTIN 400 MG CAPSULE PO SCH (06:34)
[2018-08-29 08:21] VITALS: BP 113/65
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
[2018-08-29] MEDS: FOLIC ACID 1 MG TABLET PO SCH (10:18)
[2018-08-29] MEDS: BENZTROPINE MESYLATE 1 MG TABLET PO SCH (10:18)
[2018-08-29] MEDS: BUSPIRONE HCL 10 MG TABLET PO SCH (10:18)
[2018-08-29] MEDS: NICOTINE 21 MG/24 HR PATCH.TD24 TD SCH (10:19)
[2018-08-29] MEDS: PROPRANOLOL HCL 20 MG TABLET PO SCH (10:19)
[2018-08-29] MEDS: POLYETHYLENE GLYCOL 3350 POWDER 17 GM/1 PACKET PO SCH (10:19)
[2018-08-29] MEDS: HALOPERIDOL 5 MG TABLET PO SCH (10:19)
--- NOTE | 2018-08-29 10:34 | PROGRESS NOTE E ---
Progress Note NAME: ANDREW ROWE : 1960 AGE: 57Y DATE: 08/29/2018 ROOM: 329 SUBJECTIVE: The patient is lying in bed. She is sleeping this morning. Medication changes have been addressed. The patient is currently awaiting placement. No concerns are voiced at this time. MEDICATIONS: Reviewed. PHYSICAL EXAMINATION: GENERAL: The patient is a 57-year-old female that is sleeping. She does not appear to be distressed. VITAL SIGNS: As follows: Temperature is 98.0, pulse 79, respirations 13, blood pressure 113/65, oxygen saturation is 95% on room air. SKIN: Warm and dry. Not diaphoretic. HEENT: Mucous membranes appear moist. There is no evidence of JVP. CHEST: Symmetrical, unlabored. ABDOMEN: Nondistended. EXTREMITIES: No edema. DIAGNOSTICS: Lab values are as follows. Hematology obtained on 08/28/2018: WBCs are 8.0, hemoglobin is 13.6, hematocrit is 39.8, platelet count is 230,000. Chemistry obtained on 08/28/2018: Sodium is 136, potassium 4.5, chloride 100, carbon dioxide 26, BUN 11, creatinine 0.54, glucose 130, calcium is 10.1, magnesium is 1.7. IMPRESSION AND PLAN: 1. ALCOHOL WITHDRAWAL WITH DELIRIUM TREMENS. The patient has completed her course of DT's. Continue supportive therapy, including high-dose thiamine and electrolyte replacement. 2. PSYCHOSIS, UNSPECIFIED. The patient is currently awaiting placement. The patient remains under IVC. 3. HYPERTENSION. Blood pressure has been in an acceptable range. DISPOSITION: THE PATIENT IS A FULL CODE. Pending the patient's symptomatology and diagnostic findings, will re-evaluate in the a.m. Time spent on this followup, including assessment, is 10 minutes. DICTATING PHYSICIAN: KELLEY SMILEY NP [id number] PHY#: [id number] ID: [id number] JOB#: [id number] ACCT: [id number] cc: > MTDD
[2018-08-29] MEDS ORDERED: DIVALPROEX SODIUM 500 MG TAB.SR.24H PO SCH (11:00)
[2018-08-29] MEDS ORDERED: HALOPERIDOL 5 MG TABLET PO SCH (14:00)
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
== END 2018-08-29 17:00 | disposition home or self-care (01) | DRG 896 ==
LOC: ER 11:23 → EH 15:01 → 3S 18:02
PROVIDERS: ADMIT Internal Medicine; ATTEND Internal Medicine
DX: F10.229 Alcohol dependence with intoxication, unspecified (principal); K85.90 Acute pancreatitis without necrosis or infection, unspecified; E87.1 Hypo-osmolality and hyponatremia; A04.72 Enterocolitis due to Clostridium difficile, not specified as recurrent; N17.9 Acute kidney failure, unspecified; E51.2 Wernicke's encephalopathy; F10.239 Alcohol dependence with withdrawal, unspecified; F10.251 Alcohol dependence with alcohol-induced psychotic disorder with hallucinations; K70.10 Alcoholic hepatitis without ascites; S61.511A Laceration without foreign body of right wrist, initial encounter; F32.9 Major depressive disorder, single episode, unspecified; F17.210 Nicotine dependence, cigarettes, uncomplicated; X78.9XXA Intentional self-harm by unspecified sharp object, initial encounter; Y90.8 Blood alcohol level of 240 mg/100 ml or more; Y93.89 Activity, other specified; Y92.89 Other specified places as the place of occurrence of the external cause; Z78.1 Physical restraint status
CPT/HCPCS: 36415; 70450; 71260; 72125; 74177; 80048; 80053; 80061; 80074; 80076; 80307; 81001; 82140; 82272; 82962; 83690; 83735; 84484; 85025; 85027; 87040; 87045; 87205; 87493; 93005; 93010; 96361; 96374; 96375; 99285; J1630; J1644; J1885; J2060; J2300; J2405; J3230; J3360; J3370; J3475; J3480; J3490; J7030; J7040; J7120